=== PATIENT | female | born 1950 | race Caucasian/White ===

== ENCOUNTER 2016-09-05 10:39 | Emergency (ER) | payer MEDICARE ==
[~2016-09-05] VITALS: Ht 165.1 cm; Wt 90.0 kg
[~2016-09-05 10:39] MED LIST: ALPR-138 PO; CINA30 PO; FLUO10TA PO; INDO25CA PO; KCL10C PO; LACT PO; MAGN400 PO; METR500T10 PO; NITR-29 PO; RENATAB5 PO; SEVEL800 PO; WELL150T PO; [UNRECOGNIZED DRUG - CODE] PO; [UNRECOGNIZED DRUG - CODE] PO
[2016-09-05 11:01] VITALS: BP 154/91; PULSE 121; RESP 17; TEMP 98.3; O2SAT 100
--- NOTE | 2016-09-05 11:07 | PD ---
HPI Chief Complaint: Cardiac Complaint Time Seen by Provider: 10:49 Travel History International Travel<30 days: No Contact w/Intl Traveler<30days: No Traveled to known affect area: No History of Present Illness HPI This 66-year-old female is complaining of palpitations. She says the palpitations started around 9:00 this morning. She took a tablet of metoprolol. She has had these palpitations before related to atrial fibrillation. She takes metoprolol on an as-needed basis. She took the metoprolol and waited she rechecked her heart rate was 125. She has a dull ache in the left side of her chest. She gets atrial fibrillation about every month or 2. She is supposed to take aspirin daily. She has a history of renal failure and is on home peritoneal dialysis. PFSH Past Medical History Arthritis: Yes (back and neck off and on- not all the time.) Asthma: No Atrial Fibrillation: Yes Autoimmune Disease: No Blood Disorders: No Anxiety: Yes Depression: Yes Heart Rhythm Problems: Yes Cancer: Yes (left breast biopsy x2, surgery to remove infected clot) Cardiac Catheterization: Yes (2005) Cardiovascular Problems: Yes (AF) High Cholesterol: Yes Chemotherapy: No Chest Pain: Yes (intermittent) Congestive Heart Failure: No COPD: No Cerebrovascular Accident: No Diabetes: Yes (Borderline ) Patient Takes Glucophage: No Dialysis: Yes (PERITONEAL DIALYSIS) Diminished Hearing: Yes (Slightly hard of hearing) Endocrine: No Gastrointestinal Disorders: Yes (Hx "Gastric Distress") GERD: No Glaucoma: Yes Gout: Yes Genitourinary: Yes (Polycystic Kidney Disease) Headaches: Yes Hepatitis: No Hiatal Hernia: No Hypertension: Yes Immune Disorder: No Implanted Vascular Access Dvce: Yes Kidney Stones: No Musculoskeletal: Yes Neurologic: No Psychiatric: Yes Reproductive: No Respiratory: No Integumentary: Yes (Hx Eczema) Immunizations Current: Yes Migraines: Yes Myocardial Infarction: No Radiation Therapy: Yes (2-3yrs ago - nothing recurrant since) Renal Failure: Yes Seizures: No Sickle Cell Disease: No Sleep Apnea: No Thyroid Disease: No Ulcer: No Tetanus Vaccination: < 5 Years Influenza Vaccination: Yes Menopausal: Yes : 1 Dilation and Curettage (D&C): Yes Past Surgical History Abdominal Surgery: Yes (gallbladder, Peritoneal dialysis) AICD: No Arteriovenous Shunt: No Body Medical Devices: Peritoneal Port Cardiac Surgery: No Cholecystectomy: Yes Coronary Artery Bypass Graft: No Ear Surgery: No Endocrine Surgery: No Eye Surgery: No Genitourinary Surgery: No Gynecologic Surgery: Yes (D & C >10yrs) Insulin Pump: No Joint Replacement: No Oral Surgery: Yes (teeth extraction, root canal, one capped tooth) Pacemaker: No Thoracic Surgery: No Other Surgery: Yes (Insertion Peritoneal Dialysis Catheter, Right abdomen) Social History Alcohol Use: No Tobacco Use: No Substance Use: No Allergies-Medications (Allergen,Severity, Reaction): Coded Allergies: Codeine (Verified Allergy, Severe, NAUSEA/VOMITING, 09/05/16) Morphine (Verified Allergy, Severe, MIGRAINES, 09/05/16) Latex (Verified Allergy, Intermediate, Rash, 09/05/16) Percocet (Verified Allergy, Intermediate, ITCHING, 09/05/16) Doxycycline (Verified Adverse Reaction, Severe, GI UPSET, 09/05/16) *MDRO Multi-Drug Resistant Organism (Verified Adverse Reaction, Unknown, ) ESBL E.coli (urine) - 02/15/2016 Reported Meds & Prescriptions Reported Meds & Active Scripts Active Reported Sensipar (Cinacalcet) 90 Mg Tab 90 Mg PO DAILY Renvela (Sevelamer Carbonate) 800 Mg Tab 4 Tab PO TID Protonix (Pantoprazole Sodium) 40 Mg Tab 40 Mg PO DAILY Metoprolol Tartrate 50 Mg Tab 50 Mg PO DAILY Ketodan (Ketoconazole (Topical)) 2 % Aer 1 Applic TOPICAL DAILY K-Tab (Potassium Chloride) 10 Meq Tab 10 Meq PO BID Indomethacin 25 Mg Cap 25 Mg PO TID Take with food, milk, or antacids to decrease stomach adverse effects. Lortab (Hydrocodone-Acetaminophen) 5-325 Mg Tab 1 Tab PO Q8HR PRN Fluoxetine (Fluoxetine HCl) 40 Mg Cap 40 Cap PO DAILY Fludrocortisone (Fludrocortisone Acetate) 0.1 Mg Tab 0.1 Mg PO DAILY Bupropion HCl ER 12 HR (Bupropion HCl) 150 Mg Tab 150 Mg PO Q12HR Aspirin DR (Aspirin) 325 Mg Tabdr 325 Mg PO DAILY Asacol HD (Mesalamine) 800 Mg Tab 800 Mg PO TID Swallow whole. Take on an empty stomach. Alprazolam 0.25 Mg Tab 0.25 Mg PO Q8H PRN Review of Systems General / Constitutional: No: Fever, Chills Eyes: No: Diploplia, Blurred Vision HENT: No: Headaches Cardiovascular: Positive: Chest Pain or Discomfort, Palpitations, Irregular Rhythm, Tachycardia Respiratory: No: Wheezing, Sneezing Gastrointestinal: No: Vomiting, Diarrhea Genitourinary: No: Urgency Musculoskeletal: No: Myalgias Skin: No Rash Neurologic: No: Weakness Hematologic/Lymphatic: No: Easy Bruising Physical Exam Narrative GENERAL: Well-developed female SKIN: Warm and dry. HEAD: Atraumatic. Normocephalic. EYES: Pupils equal and round. No scleral icterus. No injection or drainage. ENT: No nasal bleeding or discharge. Mucous membranes pink and moist. NECK: Trachea midline. No JVD. CARDIOVASCULAR: Rapid irregular rate and rhythm. No murmur appreciated. RESPIRATORY: No accessory muscle use. Clear to auscultation. Breath sounds equal bilaterally. GASTROINTESTINAL: Abdomen soft, non-tender, nondistended. Hepatic and splenic margins not palpable. MUSCULOSKELETAL: No obvious deformities. No clubbing. No cyanosis. No edema. NEUROLOGICAL: Awake and alert. No obvious cranial nerve deficits. Motor grossly within normal limits. Normal speech. PSYCHIATRIC: Appropriate mood and affect; insight and judgment normal. Data Data Last Documented VS Vital Signs Date Time Temp Pulse Resp B/P Pulse Ox O2 Delivery O2 Flow Rate FiO2 09/05/16 12:43 71 17 132/71 97 Room Air 09/05/16 11:01 98.3 Orders Electrocardiogram (09/05/16 11:01) Complete Blood Count With Diff (09/05/16 11:01) Basic Metabolic Panel (Bmp) (09/05/16 11:01) Troponin I (09/05/16 11:01) Chest, Single Ap (09/05/16 11:01) Metoprolol Tartrate Inj (Lopressor Inj) (09/05/16 11:15) Urinalysis - C+S If Indicated (09/05/16 11:20) Urine Culture (09/05/16 11:20) Potassium Cl 40 Meq/30 Ml Liq (Kcl 40 Me (09/05/16 12:15) Labs Laboratory Tests Test 09/05/16 09/05/16 11:20 11:45 Urine Collection Type CLEAN CATCH Urine Color STRAW Urine Turbidity MOD Urine pH 6.5 Urine Specific [place] 1.010 Urine Protein 30 mg/dL Urine Glucose (UA) NEG mg/dL Urine Ketones NEG mg/dL Urine Occult Blood MOD Urine Nitrite POS Urine Bilirubin NEG Urine Leukocyte Esterase LARGE Urine RBC 20-24 /hpf Urine WBC INNUM /hpf Urine Squamous Epithelial 6-8 /hpf Cells Urine Bacteria FEW /hpf Microscopic Urinalysis Comment CULTURE INDICATED Urine Collection Time 11:20 White Blood Count 10.9 TH/MM3 Red Blood Count 3.33 MIL/MM3 Hemoglobin 11.1 GM/DL Hematocrit 34.1 % Mean Corpuscular Volume 102.4 FL Mean Corpuscular Hemoglobin 33.4 PG Mean Corpuscular Hemoglobin 32.6 % Concent Red Cell Distribution Width 17.1 % Platelet Count 184 TH/MM3 Mean Platelet Volume 7.2 FL Neutrophils (%) (Auto) 85.1 % Lymphocytes (%) (Auto) 7.0 % Monocytes (%) (Auto) 5.0 % Eosinophils (%) (Auto) 2.5 % Basophils (%) (Auto) 0.4 % Neutrophils # (Auto) 9.3 TH/MM3 Lymphocytes # (Auto) 0.8 TH/MM3 Monocytes # (Auto) 0.5 TH/MM3 Eosinophils # (Auto) 0.3 TH/MM3 Basophils # (Auto) 0.0 TH/MM3 CBC Comment DIFF FINAL Differential Comment Sodium Level 140 MEQ/L Potassium Level 2.5 MEQ/L Chloride Level 101 MEQ/L Carbon Dioxide Level 24.1 MEQ/L Anion Gap 15 MEQ/L Blood Urea Nitrogen 39 MG/DL Creatinine 11.00 MG/DL Estimat Glomerular Filtration 4 ML/MIN Rate Random Glucose 82 MG/DL Calcium Level 8.5 MG/DL Troponin I 0.02 NG/ML [facility] Medical Decision Making Medical Screen Exam Complete: Yes Emergency Medical Condition: Yes Medical Record Reviewed: Yes Differential Diagnosis Differential includes slight slight imbalance, atrial fibrillation, Narrative Course EKG shows atrial fibrillation. Patient was observed and had periods where her heart rate was 120 and I will go down to 70 with sinus rhythm. I had initially ordered Lopressor but it was withheld as she appeared to be normalizing. She is converted to normal sinus rhythm without any additional medication. Her potassium is low and she has been given some potassium supplement. She has also been found to have a urinary tract infection. Diagnosis Primary Impression: Paroxysmal atrial fibrillation with rapid ventricular response Additional Impressions: Hypokalemia Urinary tract infection Qualified Code: N30.00 - Acute cystitis without hematuria Scripts Ciprofloxacin (Cipro)500 Mg [id number] Mg PO BID #7 TAB Ref 0 Prov:Blanco Hudson MD 09/05/16 Disposition: 01 DISCHARGE HOME Condition: Stable Blanco Hudson MD Sep 05, 2016 11:07
[2016-09-05] MEDS ORDERED: METOPROLOL TARTRATE 5 MG/5 ML VIAL IV PUSH ONE (11:15)
[2016-09-05 11:28] LABS: GLUCOSE,URINE NEG (NEG); KETONE, URINE NEG (NEG); PH, URINE 6.5 (5.0-8.5)
[2016-09-05] MEDS ORDERED: INDO25CA PO (11:32)
[2016-09-05] MEDS ORDERED: K-TA10TA PO (11:32)
[2016-09-05] MEDS ORDERED: FLUD.1 PO (11:32)
[2016-09-05] MEDS ORDERED: PROT40TA PO (11:32)
[2016-09-05] MEDS ORDERED: BUPR1TAB29 PO (11:32)
[2016-09-05] MEDS ORDERED: SENS90TA PO (11:32)
[2016-09-05] MEDS ORDERED: HYDR-3533 PO (11:32)
[2016-09-05] MEDS ORDERED: ASPI325T27 PO (11:32)
[2016-09-05] MEDS ORDERED: METO50TA PO (11:32)
[2016-09-05] MEDS ORDERED: ASAC800T PO (11:32)
[2016-09-05] MEDS ORDERED: KETO2AER3 TOPICAL (11:32)
[2016-09-05] MEDS ORDERED: SEVEL800 PO (11:32)
[2016-09-05] MEDS ORDERED: ALPR0.25 PO (11:32)
[2016-09-05] MEDS ORDERED: FLUO40CA PO (11:32)
--- NOTE | 2016-09-05 11:33 | RADHPO ---
EXAM DATE/TIME: 09/05/2016 11:15 [facility] COMPARISON: CHEST SINGLE AP, February 15, 2016, 13:56. INDICATIONS : Chest pain. MEDICAL HISTORY : Hypertension. Cardiovascular disease. SURGICAL HISTORY : None. ENCOUNTER: Initial ACUITY: 1 day PAIN SCORE: 5/10 LOCATION: Bilateral chest FINDINGS: A single view of the chest demonstrates the lungs to be symmetrically aerated without evidence of mas s, infiltrate or effusion. The cardiomediastinal contours are unremarkable. Osseous structures are intact. CONCLUSION: No acute disease. Taz Cuellar MD on September 05, 2016 at 11:31 Board Certified Radiologist. This report was verified electronically.
[2016-09-05 11:36] LABS: BLOOD, URINE MOD (NEG); NITRITE,URINE POS (NEG)
[2016-09-05 11:37] LABS: METHOD OF COLLECTION CLEAN CATCH; URINE COLOR STRAW (YELLW/STRAW); WBC, URINE INNUM /hpf (0-5)
[2016-09-05 11:38] LABS: BACTERIA, URINE FEW /hpf; COMMENT (UR) CULTURE INDICATED; CULTURE IF INDICATED CULTURE INDICATED
[2016-09-05 11:50] VITALS: BP 118/83; PULSE 98; RESP 17; O2SAT 98
[2016-09-05 11:57] LABS: AUTOMATED NEUTROPHIL # 9.3 TH/MM3 (1.8-7.7); BASOPHIL % 0.4 % (0.0-2.0); EOSINOPHIL # 0.3 TH/MM3 (0-0.4); EOSINOPHIL % 2.5 % (0.0-4.0); HEMATOCRIT 34.1 % (35.0-46.0); HEMO FLAGS DIFF FINAL; LYMPHOCYTE # 0.8 TH/MM3 (1.0-4.8); MEAN CELL VOLUME 102.4 FL (80.0-100.0); MEAN CORPUSCULAR HEMOGLOBIN 33.4 PG (27.0-34.0); MEAN CORPUSCULAR HGB CONC 32.6 % (32.0-36.0); NEUT % 85.1 % (16.0-70.0); PLATELET COUNT 184 TH/MM3 (150-450); RED BLOOD COUNT 3.33 MIL/MM3 (4.00-5.30); RED CELL DISTRIBUTION WIDTH 17.1 % (11.6-17.2); WHITE BLOOD COUNT 10.9 TH/MM3 (4.0-11.0)
[2016-09-05 12:09] LABS: BICARBONATE 24.1 MEQ/L (21.0-32.0)
[2016-09-05 12:10] LABS: POTASSIUM 2.5 MEQ/L (3.5-5.1)
[2016-09-05] MEDS ORDERED: POTASSIUM CL 40 MEQ/30 ML LIQ UDC PO ONE (12:15)
[2016-09-05 12:43] VITALS: BP 132/71; PULSE 71; RESP 17; O2SAT 97
[2016-09-05] MEDS ORDERED: CIPR-9 PO (12:52)
[2016-09-05] MEDS ORDERED: CIPROFLOXACIN 500 MG TAB PO ONE (13:15)
--- NOTE | 2016-09-06 17:27 | EKG ---
Date Performed: 09/05/2016 Time Performed: 10:39:28 PTAGE: 66 years EKG: Sinus rhythm WITH PAC's NONSPECIFIC ST-T WAVE CHANGES/LIKELY NO SIGNIFICANT CHANGE. Abnormal ECG PREVIOUS TRACING : 02/15/2016 14.14 DOCTOR: Ryanne Brantley Interpretating Date/Time 09/06/2016 17:25:38
== END 2016-09-05 13:14 | disposition home or self-care (01) ==
LOC: PHED 10:39
DX: I48.0 Paroxysmal atrial fibrillation (principal); N18.9 Chronic kidney disease, unspecified; I12.9 Hypertensive chronic kidney disease with stage 1 through stage 4 chronic kidney disease, or unspecified chronic kidney disease; E78.00 Pure hypercholesterolemia, unspecified; E87.6 Hypokalemia; N39.0 Urinary tract infection, site not specified; Z99.2 Dependence on renal dialysis
CPT/HCPCS: 71010; 80048; 81001; 84484; 85025; 87077; 87086; 87186; 93005

== ENCOUNTER → 2017-06-30 | Day surgery (SDC) | payer MEDICARE ==
[~2017-06-30] MED LIST changes: -ALPR-138 PO; +ALPR0.25 PO; +ASAC800T PO; +ASPI325T27 PO; +BUPR1TAB29 PO; -CINA30 PO; +CIPR-9 PO; +FLUD.1 PO; -FLUO10TA PO; +FLUO40CA PO; +HYDR-3533 PO; +K-TA10TA PO; -KCL10C PO; +KETO2AER3 TOPICAL; -LACT PO; -MAGN400 PO; +METO50TA PO; -METR500T10 PO; -NITR-29 PO; +PROPOFOL 500 MG/50 ML BTL IV ONE; +PROT40TA PO; -RENATAB5 PO; +SENS90TA PO; +SODIUM CHLOR 0.9% 250 ML BAG IV ONE; -WELL150T PO; -[UNRECOGNIZED DRUG - CODE] PO; -[UNRECOGNIZED DRUG - CODE] PO
--- NOTE | 2017-06-30 11:05 | GIPROC ---
[facility] [address], [address] EGD PROCEDURE REPORT EXAM DATE: 06/30/2017 PATIENT NAME: Brandi Chavez MR #: [id number] BIRTHDATE: 1950 ATTENDING: Bud Tirado MD ORDER #: [id number] RESISTOR COATER: Dano Ospina RN STATUS: outpatient INDICATIONS: The patient is a 66 yr old female here for an EGD due to epigastric abdominal pain PROCEDURE PERFORMED: EGD w/ biopsy MEDICATIONS: None and Per Anesthesia. TOPICAL ANESTHETIC: CONSENT: The patient understands the risks and benefits of the procedure and understands that these risks include, but are not limited to: sedation, allergic reaction, infection, perforation and/or bleeding. Alternative means of evaluation and treatment include, among others: physical exam, x-rays, and/or surgical intervention. The patient elects to proceed with this endoscopic procedure. medical equipment was checked for proper function. Hand hygiene and appropriate measures for infection prevention was taken. After the risks, benefits and alternatives of the procedure were thoroughly explained, Informed consent was verified, confirmed and timeout was successfully executed by the treatment team. The patient was anesthetized with topical anesthesia and the EC-[id number] ([id number]) endoscope was introduced through the mouth and advanced to the second portion of the duodenum. Retroflexed views revealed no abnormalities The gastroscope was then slowly withdrawn and removed. ESOPHAGUS: There was LA Class A esophagitis noted. A biopsy was performed using cold forceps. Sample sent for histology. STOMACH: There was erythematous moderate gastritis in the gastric antrum. A biopsy was performed using cold forceps. Sample sent for histology. DUODENUM: The duodenal mucosa appeared normal in the bulb and second portion of the duodenum. ADVERSE EVENTS: There were no complications. IMPRESSIONS: 1. There was LA Class A esophagitis noted; biopsy was performed 2. There was erythematous gastritis in the gastric antrum; biopsy was performed 3. Normal duodenal mucosa in the bulb and second portion of the duodenum 4. Retroflexed views revealed no abnormalities RECOMMENDATIONS: 1. Await biopsy results. Biopsy results will not be ready for 7-10 days. If you don't hear from us in two weeks, call our office for biopsy results. 2. Anti-reflux regimen 3. Continue PPI 4. Avoid NSAIDS PATIENT CONDITION: stable DISPOSITION: Home REPEAT EXAM: Return 1 year EGD pending biopsy results Bud Tirado MD eSigned: Bud Tirado MD 06/30/2017 11:05 AM cc: Yareli Banks PATIENT NAME: Scott Brandi E MR#: [id number]
--- NOTE | 2017-06-30 11:21 | GIPROC ---
[facility] [address] [facility], [address] COLONOSCOPY PROCEDURE REPORT EXAM DATE: 06/30/2017 PATIENT NAME: Brandi Chavez MR #: [id number] BIRTHDATE: 1950 ENDOSCOPIST: Bud Tirado MD ORDER #: [id number] PASSENGER BARGE MASTER: Dano Ospina RN STATUS: outpatient INDICATIONS: The patient is a 66 yr old female here for a colonoscopy due to abdominal pain in the left lower quadrant PROCEDURE PERFORMED: Colonoscopy with biopsy MEDICATIONS: None and Per Anesthesia. PREP QUALITY: The [place] Bowel Prep Score was Right colon 2, Mid colon 2, and Left colon 3. Total = 7. ESTIMATED BLOOD LOSS: None CONSENT: The patient understands the risks and benefits of the procedure and understands that these risks include, but are not limited to: sedation, allergic reaction, infection, perforation and/or bleeding. Alternative means of evaluation and treatment include, among others: physical exam, x-rays, and/or surgical intervention. The patient elects to proceed with this endoscopic procedure. medical equipment was checked for proper function. Hand hygiene and appropriate measures for infection prevention was taken. After the risks, benefits and alternatives of the procedure were thoroughly explained, Informed consent was verified, confirmed and timeout was successfully executed by the treatment team. A digital exam revealed external hemorrhoids The [id number] ([id number]) endoscope was introduced through the anus and advanced to the cecum, which was identified by both the appendix and ileocecal valve. The instrument was then slowly withdrawn as the colon was fully examined. COLON FINDINGS: Moderate diverticulosis was noted in the sigmoid colon. No bleeding was noted from the diverticulosis. A polypoid shaped flat polyp ranging between 3-7mm in size was found in the ascending colon. Multiple biopsies were performed using cold forceps. Retroflexed views revealed internal hemorrhoids and Retroflexed views revealed medium internal hemorrhoids The scope was then completely withdrawn from the patient and the procedure terminated. PROCEDURE WITHDRAWAL TIME:7minutes ADVERSE EVENTS: There were no complications. IMPRESSIONS: 1. Moderate diverticulosis was noted in the sigmoid colon 2. A flat polyp ranging between 3-7mm in size was found in the ascending colon; multiple biopsies were performed using cold forceps 3. Retroflexed views revealed internal hemorrhoids 4. Retroflexed views revealed medium internal hemorrhoids 5. Revealed external hemorrhoids RECOMMENDATIONS: 1. Await biopsy results. Biopsy results will not be ready for 7-10 days. If you don't hear from us in two weeks, call our office for results. 2. Benefiber 2 tsp daily 3. Continue surveillance 4. Yearly hemoccult 5. No seeds, nuts and popcorn in diet 6. Xray for CT of abdomen without contrast 7. Xray for CT of pelvis without contrast 8. Follow-up: GI Clinic 3 week(s) RECALL: Return 3 years Colonoscopy, pending biopsy results Bud Tirado MD eSigned: Bud Tirado MD 06/30/2017 11:21 AM cc: Bailee Clemente [facility] PATIENT NAME: Brandi Chavez MR#: [id number]
== END | disposition home or self-care (01) ==
LOC: ESDC 09:30
PROVIDERS: ATTEND Internal Medicine Gastroenterology
DX: R10.32 Left lower quadrant pain (principal); K64.4 Residual hemorrhoidal skin tags; K57.90 Diverticulosis of intestine, part unspecified, without perforation or abscess without bleeding; D12.2 Benign neoplasm of ascending colon; K64.8 Other hemorrhoids; K20.9 Esophagitis, unspecified; R10.13 Epigastric pain; K29.70 Gastritis, unspecified, without bleeding
CPT/HCPCS: 00740; 00810; 43239; 45380; 88305; 88312; J3010; J7050

== ENCOUNTER 2017-07-04 14:28 | Emergency (ER) | payer MEDICARE ==
[~2017-07-04] VITALS: Ht 165.1 cm; Wt 89.0 kg
[~2017-07-04 14:28] MED LIST changes: -PROPOFOL 500 MG/50 ML BTL IV ONE; -SODIUM CHLOR 0.9% 250 ML BAG IV ONE
[2017-07-04 14:33] VITALS: BP 118/71; PULSE 77; RESP 16; TEMP 98.9; O2SAT 98
[2017-07-04] MEDS ORDERED: DICY10CA12 PO (15:34)
[2017-07-04] MEDS ORDERED: TRAM50TA PO (15:34)
[2017-07-04] MEDS ORDERED: KETO2CRE TOPICAL (15:34)
--- NOTE | 2017-07-04 16:40 | PD ---
HPI Chief Complaint: GI Complaint Time Seen by Provider: 15:49 Travel History International Travel<30 days: No Contact w/Intl Traveler<30days: No Traveled to known affect area: No History of Present Illness HPI PATIENT HAD UTI DIAGNOSED LAST WEEK, PLACED ON ABX...ON FRIDAY HAD PREP FOR UPPER AND LOWER GI, SINCE THEN HAS HAD LOOSE STOOLS. HERE FOR EVALUATION BECAUSE SHE HAS HAD A H/O CDIFF BEFORE. ALTHOUGH SHE ADMITS THAT THIS MAY BE FROM THE PREP WELL. PATIENT DENIES FEVER/CHILLS/ABD PAIN/CP/N/V/ AT THIS TIME. NO ALLEVIATING OR AGGRAVATING FACTORS GI [facility] Past Medical History Arthritis: Yes (back and neck off and on- not all the time.) Asthma: No Atrial Fibrillation: Yes Autoimmune Disease: No Blood Disorders: No Anxiety: Yes Depression: Yes Heart Rhythm Problems: Yes Cancer: Yes (left breast biopsy x2, surgery to remove infected clot) Cardiac Catheterization: Yes (2005) Cardiovascular Problems: Yes (AFIB) High Cholesterol: Yes Chemotherapy: No Chest Pain: Yes (intermittent) Congestive Heart Failure: No COPD: No Cerebrovascular Accident: No Diabetes: Yes (Borderline ) Patient Takes Glucophage: No Dialysis: Yes (PERITONEAL DIALYSIS) Diminished Hearing: Yes (Slightly hard of hearing) Endocrine: No Gastrointestinal Disorders: Yes (Hx "Gastric Distress") GERD: No Glaucoma: Yes Gout: Yes Genitourinary: Yes (Polycystic Kidney Disease) Headaches: Yes Hepatitis: No Hiatal Hernia: No Hypertension: Yes Immune Disorder: No Implanted Vascular Access Dvce: Yes Kidney Stones: No Musculoskeletal: Yes Neurologic: No Psychiatric: Yes Reproductive: No Respiratory: No Integumentary: Yes (Hx Eczema) Immunizations Current: Yes Migraines: Yes Myocardial Infarction: No Radiation Therapy: Yes (2-3yrs ago - nothing recurrant since) Renal Failure: Yes Seizures: No Sickle Cell Disease: No Sleep Apnea: No Thyroid Disease: No Ulcer: No Menopausal: Yes : 1 Dilation and Curettage (D&C): Yes Past Surgical History Abdominal Surgery: Yes (gallbladder, Peritoneal dialysis) AICD: No Arteriovenous Shunt: No Body Medical Devices: Peritoneal Port Cardiac Surgery: No Cholecystectomy: Yes Coronary Artery Bypass Graft: No Ear Surgery: No Endocrine Surgery: No Eye Surgery: No Genitourinary Surgery: No Gynecologic Surgery: Yes (D & C >10yrs) Insulin Pump: No Joint Replacement: No Oral Surgery: Yes (teeth extraction, root canal, one capped tooth) Pacemaker: No Thoracic Surgery: No Other Surgery: Yes (Insertion Peritoneal Dialysis Catheter, Right abdomen) Social History Alcohol Use: No Tobacco Use: No Substance Use: No Allergies-Medications (Allergen,Severity, Reaction): Coded Allergies: codeine (Unverified Allergy, Severe, NAUSEA/VOMITING, 07/04/17) morphine (Unverified Allergy, Severe, MIGRAINES, 07/04/17) acetaminophen (Unverified Allergy, Intermediate, ITCHING, 07/04/17) latex (Unverified Allergy, Intermediate, Rash, 07/04/17) oxycodone (Unverified Allergy, Intermediate, ITCHING, 07/04/17) doxycycline (Unverified Adverse Reaction, Severe, GI UPSET, 07/04/17) *MDRO Multi-Drug Resistant Organism (Verified Adverse Reaction, Unknown, 07/04/17) ESBL E.coli (urine) - 02/15/2016 Reported Meds & Prescriptions Reported Meds & Active Scripts Active Reported Ketoconazole Topical 2% Cream 1 Applic TOPICAL DAILY Dicyclomine (Dicyclomine HCl) 10 Mg Cap 10 Mg PO QID Tramadol (Tramadol HCl) 50 Mg Tab 50 Mg PO QID PRN Renvela (Sevelamer Carbonate) 800 Mg Tab 4 Tab PO TID K-Tab (Potassium Chloride) 10 Meq Tab 10 Meq PO BID Indomethacin 25 Mg Cap 25 Mg PO TID Take with food, milk, or antacids to decrease stomach adverse effects. Aspirin DR (Aspirin) 325 Mg Tabdr 325 Mg PO DAILY Alprazolam 0.25 Mg Tab 0.25 Mg PO Q8H PRN Review of Systems Except as stated in HPI: all other systems reviewed are Neg General / Constitutional: No: Fever Eyes: No: Visual changes HENT: No: Headaches Cardiovascular: No: Chest Pain or Discomfort Respiratory: No: Shortness of Breath Gastrointestinal: Positive: Diarrhea Genitourinary: No: Dysuria Musculoskeletal: No: Pain Skin: No Rash Neurologic: No: Weakness Psychiatric: No: Depression Endocrine: No: Polydipsia Hematologic/Lymphatic: No: Easy Bruising Physical Exam Narrative GENERAL: SKIN: Warm and dry. HEAD: Atraumatic. Normocephalic. EYES: Pupils equal and round. No scleral icterus. No injection or drainage. ENT: No nasal bleeding or discharge. Mucous membranes pink and moist. NECK: Trachea midline. No JVD. CARDIOVASCULAR: Regular rate and rhythm. RESPIRATORY: No accessory muscle use. Clear to auscultation. Breath sounds equal bilaterally. GASTROINTESTINAL: Abdomen soft, non-tender, nondistended. MUSCULOSKELETAL: Extremities without clubbing, cyanosis, or edema. No obvious deformities. NEUROLOGICAL: Awake and alert. No obvious cranial nerve deficits. Motor grossly within normal limits. Five out of 5 muscle strength in the arms and legs. Normal speech. PSYCHIATRIC: Appropriate mood and affect; insight and judgment normal. Data Data Last Documented VS Vital Signs Date Time Temp Pulse Resp B/P (MAP) Pulse Ox O2 Delivery O2 Flow Rate FiO2 07/04/17 14:33 98.9 77 16 118/71 (87) 98 Orders Orders Complete Blood Count With Diff (07/04/17 16:14) Basic Metabolic Panel (Bmp) (07/04/17 16:14) C Diff Toxin Pcr (07/04/17 16:14) Iv Access Insert/Monitor (07/04/17 16:14) Stool Wbc (Leukocytes) (07/04/17 16:14) Ct Abd/Pel W/O Iv Contrast (07/04/17 16:40) Labs Laboratory Tests Test 07/04/17 16:55 White Blood Count 9.3 TH/MM3 Red Blood Count 3.06 MIL/MM3 Hemoglobin 9.6 GM/DL Hematocrit 29.9 % Mean Corpuscular Volume 97.8 FL Mean Corpuscular Hemoglobin 31.5 PG Mean Corpuscular Hemoglobin Concent 32.2 % Red Cell Distribution Width 14.7 % Platelet Count 139 TH/MM3 Mean Platelet Volume 8.3 FL Neutrophils (%) (Auto) 78.2 % Lymphocytes (%) (Auto) 10.2 % Monocytes (%) (Auto) 8.1 % Eosinophils (%) (Auto) 2.8 % Basophils (%) (Auto) 0.7 % Neutrophils # (Auto) 7.2 TH/MM3 Lymphocytes # (Auto) 0.9 TH/MM3 Monocytes # (Auto) 0.8 TH/MM3 Eosinophils # (Auto) 0.3 TH/MM3 Basophils # (Auto) 0.1 TH/MM3 CBC Comment DIFF FINAL Differential Comment Creatinine 15.00 MG/DL Random Glucose 92 MG/DL Calcium Level 9.0 MG/DL Sodium Level 136 MEQ/L Potassium Level 3.2 MEQ/L Chloride Level 95 MEQ/L Carbon Dioxide Level 22.5 MEQ/L Anion Gap 19 MEQ/L Estimat Glomerular Filtration Rate 2 ML/MIN MDM Medical Decision Making Medical Screen Exam Complete: Yes Emergency Medical Condition: Yes Medical Record Reviewed: Yes Differential Diagnosis POST PREP DIARRHEA V CDIFF V Narrative Course CT ONLY POSITIVE FOR POLYCYSTIC DZ, WHICH IS KNOWN TO PATIENT, NO FREE AIR. Diagnosis Primary Impression: Diarrhea Qualified Codes: R19.7 - Diarrhea, unspecified Referrals: Christopher Park MD FOR OUTPATIENT TESTING OF STOOL SINCE YOU WERE UNABLE TO PROVIDE US WITH ANY STOOL SPECIMEN WHILE IN THE ER Disposition: 01 DISCHARGE HOME Condition: Stable Clive Peralta MD Jul 04, 2017 16:40
[2017-07-04 17:10] LABS: AUTOMATED NEUTROPHIL # 7.2 TH/MM3 (1.8-7.7); BASOPHIL # 0.1 TH/MM3 (0-0.2); BASOPHIL % 0.7 % (0.0-2.0); EOSINOPHIL # 0.3 TH/MM3 (0-0.4); EOSINOPHIL % 2.8 % (0.0-4.0); HEMATOCRIT 29.9 % (35.0-46.0); HEMO FLAGS DIFF FINAL; LYMPH % 10.2 % (9.0-44.0); LYMPHOCYTE # 0.9 TH/MM3 (1.0-4.8); MEAN CELL VOLUME 97.8 FL (80.0-100.0); MEAN CORPUSCULAR HEMOGLOBIN 31.5 PG (27.0-34.0); MEAN CORPUSCULAR HGB CONC 32.2 % (32.0-36.0); MONO % 8.1 % (0.0-8.0); NEUT % 78.2 % (16.0-70.0); PLATELET COUNT 139 TH/MM3 (150-450); RED BLOOD COUNT 3.06 MIL/MM3 (4.00-5.30); RED CELL DISTRIBUTION WIDTH 14.7 % (11.6-17.2); WHITE BLOOD COUNT 9.3 TH/MM3 (4.0-11.0)
[2017-07-04 17:17] LABS: POTASSIUM 3.2 MEQ/L (3.5-5.1)
[2017-07-04 17:20] LABS: BICARBONATE 22.5 MEQ/L (21.0-32.0)
--- NOTE | 2017-07-04 17:39 | RADRPT ---
EXAM DATE/TIME: 07/04/2017 17:17 [facility] COMPARISON: CT ABDOMEN & PELVIS W/O CONTRAST, June 10, 2016, 15:35. INDICATIONS : Left upper quadrant pain, diarrhea and fever x 5 days. ORAL CONTRAST: No oral contrast ingested. RADIATION DOSE: 18.57 CTDIvol (mGy) MEDICAL HISTORY : Renal failure, chronic. Cardiovascular disease Carcinoma, breast.Hypertension. Polycystic kidney dis ease. SURGICAL HISTORY : Cholecystectomy. Peritoneal dialysis. ENCOUNTER: Initial ACUITY: 4 - 6 days PAIN SCALE: 5/10 LOCATION: Left upper quadrant TECHNIQUE: Volumetric scanning of the abdomen and pelvis was performed. Using automated exposure control and ad justment of the mA and/or kV according to patient size, radiation dose was kept as low as reasonably achievable to obtain optimal diagnostic quality images. DICOM format image data is available electro nically for review and comparison. FINDINGS: The lung base is are clear. Small low-density lesion adjacent to the falciform liver is again seen i n the liver. The spleen and pancreas unremarkable. Large polycystic kidneys are evident. There is trace fluid in pelvis with peroneal dialysis catheter in good position. There is no adenopathy. I don't see an abscess. Review of bone windows reveals only degenerative changes. CONCLUSION: Findings consistent with known polycystic kidney disease no other findings are apprec iated. No other significant amount appreciated. Mynor Rincon MD FACR on July 04, 2017 at 17:34 Board Certified Radiologist. This report was verified electronically.
== END 2017-07-04 20:24 | disposition home or self-care (01) ==
LOC: PHED 14:28
DX: R19.7 Diarrhea, unspecified (principal)
CPT/HCPCS: 74176; 80048; 85025

== ENCOUNTER 2017-07-10 16:37 | Emergency (ER) | payer MEDICARE ==
[~2017-07-10] VITALS: Ht 165.1 cm; Wt 87.3 kg
[~2017-07-10 16:37] MED LIST changes: -ASAC800T PO; -BUPR1TAB29 PO; -CIPR-9 PO; +DICY10CA12 PO; -FLUD.1 PO; -FLUO40CA PO; -HYDR-3533 PO; -KETO2AER3 TOPICAL; +KETO2CRE TOPICAL; -METO50TA PO; -PROT40TA PO; -SENS90TA PO; +TRAM50TA PO
[2017-07-10 16:53] VITALS: BP 119/73; PULSE 74; RESP 16; TEMP 98.6; O2SAT 99
[2017-07-10] MEDS ORDERED: MAGN400T2 PO (17:23)
[2017-07-10] MEDS ORDERED: AMLO5TAB2 PO (17:23)
[2017-07-10] MEDS ORDERED: METO50TA PO (17:23)
[2017-07-10] MEDS ORDERED: HYDROmorphone HCL PF 0.5 MG/0.5 ML SYRINGE IV PUSH ONE (17:30)
[2017-07-10] MEDS ORDERED: SODIUM CHLORIDE 0.9% FLUSH 10 ML FLUSH IV FLUSH PRN (17:30)
[2017-07-10] MEDS ORDERED: diphenhydrAMINE HCL 50 MG/ML VIAL IV PUSH ONE (17:30)
[2017-07-10] MEDS ORDERED: SODIUM CHLORID 0.9% 500 ML INJ 500 ML IV ONE (17:30)
[2017-07-10] MEDS ORDERED: PROCHLORPERAZINE INJ 10 MG/2 ML VIAL IV PUSH ONE (17:30)
[2017-07-10 17:59] VITALS: BP 143/78; PULSE 78; RESP 18; O2SAT 99
[2017-07-10 18:05] LABS: AUTOMATED NEUTROPHIL # 9.9 TH/MM3 (1.8-7.7); BASOPHIL % 0.4 % (0.0-2.0); EOSINOPHIL # 0.1 TH/MM3 (0-0.4); EOSINOPHIL % 1.2 % (0.0-4.0); HEMATOCRIT 33.8 % (35.0-46.0); HEMO FLAGS DIFF FINAL; LYMPH % 5.9 % (9.0-44.0); LYMPHOCYTE # 0.7 TH/MM3 (1.0-4.8); MEAN CELL VOLUME 96.8 FL (80.0-100.0); MEAN CORPUSCULAR HEMOGLOBIN 30.7 PG (27.0-34.0); MEAN CORPUSCULAR HGB CONC 31.8 % (32.0-36.0); MONO % 5.8 % (0.0-8.0); NEUT % 86.7 % (16.0-70.0); PLATELET COUNT 155 TH/MM3 (150-450); RED BLOOD COUNT 3.49 MIL/MM3 (4.00-5.30); RED CELL DISTRIBUTION WIDTH 14.7 % (11.6-17.2); WHITE BLOOD COUNT 11.4 TH/MM3 (4.0-11.0)
[2017-07-10 18:13] LABS: CHLORIDE 91 MEQ/L (98-107); SODIUM (NA) 129 MEQ/L (136-145)
[2017-07-10 18:18] LABS: ANION GAP 18 MEQ/L (5-15); BICARBONATE 20.3 MEQ/L (21.0-32.0); BLOOD UREA NITROGEN 43 MG/DL (7-18)
[2017-07-10 18:21] LABS: ALT (GPT) 15 U/L (10-53); AST (GOT) 9 U/L (15-37); GLOMERULAR FILTRATION RATE 2 ML/MIN (>89)
[2017-07-10 18:23] LABS: TOTAL BILIRUBIN ADULT 0.4 MG/DL (0.2-1.0)
[2017-07-10 18:24] LABS: ALKALINE PHOSPHATASE 122 U/L (45-117)
--- NOTE | 2017-07-10 18:50 | PD ---
HPI Chief Complaint: Abdominal Pain Time Seen by Provider: 17:14 Travel History International Travel<30 days: No Contact w/Intl Traveler<30days: No Traveled to known affect area: No History of Present Illness HPI 66 yo F complains of generalized abdominal pain for approx 1 week with nausea and vomiting today. No fever. Pain worse with palpation. Pt performs night peritoneal dialysis and has been doing so without difficulty. No diarrhea. She follows with Dr. Berumen of renal. Additional complaints include a generalized headache. Which started after the vomiting episode prior to today' s ER visit. Decreased appetite reported. PFSH Past Medical History Arthritis: Yes (back and neck off and on- not all the time.) Asthma: No Atrial Fibrillation: Yes Autoimmune Disease: No Blood Disorders: No Anxiety: Yes Depression: Yes Heart Rhythm Problems: Yes Cancer: Yes (left breast biopsy x2, surgery to remove infected clot) Cardiac Catheterization: Yes (2005) Cardiovascular Problems: Yes (htn on meds , a-fib) High Cholesterol: Yes Chemotherapy: No Chest Pain: Yes (intermittent) Congestive Heart Failure: No COPD: No Cerebrovascular Accident: No Diabetes: Yes (Borderline ) Patient Takes Glucophage: No Dialysis: Yes (PERITONEAL DIALYSIS) Diminished Hearing: Yes (Slightly hard of hearing) Endocrine: No Gastrointestinal Disorders: Yes (Hx "Gastric Distress") GERD: No Glaucoma: Yes Gout: Yes Genitourinary: Yes (Polycystic Kidney Disease) Headaches: Yes Hepatitis: No Hiatal Hernia: No Hypertension: Yes Immune Disorder: No Implanted Vascular Access Dvce: Yes Kidney Stones: No Musculoskeletal: Yes Neurologic: No Psychiatric: Yes Reproductive: No Respiratory: No Integumentary: Yes (Hx Eczema) Immunizations Current: Yes Migraines: Yes Myocardial Infarction: No Radiation Therapy: Yes (2-3yrs ago - nothing recurrant since) Renal Failure: Yes Seizures: No Sickle Cell Disease: No Sleep Apnea: No Thyroid Disease: No Ulcer: No Influenza Vaccination: Yes ?: Not Menopausal: Yes : 1 Dilation and Curettage (D&C): Yes Past Surgical History Abdominal Surgery: Yes (gallbladder, Peritoneal dialysis) AICD: No Arteriovenous Shunt: No Body Medical Devices: Peritoneal Port Cardiac Surgery: No Cholecystectomy: Yes Coronary Artery Bypass Graft: No Ear Surgery: No Endocrine Surgery: No Eye Surgery: No Genitourinary Surgery: No Gynecologic Surgery: Yes (D & C >10yrs) Insulin Pump: No Joint Replacement: No Oral Surgery: Yes (teeth extraction, root canal, one capped tooth) Pacemaker: No Thoracic Surgery: No Other Surgery: Yes (Insertion Peritoneal Dialysis Catheter, Right abdomen) Social History Alcohol Use: No Tobacco Use: No Substance Use: No Allergies-Medications (Allergen,Severity, Reaction): Coded Allergies: codeine (Unverified Allergy, Severe, NAUSEA/VOMITING, 07/10/17) morphine (Unverified Allergy, Severe, MIGRAINES, 07/10/17) acetaminophen (Unverified Allergy, Intermediate, ITCHING, 07/10/17) latex (Unverified Allergy, Intermediate, Rash, 07/10/17) oxycodone (Unverified Allergy, Intermediate, ITCHING, 07/10/17) doxycycline (Unverified Adverse Reaction, Severe, GI UPSET, 07/10/17) *MDRO Multi-Drug Resistant Organism (Verified Adverse Reaction, Unknown, 07/10/17) ESBL E.coli (urine) - 02/15/2016 Reported Meds & Prescriptions Reported Meds & Active Scripts Active Reported Magnesium Oxide 400 Mg Tab 400 Mg PO DAILY Metoprolol Tartrate 50 Mg Tab 50 Mg PO BID Amlodipine (Amlodipine Besylate) 5 Mg Tab 5 Mg PO DAILY Ketoconazole Topical 2% Cream 1 Applic TOPICAL DAILY Renvela (Sevelamer Carbonate) 800 Mg Tab 4 Tab PO TID K-Tab (Potassium Chloride) 10 Meq Tab 10 Meq PO BID Indomethacin 25 Mg Cap 25 Mg PO TID Take with food, milk, or antacids to decrease stomach adverse effects. Alprazolam 0.25 Mg Tab 0.25 Mg PO Q8H PRN Review of Systems Except as stated in HPI: all other systems reviewed are Neg General / Constitutional: No: Fever Physical Exam Narrative GENERAL: 66 yo F, WNWD, NAD SKIN: Warm and dry. HEAD: Atraumatic. Normocephalic. EYES: Pupils equal and round. No scleral icterus. No injection or drainage. ENT: No nasal bleeding or discharge. Mucous membranes pink and moist. NECK: Trachea midline. No JVD. CARDIOVASCULAR: Regular rate and rhythm. RESPIRATORY: No accessory muscle use. Clear to auscultation. Breath sounds equal bilaterally. GASTROINTESTINAL: Soft. Diffuse non-specific TTP. MUSCULOSKELETAL: Extremities without clubbing, cyanosis, or edema. No obvious deformities. NEUROLOGICAL: Awake and alert. No obvious cranial nerve deficits. Motor grossly within normal limits. Five out of 5 muscle strength in the arms and legs. Normal speech. PSYCHIATRIC: Appropriate mood and affect; insight and judgment normal. Data Data Last Documented VS Vital Signs Date Time Temp Pulse Resp B/P (MAP) Pulse Ox O2 Delivery O2 Flow Rate FiO2 07/10/17 18:34 18 07/10/17 17:59 78 143/78 (99) 99 Room Air 07/10/17 16:53 98.6 VS reviewed Orders Orders Complete Blood Count With Diff (07/10/17 17:18) Comprehensive Metabolic Panel (07/10/17 17:18) Lipase (07/10/17 17:18) Iv Access Insert/Monitor (07/10/17 17:18) Ecg Monitoring (07/10/17:18) Oximetry (07/10/17 17:18) Sodium Chloride 0.9% Flush (Ns Flush) (07/10/17 17:30) Prochlorperazine Inj (Compazine Inj) (07/10/17 17:30) Diphenhydramine Inj (Benadryl Inj) (07/10/17 17:30) Hydromorphone Pf Inj (Dilaudid Pf Inj) (07/10/17 17:30) Urinalysis - C+S If Indicated (07/10/17 17:28) Sodium Chlorid 0.9% 500 Ml Inj (Ns 500 M (07/10/17 17:30) Labs Laboratory Tests Test 07/10/17 17:40 White Blood Count 11.4 TH/MM3 Red Blood Count 3.49 MIL/MM3 Hemoglobin 10.7 GM/DL Hematocrit 33.8 % Mean Corpuscular Volume 96.8 FL Mean Corpuscular Hemoglobin 30.7 PG Mean Corpuscular Hemoglobin Concent 31.8 % Red Cell Distribution Width 14.7 % Platelet Count 155 TH/MM3 Mean Platelet Volume 8.9 FL Neutrophils (%) (Auto) 86.7 % Lymphocytes (%) (Auto) 5.9 % Monocytes (%) (Auto) 5.8 % Eosinophils (%) (Auto) 1.2 % Basophils (%) (Auto) 0.4 % Neutrophils # (Auto) 9.9 TH/MM3 Lymphocytes # (Auto) 0.7 TH/MM3 Monocytes # (Auto) 0.7 TH/MM3 Eosinophils # (Auto) 0.1 TH/MM3 Basophils # (Auto) 0.0 TH/MM3 CBC Comment DIFF FINAL Differential Comment Blood Urea Nitrogen 43 MG/DL Creatinine 15.00 MG/DL Random Glucose 112 MG/DL Total Protein 5.9 GM/DL Albumin 3.1 GM/DL Calcium Level 9.3 MG/DL Alkaline Phosphatase 122 U/L Aspartate Amino Transf (AST/SGOT) 9 U/L Alanine Aminotransferase (ALT/SGPT) 15 U/L Total Bilirubin 0.4 MG/DL Sodium Level 129 MEQ/L Potassium Level 3.0 MEQ/L Chloride Level 91 MEQ/L Carbon Dioxide Level 20.3 MEQ/L Anion Gap 18 MEQ/L Estimat Glomerular Filtration Rate 2 ML/MIN Lipase 172 U/L [facility] Medical Decision Making Medical Screen Exam Complete: Yes Emergency Medical Condition: Yes Differential Diagnosis Metabolic disarray, anemia, urinary tract infection, hepatobiliary disease, spontaneous bacterial peritonitis Narrative Course CBC & BMP Diagram 07/10/17 17:40 Total Protein 5.9 L, Albumin 3.1 L, Calcium Level 9.3, Alkaline Phosphatase 122 H, Aspartate Amino Transf (AST/SGOT) 9 L, Alanine Aminotransferase (ALT/SGPT) 15 , Total Bilirubin 0.4 Lipase 172 Compazine and 500cc NS bolus given. Pt reports improvement at 647pm. UA pending Case discussed with oncoming provider with plan for discharge home pending results of UA. Referrals: Josh Berumen MD 2 days Disposition: 01 DISCHARGE HOME Condition: Stable Eddie Ojeda MD Jul 10, 2017 18:50
[2017-07-10 19:09] LABS: BLOOD, URINE MOD (NEG); GLUCOSE,URINE NEG (NEG); KETONE, URINE NEG (NEG); NITRITE,URINE NEG (NEG); PH, URINE 6.5 (5.0-8.5)
[2017-07-10 19:11] LABS: URINE COLOR YELLOW (YELLW/STRAW); WBC, URINE 15-19 /hpf (0-5)
[2017-07-10 19:12] LABS: BACTERIA, URINE MOD /hpf; COMMENT (UR) CULTURE INDICATED; CULTURE IF INDICATED CULTURE INDICATED; SQUAMOUS EPITHELIAL CELL URINE > 8 /hpf (0-5)
[2017-07-10 19:34] VITALS: BP 145/75; PULSE 80; RESP 16; O2SAT 96
[2017-07-10] MEDS ORDERED: BACT800T5 PO (20:15)
--- NOTE | 2017-07-10 20:16 | PD ---
Physical Exam Time Seen by Provider: 20:[address] Ojeda left this patient with me to check the urine and make a disposition , likely discharge. Also, the patient's dialysate is clear. She has had peritonitis once before and she states this is not nearly as bad as a peritonitis in the past and she does not believe this is peritonitis.. Data Data Last Documented VS Vital Signs Date Time Temp Pulse Resp B/P (MAP) Pulse Ox O2 Delivery O2 Flow Rate FiO2 07/10/17 19:34 80 16 145/75 (98) 96 Room Air 07/10/17 16:53 98.6 Orders Orders Complete Blood Count With Diff (07/10/17 17:18) Comprehensive Metabolic Panel (07/10/17 17:18) Lipase (07/10/17 17:18) Iv Access Insert/Monitor (07/10/17:18) Ecg Monitoring (07/10/17 17:18) Oximetry (07/10/17 17:18) Sodium Chloride 0.9% Flush (Ns Flush) (07/10/17 17:30) Prochlorperazine Inj (Compazine Inj) (07/10/17 17:30) Diphenhydramine Inj (Benadryl Inj) (07/10/17 17:30) Hydromorphone Pf Inj (Dilaudid Pf Inj) (07/10/17 17:30) Urinalysis - C+S If Indicated (07/10/17 17:28) Sodium Chlorid 0.9% 500 Ml Inj (Ns 500 M (07/10/17 17:30) Urine Culture (07/10/17 18:45) Labs Laboratory Tests Test 07/10/17 17:40 07/10/17 18:45 White Blood Count 11.4 TH/MM3 Red Blood Count 3.49 MIL/MM3 Hemoglobin 10.7 GM/DL Hematocrit 33.8 % Mean Corpuscular Volume 96.8 FL Mean Corpuscular Hemoglobin 30.7 PG Mean Corpuscular Hemoglobin Concent 31.8 % Red Cell Distribution Width 14.7 % Platelet Count 155 TH/MM3 Mean Platelet Volume 8.9 FL Neutrophils (%) (Auto) 86.7 % Lymphocytes (%) (Auto) 5.9 % Monocytes (%) (Auto) 5.8 % Eosinophils (%) (Auto) 1.2 % Basophils (%) (Auto) 0.4 % Neutrophils # (Auto) 9.9 TH/MM3 Lymphocytes # (Auto) 0.7 TH/MM3 Monocytes # (Auto) 0.7 TH/MM3 Eosinophils # (Auto) 0.1 TH/MM3 Basophils # (Auto) 0.0 TH/MM3 CBC Comment DIFF FINAL Differential Comment Blood Urea Nitrogen 43 MG/DL Creatinine 15.00 MG/DL Random Glucose 112 MG/DL Total Protein 5.9 GM/DL Albumin 3.1 GM/DL Calcium Level 9.3 MG/DL Alkaline Phosphatase 122 U/L Aspartate Amino Transf (AST/SGOT) 9 U/L Alanine Aminotransferase (ALT/SGPT) 15 U/L Total Bilirubin 0.4 MG/DL Sodium Level 129 MEQ/L Potassium Level 3.0 MEQ/L Chloride Level 91 MEQ/L Carbon Dioxide Level 20.3 MEQ/L Anion Gap 18 MEQ/L Estimat Glomerular Filtration Rate 2 ML/MIN Lipase 172 U/L Urine Color YELLOW Urine Turbidity CLOUDY Urine pH 6.5 Urine Specific [place] 1.012 Urine Protein 100 mg/dL Urine Glucose (UA) NEG mg/dL Urine Ketones NEG mg/dL Urine Occult Blood MOD Urine Nitrite NEG Urine Bilirubin NEG Urine Leukocyte Esterase LARGE Urine RBC 4-9 /hpf Urine WBC 15-19 /hpf Urine WBC Clumps FEW Urine Squamous Epithelial Cells > 8 /hpf Urine Bacteria MOD /hpf Microscopic Urinalysis Comment CULTURE INDICATED MDM Medical Record Reviewed: Yes Supervised Visit with VIRGIE: Yes Interpretation(s) The CBC shows white count 11,400 with a hemoglobin of 10.7 and hematocrit of 33.8. The neutrophils are 87%. The complete metabolic profile shows a sodium of 129, potassium 3.0, bicarbonate of 20.3 and anion gap of 18 with BUN of 43 and creatinine of 15 and GFR of 2 and alkaline phosphatase of 122 with total protein 5.9 and albumen of 3.1. The lipase is normal. The urinalysis shows cloudy turbidity, 100 protein, moderate occult blood, large leukocyte esterase with 4-9 red cells in 15-19 white cells and few white cell clumping's and moderate bacteria and culture is indicated. Differential Diagnosis Gastritis, peritonitis, urinary tract infection, colitis, electrolyte disorder, anemia Narrative Course The patient does have anemia of chronic disease. She does have a urinary tract infection and will be given Bactrim DS for this. Referrals: Josh Berumen MD 2 days Additional Instruction: Follow-up with Dr. Russo tomorrow or early next week. The Bactrim is one tablet twice daily for 10 days. Med/Other Pt SpecificInfo: Prescription(s) given Scripts Sulfamethoxazole-Trimethoprim (Bactrim DS) 800-160 Mg Tab 1 TAB PO BID for Infection, #20 TAB 0 Refills Prov: Lupillo Judd MD 07/10/17 Disposition: 01 DISCHARGE HOME Condition: Stable Lupillo Judd MD Jul 10, 2017 20:16
[2017-07-10] MEDS ORDERED: SULFAMETHOXAZOLE-TRIMETHOPRIM DS 800-160 MG TAB PO ONE (20:30)
[2017-07-10 20:32] VITALS: BP 140/70
== END 2017-07-10 20:43 | disposition home or self-care (01) ==
LOC: PHED 16:37
DX: N39.0 Urinary tract infection, site not specified (principal); Q61.3 Polycystic kidney, unspecified; D63.1 Anemia in chronic kidney disease; I12.0 Hypertensive chronic kidney disease with stage 5 chronic kidney disease or end stage renal disease; I48.91 Unspecified atrial fibrillation; E78.00 Pure hypercholesterolemia, unspecified; N18.6 End stage renal disease; Z99.2 Dependence on renal dialysis
CPT/HCPCS: 80053; 81001; 83690; 85025; 87086; 96361; 96374; 96375; 99284; J0780; J1170; J1200; J7040

== ENCOUNTER 2017-07-22 11:23 | Inpatient (IN) | payer MEDICARE ==
[~2017-07-22] VITALS: Ht 165.1 cm; Wt 88.7 kg
[~2017-07-22 11:23] MED LIST changes: +AMLO5TAB2 PO; -ASPI325T27 PO; +BACT800T5 PO; -DICY10CA12 PO; +MAGN400T2 PO; +METO50TA PO; -TRAM50TA PO
[2017-07-22 11:27] VITALS: BP 75/48; PULSE 114; RESP 16; TEMP 97.8
[2017-07-22] MEDS ORDERED: SODIUM CHLOR 0.9% 1000 ML INJ 1,000 ML IV ONE ×3 (11:45→13:30)
--- NOTE | 2017-07-22 11:46 | PD ---
HPI Chief Complaint: GI Complaint Time Seen by Provider: 11:33 Travel History International Travel<30 days: No Contact w/Intl Traveler<30days: No Traveled to known affect area: No History of Present Illness HPI Patient is a 66-year-old female presents emergency department for evaluation of diarrhea over the past month which initially started while she was prepping for lower GI. Patient is end-stage renal disease on peritoneal dialysis at night. She states she just been having some abdominal cramping but states that her a fluid fluid is been normal. Presents to emergency department today because she' s been feeling weak. She seen Dr. Tirado who ordered a C. difficile test but she has not been able to give a stool sample for this. Denies any blood in the stool denies endorse some mild nausea without vomiting. Denies any fevers. PFSH Past Medical History Arthritis: Yes (back and neck off and on- not all the time.) Asthma: No Atrial Fibrillation: Yes Autoimmune Disease: No Blood Disorders: No Anxiety: Yes Depression: Yes Heart Rhythm Problems: Yes Cancer: Yes (left breast biopsy x2, surgery to remove infected clot) Cardiac Catheterization: Yes (2005) Cardiovascular Problems: Yes (htn on meds , a-fib) High Cholesterol: Yes Chemotherapy: No Chest Pain: Yes (intermittent) Congestive Heart Failure: No COPD: No Cerebrovascular Accident: No Diabetes: Yes (Borderline ) Patient Takes Glucophage: No Dialysis: Yes (PERITONEAL DIALYSIS) Diminished Hearing: Yes (Slightly hard of hearing) Endocrine: No Gastrointestinal Disorders: Yes (Hx "Gastric Distress") GERD: No Glaucoma: Yes Gout: Yes Genitourinary: Yes (Polycystic Kidney Disease) Headaches: Yes Hepatitis: No Hiatal Hernia: No Heparin Induced Thrombocytopen: No Hypertension: Yes Immune Disorder: No Implanted Vascular Access Dvce: Yes Kidney Stones: No Medical other: No Musculoskeletal: Yes Neurologic: No Psychiatric: Yes Reproductive: No Respiratory: No Integumentary: Yes (Hx Eczema) Immunizations Current: Yes Migraines: Yes Myocardial Infarction: No Radiation Therapy: Yes (2-3yrs ago - nothing recurrant since) Renal Failure: Yes Seizures: No Sickle Cell Disease: No Sleep Apnea: No Thyroid Disease: No Ulcer: No Tetanus Vaccination: < 5 Years ?: Not Menopausal: Yes : 1 Dilation and Curettage (D&C): Yes Past Surgical History Abdominal Surgery: Yes (gallbladder, Peritoneal dialysis) AICD: No Arteriovenous Shunt: No Body Medical Devices: Peritoneal Port Cardiac Surgery: No Cholecystectomy: Yes Coronary Artery Bypass Graft: No Ear Surgery: No Endocrine Surgery: No Eye Surgery: No Genitourinary Surgery: No Gynecologic Surgery: Yes (D & C >10yrs) Insulin Pump: No Joint Replacement: No Neurologic Surgery: No Oral Surgery: Yes (teeth extraction, root canal, one capped tooth) Pacemaker: No Thoracic Surgery: No Other Surgery: Yes (Insertion Peritoneal Dialysis Catheter, Right abdomen) Family History Family Myocardial Infarction: No Social History Alcohol Use: No Tobacco Use: No Substance Use: No Allergies-Medications (Allergen,Severity, Reaction): Coded Allergies: codeine (Unverified Allergy, Severe, NAUSEA/VOMITING, 07/22/17) morphine (Unverified Allergy, Severe, MIGRAINES, 07/22/17) acetaminophen (Unverified Allergy, Intermediate, ITCHING, 07/22/17) latex (Unverified Allergy, Intermediate, Rash, 07/22/17) oxycodone (Unverified Allergy, Intermediate, ITCHING, 07/22/17) doxycycline (Unverified Adverse Reaction, Severe, GI UPSET, 07/22/17) *MDRO Multi-Drug Resistant Organism (Verified Adverse Reaction, Unknown, 07/22/17) ESBL E.coli (urine) - 02/15/2016 Reported Meds & Prescriptions Reported Meds & Active Scripts Active Reported [Anti For Bladder ] Magnesium Oxide 400 Mg Tab 400 Mg PO DAILY Metoprolol Tartrate 50 Mg Tab 50 Mg PO BID Renvela (Sevelamer Carbonate) 800 Mg Tab 4 Tab PO TID K-Tab (Potassium Chloride) 10 Meq Tab 10 Meq PO BID Alprazolam 0.25 Mg Tab 0.25 Mg PO Q8H PRN Review of Systems Except as stated in HPI: all other systems reviewed are Neg Physical Exam Narrative GENERAL: WD/WN appears ill. SKIN: Warm and dry. Decreased skin turgor. HEAD: Atraumatic. Normocephalic. EYES: Pupils equal and round. No scleral icterus. No injection or drainage. ENT: No nasal bleeding or discharge. Mucous membranes pink and Dry. NECK: Trachea midline. No JVD. CARDIOVASCULAR: Regular rate and rhythm. RESPIRATORY: No accessory muscle use. Clear to auscultation. Breath sounds equal bilaterally. GASTROINTESTINAL: Abdomen soft, non-tender, nondistended. Hepatic and splenic margins not palpable. PD catheter site C/D/I. MUSCULOSKELETAL: Extremities without clubbing, cyanosis, or edema. No obvious deformities. NEUROLOGICAL: Awake and alert. No obvious cranial nerve deficits. Motor grossly within normal limits. Five out of 5 muscle strength in the arms and legs. Normal speech. PSYCHIATRIC: Appropriate mood and affect; insight and judgment normal. Data Data Last Documented VS Vital Signs Date Time Temp Pulse Resp B/P (MAP) Pulse Ox O2 Delivery O2 Flow Rate FiO2 07/22/17 12:16 97.9 80 16 94/67 (76) 92 Nasal Cannula 2.00 Orders Orders Complete Blood Count With Diff (07/22/17 11:37) Comprehensive Metabolic Panel (07/22/17 11:37) Prothrombin Time / Inr (Pt) (07/22/17 11:37) Act Partial Throm Time (Ptt) (07/22/17 11:37) Lactic Acid Sepsis Protocol (07/22/17 11:37) Magnesium (Mg) (07/22/17 11:37) Phosphorus (Po4) (07/22/17 11:37) Lipase (07/22/17 11:37) Ckmb (Isoenzyme) Profile (07/22/17 11:37) Troponin I (07/22/17 11:37) Urinalysis - C+S If Indicated (07/22/17 11:37) Blood Culture (07/22/17 11:37) Blood Glucose (07/22/17 11:37) Ecg Monitoring (07/22/17 11:37) Iv Access Insert/Monitor (07/22/17 11:37) Oximetry (07/22/17 11:37) Oxygen Administration (07/22/17 11:37) Sodium Chlor 0.9% 1000 Ml Inj (Ns 1000 M (07/22/17 11:45) Sodium Chlor 0.9% 1000 Ml Inj (Ns 1000 M (07/22/17 12:45) Electrocardiogram (07/22/17 ) Potassium Chlor 10 Meq Premix (Kcl 10 Me (07/22/17 12:45) Aspirin Chew (Aspirin Chew) (07/22/17 12:45) Ct Abd/Pel W/O Iv Contrast (07/22/17 ) Labs Laboratory Tests Test 07/22/17 11:50 07/22/17 11:55 White Blood Count 17.3 TH/MM3 Red Blood Count 3.31 MIL/MM3 Hemoglobin 10.2 GM/DL Hematocrit 31.5 % Mean Corpuscular Volume 95.2 FL Mean Corpuscular Hemoglobin 30.8 PG Mean Corpuscular Hemoglobin Concent 32.4 % Red Cell Distribution Width 14.7 % Platelet Count 205 TH/MM3 Mean Platelet Volume 8.4 FL Neutrophils (%) (Auto) 85.0 % Lymphocytes (%) (Auto) 6.0 % Monocytes (%) (Auto) 7.1 % Eosinophils (%) (Auto) 1.5 % Basophils (%) (Auto) 0.4 % Neutrophils # (Auto) 14.7 TH/MM3 Lymphocytes # (Auto) 1.0 TH/MM3 Monocytes # (Auto) 1.2 TH/MM3 Eosinophils # (Auto) 0.3 TH/MM3 Basophils # (Auto) 0.1 TH/MM3 CBC Comment DIFF FINAL Differential Comment Prothrombin Time 10.2 SEC Prothromb Time International Ratio 0.9 RATIO Activated Partial Thromboplast Time 22.5 SEC Blood Urea Nitrogen 35 MG/DL Creatinine 12.00 MG/DL Random Glucose 112 MG/DL Total Protein 6.4 GM/DL Albumin 2.7 GM/DL Calcium Level 9.2 MG/DL Phosphorus Level 4.8 MG/DL Magnesium Level 2.4 MG/DL Alkaline Phosphatase 131 U/L Aspartate Amino Transf (AST/SGOT) 11 U/L Alanine Aminotransferase (ALT/SGPT) 23 U/L Total Bilirubin 0.4 MG/DL Sodium Level 134 MEQ/L Potassium Level 2.9 MEQ/L Chloride Level 97 MEQ/L Carbon Dioxide Level 20.3 MEQ/L Anion Gap 17 MEQ/L Estimat Glomerular Filtration Rate 3 ML/MIN Total Creatine Kinase 39 U/L Troponin I 0.43 NG/ML Lipase 110 U/L Lactic Acid Level 2.3 mmol/L MDM Medical Decision Making Medical Screen Exam Complete: Yes Emergency Medical Condition: Yes Differential Diagnosis Dehydration, diarrheal illness, cdiff, electrolyte abnormality, sepsis. Narrative Course Patient roomed in ER, appears ill, dehdyrated. 2L NS given, KCL small dose by IV. Flagyl PO for possibility of cdiff. WBC elevated, CT abdomen without contrast shows no concerning abnormality, free fluid in abdomen likely from PD catheterization. Patient is sepsis criteria and likely from infectious diarrhea. D/W Dr. Chavez for admission who is agreeable. Diagnosis Primary Impression: Sepsis Additional Impressions: Diarrhea Dehydration Admitting Information Admitting Physician Requests: Admit Condition: Stable Félix Keene MD Jul 22, 2017 11:46
[2017-07-22 12:06] LABS: AUTOMATED NEUTROPHIL # 14.7 TH/MM3 (1.8-7.7); BASOPHIL # 0.1 TH/MM3 (0-0.2); BASOPHIL % 0.4 % (0.0-2.0); EOSINOPHIL # 0.3 TH/MM3 (0-0.4); EOSINOPHIL % 1.5 % (0.0-4.0); HEMATOCRIT 31.5 % (35.0-46.0); MEAN CELL VOLUME 95.2 FL (80.0-100.0); MEAN CORPUSCULAR HEMOGLOBIN 30.8 PG (27.0-34.0); MEAN CORPUSCULAR HGB CONC 32.4 % (32.0-36.0); MONO % 7.1 % (0.0-8.0); PLATELET COUNT 205 TH/MM3 (150-450); RED BLOOD COUNT 3.31 MIL/MM3 (4.00-5.30); RED CELL DISTRIBUTION WIDTH 14.7 % (11.6-17.2); WHITE BLOOD COUNT 17.3 TH/MM3 (4.0-11.0)
[2017-07-22 12:09] LABS: HEMO FLAGS DIFF FINAL
[2017-07-22] MEDS ORDERED: [UNRECOGNIZED DRUG - REMARK] (12:13)
[2017-07-22 12:16] VITALS: BP 94/67; PULSE 80; RESP 16; TEMP 97.9; O2SAT 92
[2017-07-22 12:17] LABS: APTT (PATIENT) 22.5 SEC (24.3-30.1); INTERNATIONAL NORMALIZED RATIO 0.9 RATIO; PROTHROMBIN TIME - PATIENT 10.2 SEC (9.8-11.6)
[2017-07-22 12:24] LABS: ALKALINE PHOSPHATASE 131 U/L (45-117); ALT (GPT) 23 U/L (10-53); ANION GAP 17 MEQ/L (5-15); AST (GOT) 11 U/L (15-37); BICARBONATE 20.3 MEQ/L (21.0-32.0); BLOOD UREA NITROGEN 35 MG/DL (7-18); CHLORIDE 97 MEQ/L (98-107); GLOMERULAR FILTRATION RATE 3 ML/MIN (>89); MAGNESIUM 2.4 MG/DL (1.5-2.5); SODIUM (NA) 134 MEQ/L (136-145); TOTAL BILIRUBIN ADULT 0.4 MG/DL (0.2-1.0)
[2017-07-22 12:26] LABS: CREATINE KINASE 39 U/L (26-192)
[2017-07-22 12:27] LABS: POTASSIUM 2.9 MEQ/L (3.5-5.1)
[2017-07-22] MEDS ORDERED: ASPIRIN 81 MG CHEW TAB CHEW ONE ×2 (12:45→13:30)
[2017-07-22] MEDS ORDERED: POTASSIUM CHLOR 10 MEQ PREMIX 100 ML IV ONE ×2 (12:45→13:30)
--- NOTE | 2017-07-22 13:21 | RADRPT ---
EXAM DATE/TIME: 07/22/2017 12:57 [facility] COMPARISON: CT ABDOMEN & PELVIS W/O CONTRAST, July 04, 2017, 17:17. INDICATIONS : Periumbilical pain. Diarrhea x 1 month. ORAL CONTRAST: No oral contrast ingested. RADIATION DOSE: 17.19 CTDIvol (mGy) MEDICAL HISTORY : Irritiable bowel syndrome. Cardiovascular disease Renal failure, chronic.Polycystic renal disease. SURGICAL HISTORY : Cholecystectomy. Peritoneal dialysis catheter. ENCOUNTER: Initial ACUITY: 1 month PAIN SCALE: 6/10 LOCATION: Periumbilical TECHNIQUE: Volumetric scanning of the abdomen and pelvis was performed. Using automated exposure control and ad justment of the mA and/or kV according to patient size, radiation dose was kept as low as reasonably achievable to obtain optimal diagnostic quality images. DICOM format image data is available electro nically for review and comparison. FINDINGS: There is extensive free fluid throughout the abdomen and the pelvis new since the previous study but the patient does have a peritoneal dialysis catheter in place. LOWER LUNGS: The visualized lower lungs are clear. LIVER: Homogeneous density without lesion other than small benign cyst near the falciform ligament. There i s no dilation of the biliary tree. Status post cholecystectomy SPLEEN: Normal size without lesion. PANCREAS: Within normal limits. KIDNEYS: There are innumerable cysts scattered throughout both kidneys with a few calcifications bilaterally. I don't see any definite solid mass or interval change since previous exam. ADRENAL GLANDS: Within normal limits. VASCULAR: There is no aortic aneurysm. BOWEL/MESENTERY: The stomach, small bowel, and colon demonstrate no acute abnormality. There is no free intraperitone al air or fluid. ABDOMINAL WALL: Within normal limits. RETROPERITONEUM: There is no lymphadenopathy. BLADDER: No wall thickening or mass. REPRODUCTIVE: Within normal limits. INGUINAL: There is no lymphadenopathy or hernia. MUSCULOSKELETAL: Arthritic change of both SI joints CONCLUSION: Peritoneal catheter with scattered free fluid throughout the abdomen. 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 Bilateral renal calcifications, unchanged Filemon eTrry MD on July 22, 2017 at 13:15 Board Certified Radiologist. This report was verified electronically.
[2017-07-22] MEDS ORDERED: metroNIDAZOLE 500 MG TAB PO ONE (13:30)
[2017-07-22 13:57] LABS: LACTIC ACID GHOST NOT REPORTABLE
[2017-07-22 14:16] VITALS: BP 106/58; PULSE 78; RESP 16
[2017-07-22] MEDS ORDERED: ACETAMINOPHEN/HYDROcodone 325 MG/5 MG TAB PO ONE (14:45)
[2017-07-22] MEDS ORDERED: MISCELLANEOUS NURSING INFORMATION OTHER ONE (14:45)
[2017-07-22] MEDS: PANTOPRAZOLE SODIUM 40 MG VIAL IV PUSH SCH (15:15)
[2017-07-22] MEDS: SODIUM CHLOR 0.9% 1000 ML INJ 1,000 ML IV SCH (15:15)
[2017-07-22 15:43] VITALS: BP 97/50; PULSE 79; RESP 15; TEMP 96.4; O2SAT 99
--- NOTE | 2017-07-22 15:50 | MH ---
cc: ELIZA ELLISON M.D. DATE OF ADMISSION: 07/22/2017 ADMISSION DIAGNOSIS 1. Dehydration 2. Chronic diarrhea, rule out C-difficile colitis 3. End-stage renal disease on home peritoneal dialysis 4. Atrial fibrillation 5. Mild hypokalemia 6. Hypotension likely secondary to dehydration 7. History of hypertension 8. Polycystic kidney disease. PAST HISTORY 1. C-difficile colitis on more than one occasion. 2. Anxiety. 3. Type 2 diabetes mellitus only on diet therapy. 4. Mild anemia likely of chronic kidney disease. 5. Gastroesophageal reflux disease with recent esophagitis. 6. Gastritis on esophagogastroduodenoscopy on 06/30/2017. 7. Diverticulosis. 8. Cold history of colon polyps. 9. Did not say osteopenia. 10. History of cancer left breast with prior radiation therapy and lumpectomy. PERTINENT HISTORY This is a pleasant 66-year-old white female who however, the last month has had some intermittent abdominal crampy type pain and diarrhea and it is described as soft to loose and watery with no blood or mucus. She has seen her primary day. She has been given some antispasmodic slight dicyclomine and Lomotil in the last month she had an EGD done by her flat surfacer jewel Dr. Norris pacheco on 06/30/2017 that showed gastritis and esophagitis and a colonoscopy on 06/30/1970 and showed moderate second and sigmoid diverticulosis flat polyp. This she and has just been weak, especially in the last few days she has had no nausea, vomiting, no fever. It appears that she was given some Flagyl and vancomycin orally and earlier in the month but she only took it for short period of time I am not currently on and she cut back on her blood pressure medicines and metoprolol amblyopia and had been taking them because her blood pressure is low due to be an week she has fell at least once she denies any chest pain or shortness of breath or cough. She has had urinary tract infections in the past but no current he had dysuria or hematuria in the emergency department she was just slightly hypotensive her potassium was low her white count was mildly elevated her lactic acid was just a little bit 2.3. She has been given normal saline in the emergency department and her blood pressure has improved. She has end-stage renal disease patient for awhile and has been on home peritoneal dialysis each night Medical she is being admitted for and continued monitoring her blood pressure her white count and fluid status. MEDICAL HISTORY She has had some atrial fibrillation on off and on and looks like rate monitor shows a little atrial fib. She had a Holter monitor in December that showed some paroxysmal atrial fibrillation with short atrial runs she is just on metoprolol she was not put on any anticoagulation by her fixing carpenter, Dr. Dupree and did not want to take any according to her because of bruising she has had end-stage renal disease and on peritoneal dialysis and sees Dr. Berumen she has had C diff in 2014 and then in the in hospital in June 2016. Apparently she was supposed to collect a stool for C diff but has not done that he had she has had some colitis in as colitis in the past some she has used Questran for that she has history of hypertension, gout, type 2 diabetes mellitus that is diet controlled since had anxiety osteopenia. 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 She had a 2-D echocardiogram in January of this year that showed an EF of 50-55% with mild left ventricular hypertrophy and mild mitral regurgitation. She denies any thyroid disease, stroke, hyperlipidemia, no heart attack, angina, congestive heart failure, no asthma, chronic obstructive pulmonary disease. As mentioned. She had recent diverticulosis and colon polyps. She has had some esophagitis and gastritis. She has had polycystic kidney disease. PAST SURGICAL HISTORY She had a left breast lumpectomy 2010 and had peritoneal dialysis shunt placement. She has had multiple colonoscopies with the last 01:11 of 06/30/1970 and EGD just done on 06/30/2017 with gastritis and esophagitis. She had a cholecystectomy was done openly with at age 21. She said a D&C allergies to codeine for Percocet morphine cause migraines has probably tacks doxycycline apparently recently cause some GI symptoms. MEDICATIONS 1. Metoprolol 50 mg twice a day. 2. Amlodipine 5 mg a day for blood pressure but she has been off of because of her BP low. 3. She routinely takes K-Tab 10 mEq twice a day. 4. She states she recently had been taking that neither she does take Alprazolam 0.5 mg takes two at night. 5. Magnesium oxide 400 mg a day. She looks like she was given a script for. 6. Pantoprazole 40 mg a day on 07/18/2017 but she did not have that in her with her bilateral medicines that she brought to the ER. 7. She takes Renagel artery and the LAD (sees it is has CVA only M ER carbonate) sees a 100 mg 4 tablets three times a day. She recently was using. 8. Dicyclomine 10 mg for abdominal cramps she is not currently on that she was recently as mentioned given. 9. Flagyl 500 mg t.i.d. and was then given. 10. Vancomycin on with mild 500 mg t.i.d. on 07/07 and apparently it was changed to. 11. Vancomycin 500 mg t.i.d. on 07/10 and she did not have that interim noticed either so not sure how frequency, she took. FAMILY HISTORY Her father at 70 of congestive heart failure. Mother at 72 of congestive heart failure. Chronic obstructive pulmonary disease. Father also had chronic obstructive pulmonary disease, emphysema. SOCIAL HISTORY She is . 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 REVIEW OF SYSTEMS GENERAL: She has just had some weakness, no chills, sweats 8 mL. HEAD, EYES, EARS, NOSE, AND THROAT: No runny nose, sore throat. CARDIOVASCULAR SYSTEM: Denies any chest pain, no shortness of breath. No current palpitations. PULMONARY: No cough, hemoptysis, wheezing. ABDOMEN: Abdomen is had some intermittent crampy pain across the abdomen as mentioned with the diarrhea but no bleeding. GENITOURINARY: No current symptoms. EXTREMITIES: With no increased swelling. SKIN: Without rash. NEUROLOGIC: No headache, focal weakness, sensory loss confusion. PHYSICAL EXAMINATION: IN GENERAL: Obese white female in no distress. Her pulse was originally 114 when she came in the ED now it is down to 78, BP was a low of 75/48 and up to 106/58. She has been afebrile with temperature 97.9. HEAD, EYES, EARS, NOSE, AND THROAT: Tympanic membranes clear. Pupils equal. Sclerae nonicteric. Nose without lesion. Mouth without inflammation or lesion. NECK: Without bruit. No JVD. CARDIOVASCULAR SYSTEM: Heart rhythm seems just slightly irregular her monitor with 10 be as active as if the she was and a.c. thiamine EKG had 12-lead EKG was ordered and pending. PULMONARY: Lungs were clear. ABDOMEN: Soft, just some minimal tenderness around the head Abdomen epigastric region. No rebound or guarding. She has shots in her abdomen for dialysis broke up [place] in her abdomen for dialysis. EXTREMITIES: No edema. Pulses palpated both feet. SKIN: Negative. NEUROLOGIC: Oriented x3. Cranial nerves intact. Motor sensory intact. LABORATORY DATA Her white count was 17.3 with 85% neutrophils, 6% lymphocytes, hemoglobin 10.2 with normal red cell indexes. Platelets were 205,000. Her sodium was 134, potassium 2.9, CO2 is 20.3, BUN 35, creatinine 12 consistent with her end-stage renal disease, glomerular filtration rate was 3, random glucose 112, lactic acid 2.3, Aspartate aminotransferase. ALT normal, alkaline phosphatase 131, troponin was high at 0.43, but I suspect this is reflective of her chronic renal failure, albumin 2.7, lipase 110. CT scan of the abdomen and showed no acute process has evidence of lung normal dominant polycystic kidney disease. No masses. There is a peritoneal catheter in place in the abdomen. ASSESSMENT: As noted. PLAN: We are just going to give her IV fluids tonight. I will put her on some pantoprazole IV for possible gastritis. We will do stool for C diff. See if that comes back positive. Hold her metoprolol and amlodipine which she has not been on any way. We will give her heparin 5000 units Subcu q.12 h for DVT prophylaxis will keep her bed rest until we are certain that she is stable enough to ambulate. We will recheck her CBC, BMP in the morning and a lactic acid. Also on just recheck her troponin later tonight just to make sure does not trend higher, she does not have any cardiac symptoms. Denies any chest pain or shortness of breath. MD PHILLY Shannon/jonathon /3:03 PM /3:25 PM
[2017-07-22 20:00] VITALS: BP 102/62; PULSE 82; RESP 20; TEMP 97; O2SAT 100
[2017-07-22] MEDS ORDERED: POTASSIUM CHLORIDE 10 MEQ CONTROLLED RELEASE TAB PO SCH (21:00)
[2017-07-22] MEDS: HEPARIN SODIUM - SQ 10,000 UNITS/ML VIAL SQ SCH (21:13)
[2017-07-22] MEDS: metroNIDAZOLE 500 MG TAB PO SCH (22:28)
[2017-07-22] MEDS: ACETAMINOPHEN 325 MG TAB PO PRN (22:28)
[2017-07-22] MEDS: ALPRAZolam 0.5 MG TAB PO PRN (22:28)
[2017-07-23] VITALS: BP 100/55; PULSE 82; RESP 20; TEMP 98.2; O2SAT 100
[2017-07-23 02:19] LABS: C. DIFF EPI 027 INVALID (NEGATIVE)
[2017-07-23] MEDS: ACETAMINOPHEN 325 MG TAB PO PRN (03:53)
[2017-07-23] MEDS: SODIUM CHLOR 0.9% 1000 ML INJ 1,000 ML IV SCH ×2 (03:54→13:13)
[2017-07-23 04:00] VITALS: BP 93/55; PULSE 72; RESP 20; TEMP 97.2; O2SAT 100
[2017-07-23] MEDS: metroNIDAZOLE 500 MG TAB PO SCH ×3 (06:22→21:15)
[2017-07-23 06:29] LABS: AUTOMATED NEUTROPHIL # 7.7 TH/MM3 (1.8-7.7); BASOPHIL % 0.3 % (0.0-2.0); EOSINOPHIL # 0.3 TH/MM3 (0-0.4); EOSINOPHIL % 2.8 % (0.0-4.0); HEMATOCRIT 23.7 % (35.0-46.0); HEMO FLAGS DIFF FINAL; LYMPH % 9.1 % (9.0-44.0); LYMPHOCYTE # 0.9 TH/MM3 (1.0-4.8); MEAN CELL VOLUME 95.9 FL (80.0-100.0); MEAN CORPUSCULAR HEMOGLOBIN 31.1 PG (27.0-34.0); MEAN CORPUSCULAR HGB CONC 32.4 % (32.0-36.0); MONO % 7.3 % (0.0-8.0); NEUT % 80.5 % (16.0-70.0); PLATELET COUNT 161 TH/MM3 (150-450); RED BLOOD COUNT 2.47 MIL/MM3 (4.00-5.30); RED CELL DISTRIBUTION WIDTH 14.7 % (11.6-17.2); WHITE BLOOD COUNT 9.6 TH/MM3 (4.0-11.0)
[2017-07-23] MEDS ORDERED: ACETAMINOPHEN/HYDROcodone 325 MG/5 MG TAB PO PRN (07:00)
[2017-07-23 07:08] LABS: BICARBONATE 20.3 MEQ/L (21.0-32.0)
[2017-07-23 07:12] LABS: POTASSIUM 2.9 MEQ/L (3.5-5.1)
[2017-07-23 08:00] VITALS: BP 108/66; PULSE 79; RESP 14; TEMP 96.9; O2SAT 94
--- NOTE | 2017-07-23 08:20 | HHI.PR ---
Subjective Remarks She still has some epigastric discomfort at times but a little better. I started her on Pantoprazole last night. She is complaining that her neck hurts her and it bothers her with movement. She is requesting the pain pill (Gordon) that she was given by the ER physician. I informed her that it is listed she has an allergy to codeine but she stated it just caused nausea and she had no problems with the Gordon that she was given yesterday. No chest pain or shortness of breath. Objective Vitals Vital Signs Date Time Temp Pulse Resp B/P (MAP) Pulse Ox O2 Delivery O2 Flow Rate FiO2 07/23/17 04:00 97.2 72 20 93/55 (68) 100 07/23/17 00:00 98.2 82 20 100/55 (70) 100 07/22/17 20:00 97.0 82 20 102/62 (75) 100 07/22/17 15:43 96.4 79 15 97/50 (66) 99 07/22/17 15:12 07/22/17 14:16 78 16 106/58 (74) Nasal Cannula 2.00 07/22/17 14:15 07/22/17 12:16 97.9 80 16 94/67 (76) 92 Nasal Cannula 2.00 07/22/17 12:09 Nasal Cannula 2.00 07/22/17 11:27 97.8 114 16 75/48 (57) Result Diagram: 07/23/1760407/23/17604 Other Results Laboratory Tests Test 07/22/17 11:50 07/22/17 11:55 07/22/17 14:32 07/22/17 18:38 White Blood Count 17.3 TH/MM3 Red Blood Count 3.31 MIL/MM3 Hemoglobin 10.2 GM/DL Hematocrit 31.5 % Mean Corpuscular Volume 95.2 FL Mean Corpuscular Hemoglobin 30.8 PG Mean Corpuscular Hemoglobin Concent 32.4 % Red Cell Distribution Width 14.7 % Platelet Count 205 TH/MM3 Mean Platelet Volume 8.4 FL Neutrophils (%) (Auto) 85.0 % Lymphocytes (%) (Auto) 6.0 % Monocytes (%) (Auto) 7.1 % Eosinophils (%) (Auto) 1.5 % Basophils (%) (Auto) 0.4 % Neutrophils # (Auto) 14.7 TH/MM3 Lymphocytes # (Auto) 1.0 TH/MM3 Monocytes # (Auto) 1.2 TH/MM3 Eosinophils # (Auto) 0.3 TH/MM3 Basophils # (Auto) 0.1 TH/MM3 CBC Comment DIFF FINAL Differential Comment Prothrombin Time 10.2 SEC Prothromb Time International Ratio 0.9 RATIO Activated Partial Thromboplast Time 22.5 SEC Blood Urea Nitrogen 35 MG/DL Creatinine 12.00 MG/DL Random Glucose 112 MG/DL Total Protein 6.4 GM/DL Albumin 2.7 GM/DL Calcium Level 9.2 MG/DL Phosphorus Level 4.8 MG/DL Magnesium Level 2.4 MG/DL Alkaline Phosphatase 131 U/L Aspartate Amino Transf (AST/SGOT) 11 U/L Alanine Aminotransferase (ALT/SGPT) 23 U/L Total Bilirubin 0.4 MG/DL Sodium Level 134 MEQ/L Potassium Level 2.9 MEQ/L Chloride Level 97 MEQ/L Carbon Dioxide Level 20.3 MEQ/L Anion Gap 17 MEQ/L Estimat Glomerular Filtration Rate 3 ML/MIN Total Creatine Kinase 39 U/L Troponin I 0.43 NG/ML 0.43 NG/ML Lipase 110 U/L Lactic Acid Level 2.3 mmol/L 1.9 mmol/L Test 07/22/17 19:46 07/23/17 06:05 Stool C. difficile Toxin (PCR) INVALID Stl C. difficile Toxin Epiderm 027 INVALID White Blood Count 9.6 TH/MM3 Red Blood Count 2.47 MIL/MM3 Hemoglobin 7.7 GM/DL Hematocrit 23.7 % Mean Corpuscular Volume 95.9 FL Mean Corpuscular Hemoglobin 31.1 PG Mean Corpuscular Hemoglobin Concent 32.4 % Red Cell Distribution Width 14.7 % Platelet Count 161 TH/MM3 Mean Platelet Volume 7.7 FL Neutrophils (%) (Auto) 80.5 % Lymphocytes (%) (Auto) 9.1 % Monocytes (%) (Auto) 7.3 % Eosinophils (%) (Auto) 2.8 % Basophils (%) (Auto) 0.3 % Neutrophils # (Auto) 7.7 TH/MM3 Lymphocytes # (Auto) 0.9 TH/MM3 Monocytes # (Auto) 0.7 TH/MM3 Eosinophils # (Auto) 0.3 TH/MM3 Basophils # (Auto) 0.0 TH/MM3 CBC Comment DIFF FINAL Differential Comment Blood Urea Nitrogen 31 MG/DL Creatinine 11.00 MG/DL Random Glucose 114 MG/DL Calcium Level 8.3 MG/DL Sodium Level 139 MEQ/L Potassium Level 2.9 MEQ/L Chloride Level 103 MEQ/L Carbon Dioxide Level 20.3 MEQ/L Anion Gap 16 MEQ/L Estimat Glomerular Filtration Rate 4 ML/MIN Lactic Acid Level 1.0 mmol/L Imaging Last Impressions Abdomen/Pelvis CT 07/22/17 0000 Signed Impressions: Service Date/Time: Saturday, July 22, 2017 12:57 - CONCLUSION: Peritoneal catheter with scattered free fluid throughout the abdomen. Autosomal dominant polycystic kidney disease without evidence of solid mass. Bilateral renal calcifications, unchanged Filemon Terry MD Objective Remarks Exam: Pleasant female in no distress. HEENT: pupils equal, no scleral icterus, mouth negative Neck: She has slight discomfort with turning of her neck. Heart: RRR Lungs: Clear Abdomen: Soft, minimal epigastric tenderness Extremities: No edema Neuro: Alert, no motor or sensory deficits A/P Assessment and Plan Assessment: --Dehydration--improved --Chronic diarrhea--possible C-difficile colitis --End stage renal disease on home peritoneal dialysis --Paroxysmal atrial fibrillation --Gastritis/GERD --Anemia of chronic renal failure (Hg was 7.7 this morning. It was 10.2 on 07-22-17 but likely higher because of hemoconcentration from her dehydration) --Hypokalemia --Hypotension on admission secondary to dehydration--her BP meds are on hold. She also had not been taking them recently also. --Type 2 diabetes mellitus--diet only --Polycystic kidney disease --Anxiety --Diverticulosis --Hx of colon polyps --Hx of cancer of the left breast with prior lumpectomy and radiation therapy --Osteopenia --Neck pain that appears to be musculoskeletal in origin --Elevated Troponin level that remained stable on recheck and is likely elevated because of chronic end stage renal disease. She had no symptoms of chest pain or shortness of breath. Her EKG was read as possible anterior infarct because of poor R wave progression (they did not have a prior one to compare with but I reviewed a prior EKG done at [facility] and the pattern was stable) Plan: Continue Pantoprazole. Monitor Hg and HCT Give additional potassium today since her level was 2.9. Continue Flagyl po. Consult her rn transport. Continue Gordon for her neck pain as needed. I will cut back her IV fluids also. Continue her peritoneal dialysis. She is on Heparin for DVT prophylaxis Efrem Chavez MD Jul 23, 2017 08:20
[2017-07-23] MEDS: POTASSIUM CHLORIDE 25 MEQ EFFERVESCENT TAB PO SCH ×2 (08:50→20:32)
[2017-07-23] MEDS: MAGNESIUM OXIDE 400 MG TAB PO SCH (08:50)
[2017-07-23] MEDS: HEPARIN SODIUM - SQ 10,000 UNITS/ML VIAL SQ SCH ×2 (08:50→20:35)
[2017-07-23] MEDS: ACETAMINOPHEN/HYDROcodone 325 MG/5 MG TAB PO PRN ×3 (08:50→20:34)
[2017-07-23] MEDS: SEVELAMER CARBONATE 800 MG TAB PO SCH ×3 (09:00→18:05)
--- NOTE | 2017-07-23 10:31 | EKG ---
Date Performed: 07/22/2017 Time Performed: 12:46:41 PTAGE: 66 years EKG: Sinus rhythm MARKED LEFT AXIS DEVIATION POSSIBLE ANTERIOR MYOCARDIAL INFARCTION ABNORMAL ECG INTERPRETATION BASED ON A DEFAULT AGE OF 42 YEARS NO PREVIOUS TRACING DOCTOR: Filemon Dupree Interpretating Date/Time 07/23/2017 10:28:59
[2017-07-23 12:00] VITALS: BP 103/52; PULSE 82; RESP 16; TEMP 97.4; O2SAT 100
[2017-07-23] MEDS: PANTOPRAZOLE SODIUM 40 MG VIAL IV PUSH SCH (14:40)
[2017-07-23 16:00] VITALS: BP 111/63; PULSE 83; RESP 16; TEMP 97.7; O2SAT 100
[2017-07-23 16:41] LABS: HEMATOCRIT 23.4 % (35.0-46.0)
[2017-07-23 16:44] LABS: REVIEW FLAG FINAL
[2017-07-23 20:00] VITALS: BP 129/67; PULSE 92; RESP 20; TEMP 98.8; O2SAT 100
[2017-07-23] MEDS ORDERED: POTASSIUM BICARBONATE 25 MEQ EFFERVESCENT TAB PO ONE (20:00)
--- NOTE | 2017-07-23 20:50 | MB ---
cc: GRAYSON VEGA M.D.,ELIZA Rowe MD DATE OF CONSULTATION: 07/23/2017 REASON FOR CONSULTATION: Abdominal pain, diarrhea, recurrent CHF. REFERRING PHYSICIAN Dr. Eliza Chavez HISTORY OF PRESENT ILLNESS: Ms. Chavez is an unfortunate 66 year-old lady with multiple medical problems. She came to the emergency room with worsening abdominal pain and diarrhea. The patient was having symptoms dating back a month or two ago. She had been evaluated by Dr. Tirado in the office. She underwent upper endoscopy and colonoscopy a few weeks ago. There was suggestion of gastritis, esophagitis, colon polyps along with diverticulosis. She was diagnosed also with C. Difficile. She was placed on Flagyl due to side effects, was changed to vancomycin. The patient started to have worsening diarrhea, cramps. She was having fainting episodes for the last couple of weeks, getting worse lately. She came here for further evaluation and treatment. The patient is on peritoneal dialysis. As per her the peritoneal dialysis fluid looks normal. No signs of infection. She apparently was evaluated in the past also for urinary tract infection and she was given antibiotics and apparently after she developed C. Difficile. PAST MEDICAL HISTORY 1. Atrial fibrillation. 2. Renal insufficiency on peritoneal dialysis. 3. Breast cancer status post lumpectomy. 4. Reflux. 5. Chronic diarrhea recently got worse secondary to C. Diff. 6. High blood pressure. 7. Polycystic kidney disease. 8. Mild anemia. PAST SURGICAL HISTORY 1. Left breast lumpectomy. 2. Peritoneal dialysis. 3. Catheter placement. 4. Endoscopies and colonoscopies. 5. Cholecystectomy. 6. D&C. ALLERGIES: PERCOCET, MORPHINE, DOXYCYCLINE, ACETAMINOPHEN, CODEINE, DOXYCYCLINE, LATEX, MORPHINE, OXYCODONE. MEDICATIONS 1. Metoprolol. 2. Amlodipine. 3. Potassium chloride. 4. Alprazolam. 5. Magnesium oxide. 6. Protonix. 7. Renagel 8. Dicyclomine. 9. Flagyl. 10. Vancomycin. FAMILY HISTORY: CHF, COPD. REVIEW OF SYSTEMS: She denies any fever or chills, weight loss or weight gain. ENT: No alteration in baseline hearing or visual acuity. Pulmonary: Denies any chest pain, shortness of breath. Gastrointestinal: As above. Genitourinary: Denies dysuria, hematuria. Hematologic: Does have history of anemia and no bleeding disorder. Skin: No alteration in baseline skin lesion. Neurologic: No history of TIA or CVA kind of symptoms. CLINICAL EXAMINATION She is sitting in bed in no acute distress. She looks very weak, pale, morbidly obese. HEENT: PERRLA. Pale. Neck: No JVD. No lymphadenopathy Chest: Clear to the auscultation on palpation. Cardiovascular: S1-S2. No murmur. Abdomen: Soft, obese. Bowel sounds are present. Peritoneal dialysis catheter in place, no discharge. PROGRAM DIRECTOR: Awake, alert, oriented x3. No focal signs identified. VITAL SIGNS: Temperature is 96.9, pulse 79, respiratory rate 14, blood pressure 108/66. Saturation 100. Lower extremities: No pedal edema. PROGRAM DIRECTOR: Awake, alert, oriented x3. LABORATORY DATA: Her hemoglobin on admission was 10.2, currently 7.7. Her white count was 17.3, currently 9.6, platelet count 205, currently 161, PT/INR normal. Her potassium is 2.9. BUN 31, creatinine 11. Liver enzymes, AST 11, ALT 23, alkaline phosphatase 131. Albumin 2.7. C. difficile was invalid as the presence of the C. difficile could not be determined. CT of the abdomen and pelvis suggested peritoneal catheter with scattered free fluid throughout the abdomen. Autosomal dominant polycystic kidney disease without evidence of solid mass, bilateral renal calcifications unchanged. IMPRESSION Ms. Chavez is an unfortunate 66-year-old lady with multiple medical problems recently admitted to the hospital with worsening diarrhea and abdominal pain, history of C. Difficile, currently on vancomycin and Flagyl. Abdominal pain unclear etiology at this time, possibly related to C. difficile colitis. Chronic diarrhea, chronically worse due to over imposed C. difficile colitis. Drop in hemoglobin. No indication of active bleed. Await repeat studies at 4 o'clock. Abnormalities secondary to renal insufficiency and diarrhea. RECOMMENDATIONS Await repeat hemoglobin at 4 o'clock. If it is less than 8, transfuse two units of PRBC slowly. Monitor H&H closely. Transfuse to keep hemoglobin more than 8. May consider small bowel follow-through if the hemoglobin continues to be on the lower side. Consider holding magnesium oxide in view of her diarrhea. If the diarrhea is not better, consider ID consultation. I would like to thank Dr. Chavez for referring to us for consultation. Supportive care. Of note, old records reviewed, presence of elevated chromogranin level. Unclear if the patient had octreotide scan done in the past or not. We can definitely repeat that along with gastrin level and VIP level. This workup was also performed in the past. Gastrin level was initially elevated at 770 and then was noted to be within normal limits. VIP level was normal. Random cortisol done in 2013 was normal, glucagon level was slightly elevated at 400. Again all of the above workup was done back in 2013 and 2014. Thank you again. Will continue to follow the patient along with you. Grayson Vega MD BSB/VINNY /2:07 PM /8:25 PM MTDD
[2017-07-23] MEDS: ALPRAZolam 0.5 MG TAB PO PRN (21:15)
[2017-07-23] MEDS ORDERED: NITROGLYCERIN 0.4 MG SL 25 TABS/BTL SL PRN (23:45)
[2017-07-24] VITALS (51 sets, daily range): BP systolic 78–149; BP diastolic 43–78; PULSE 70–150; RESP 11–46; TEMP 97.8–98.6; O2SAT 92–100
[2017-07-24] MEDS ORDERED: DILTIAZEM 125 MG/NS 100 ML IV PRN ×2 (00:15)
[2017-07-24] MEDS ORDERED: DILTIAZEM HCL 25 MG/5 ML (Bolus) IV PUSH PRN (00:15)
[2017-07-24] MEDS ORDERED: AMIODARONE 150 MG/D5W 97 ML BOLUS 10 MINUTES IV ONE ×2 (00:15)
[2017-07-24] MEDS ORDERED: DIGOXIN 0.5 MG/2 ML VIAL IV PUSH ONE (00:15)
[2017-07-24] MEDS: AMIODARONE INJ 450 MG in D5W (EXCEL BAG) INJ 241 ML IV PRN ×2 (00:30→05:12)
[2017-07-24] MEDS: SODIUM CHLOR 0.9% 1000 ML INJ 1,000 ML IV SCH ×2 (01:04→16:31)
[2017-07-24] MEDS: ACETAMINOPHEN/HYDROcodone 325 MG/5 MG TAB PO PRN ×2 (02:22→09:05)
[2017-07-24] MEDS: metroNIDAZOLE 500 MG TAB PO SCH ×3 (05:15→20:38)
[2017-07-24] MEDS: ACETAMINOPHEN 325 MG TAB PO PRN ×2 (05:16→12:49)
--- NOTE | 2017-07-24 07:14 | HHI.PR ---
Subjective Remarks During the night patient was transferred to ICU when [facility] and complained of chest pain. I called her pastry mixer Dr Dupree and he gave her Amiodarone and Digoxin and she converted to sinus rhythm. Her chest pain resolved when her heart rate came under control. She was also given a unit of PRBC's because of her Hg was still 7.7 on repeat yesterday evening. She relates to me that she gets Epogen from her kidney specialist. She was getting it weekly but then only if her Hg dropped below 8.0. She was seen by Dr Vega (gastroenterology) and she still has some slight abdominal discomfort. Objective Vitals Vital Signs Date Time Temp Pulse Resp B/P (MAP) Pulse Ox O2 Delivery O2 Flow Rate FiO2 07/24/17 06:00 78 07/24/17 06:00 78 13 93/56 (68) 100 07/24/17 05:45 98.0 78 14 96/56 100 07/24/17 05:12 78 83/53 07/24/17 05:00 80 16 83/53 (63) 100 07/24/17 04:30 98.2 82 13 78/50 100 07/24/17 04:15 98.1 84 17 78/50 100 07/24/17 04:15 98.0 85 14 81/43 100 07/24/17 04:06 98.6 86 18 81/43 (56) 100 07/24/17 04:00 80 07/24/17 03:28 86 14 98/46 (63) 100 07/24/17 02:28 90 14 101/51 (68) 98 07/24/17 02:00 94 07/24/17 01:11 99 Nasal Cannula 2.00 07/24/17 01:00 132 16 83/51 (62) 96 07/24/17 00:30 131 104/57 07/24/17 00:30 156 104/57 07/24/17 00:21 150 07/24/17 00:21 150 17 104/57 (73) 07/24/17 00:00 98.3 79 20 87/52 (64) 98 07/23/17 20:00 98.8 92 20 129/67 (87) 100 07/23/17 16:00 97.7 83 16 111/63 (79) 100 07/23/17 12:00 97.4 82 16 103/52 (69) 100 07/23/17 08:00 96.9 79 14 108/66 (80) 94 Result Diagram: 07/23/17 1610 07/23/17 1610 Other Results Lab this morning is pending. Imaging Last Impressions Abdomen/Pelvis CT 07/22/17 0000 Signed Impressions: Service Date/Time: Saturday, July 22, 2017 12:57 - CONCLUSION: Peritoneal catheter with scattered free fluid throughout the abdomen. Autosomal dominant polycystic kidney disease without evidence of solid mass. Bilateral renal calcifications, unchanged Filemon Terry MD Objective Remarks Exam: Pleasant female in no distress. HEENT: pupils equal, no scleral icterus, mouth negative Neck: She has slight discomfort with turning of her neck. Heart: RRR (monitor shows sinus also). Had a-fib during the night Lungs: Clear Abdomen: Soft, minimal epigastric tenderness Extremities: No edema Neuro: Alert, no motor or sensory deficits A/P Assessment and Plan Assessment: --Dehydration--improved --Chronic diarrhea--possible C-difficile colitis --End stage renal disease on home peritoneal dialysis --Paroxysmal atrial fibrillation with episode of RVR during the night that was converted back to sinus rhythm with Amiodarone. She had chest pain associated with her rapid heart rate that resolved with rate control. --Gastritis/GERD --Anemia of chronic renal failure--she was given a unit of packed RBC's during the night because her Hg was 7.7. She has required Epogen as an outpatient to keep her Hg above 8.0. --Hypokalemia --Hypotension on admission secondary to dehydration--her BP meds are on hold. She also had not been taking them recently also. --Type 2 diabetes mellitus--diet only --Polycystic kidney disease --Anxiety --Diverticulosis --Hx of colon polyps --Hx of cancer of the left breast with prior lumpectomy and radiation therapy --Osteopenia --Neck pain that appears to be musculoskeletal in origin --Elevated Troponin level on admission and that remained stable on recheck and is likely elevated because of chronic end stage renal disease. She had no symptoms of chest pain or shortness of breath on admission. Her EKG was read as possible anterior infarct because of poor R wave progression (they did not have a prior one to compare with but I reviewed a prior EKG done at [facility] and the pattern was stable). Plan: Continue Pantoprazole. Monitor Hg and HCT Lab today is pending. Continue Flagyl po. Continue her peritoneal dialysis. She is on Heparin for DVT prophylaxis. Cardiology was consulted last night (I discussed her case with Dr Dupree who sees her as an outpatient) Efrem Chavez MD Jul 24, 2017 07:14
[2017-07-24 08:34] LABS: AUTOMATED NEUTROPHIL # 8.5 TH/MM3 (1.8-7.7); BASOPHIL % 0.2 % (0.0-2.0); EOSINOPHIL # 0.2 TH/MM3 (0-0.4); EOSINOPHIL % 2.1 % (0.0-4.0); HEMATOCRIT 27.3 % (35.0-46.0); HEMO FLAGS DIFF FINAL; LYMPH % 7.3 % (9.0-44.0); LYMPHOCYTE # 0.7 TH/MM3 (1.0-4.8); MEAN CORPUSCULAR HEMOGLOBIN 31.2 PG (27.0-34.0); MEAN CORPUSCULAR HGB CONC 33.2 % (32.0-36.0); MONO % 8.1 % (0.0-8.0); NEUT % 82.3 % (16.0-70.0); PLATELET COUNT 150 TH/MM3 (150-450); WHITE BLOOD COUNT 10.2 TH/MM3 (4.0-11.0)
[2017-07-24 08:51] LABS: POTASSIUM 3.5 MEQ/L (3.5-5.1)
[2017-07-24] MEDS: MAGNESIUM OXIDE 400 MG TAB PO SCH (08:56)
[2017-07-24] MEDS: SEVELAMER CARBONATE 800 MG TAB PO SCH ×3 (09:00→18:00)
[2017-07-24] MEDS: POTASSIUM CHLORIDE 25 MEQ EFFERVESCENT TAB PO SCH (09:00)
[2017-07-24] MEDS: HEPARIN SODIUM - SQ 10,000 UNITS/ML VIAL SQ SCH ×2 (09:06→20:38)
--- NOTE | 2017-07-24 09:51 | MB ---
cc: STEPHANIE REVELES DATE OF CONSULTATION 07/24/2017 REASON FOR CONSULTATION Atrial fibrillation HISTORY OF PRESENT ILLNESS This 66-year-old female has a history of atrial fibrillation in addition to renal insufficiency on peritoneal dialysis. She presented to the emergency room with abdominal pain and diarrhea. She was diagnosed with C-difficile, placed on Flagyl. She also performs peritoneal dialysis which has gone well without any issues. Last night she developed atrial fibrillation with rapid ventricular rate. She did have some chest pain and heart rate got up to 130 beats per minute. She was started on a Cardizem drip at a low dose, but her blood pressure limited titration. I started an amiodarone drip and she has now chemically converted back to sinus rhythm, asymptomatic and feeling well. PAST MEDICAL HISTORY 1. Atrial fibrillation 2. Renal insufficiency 3. Peritoneal dialysis 4. Breast cancer, lumpectomy 5. Reflux 6. Chronic diarrhea 7. High blood pressure 8. Polycystic kidney disease ALLERGIES PERCOCET, MORPHINE, DOXYCYCLINE, ACETAMINOPHEN, CODEINE, LATEX. MEDICATIONS AT HOME 1. Metoprolol 2. Amlodipine 3. Potassium 4. Alprazolam 5. Magnesium 6. Protonix 7. Renagel 8. Flagyl 9. Vancomycin FAMILY HISTORY Denies any family history of early coronary artery disease, or sudden cardiac . REVIEW OF SYSTEMS A 12-point review of systems was performed and is negative unless otherwise as noted in the history of present illness. PHYSICAL EXAMINATION VITAL SIGNS: Temperature is 98, pulse is 81, blood pressure 196/54 mmHg. GENERAL: Alert and oriented x3 in no distress. HEENT: Exam shows pupils reactive to light and accommodation. Extraocular movements are intact. NECK: No elevation or jugular venous distension. No thyromegaly or lymphadenopathy. No carotid bruits. LUNGS: Clear to auscultation bilaterally. CARDIOVASCULAR: Regular rate and rhythm without murmurs, rubs or gallops. ABDOMEN: Exam is nontender, nondistended. Good bowel sounds. No hepatosplenomegaly. EXTREMITIES: Shows no clubbing, cyanosis or edema. Good peripheral pulses. NEUROLOGIC: Cranial nerves intact. Motor and sensory grossly intact. ASSESSMENT 1. Atrial fibrillation, rapid ventricular rate. 2. Chronic kidney disease on peritoneal dialysis. 3. C-difficile with diarrhea and abdominal pain. PLAN She is now chemically converted. I will start her on aspirin 325 mg a day. With a peritoneal dialysis and other comorbidities, I am not sure she would be a great anticoagulation candidate for risk of bleeding. I would like to see if we can try to maintain sinus rhythm. I think her development of atrial fibrillation is likely due to increased adrenergic tone. Again given her anemia which is likely secondary to chronic kidney disease, I do not want to initiate her on anticoagulation. Her arrhythmia may have also been exacerbated by her hypokalemia which is being repleted. We will finish off the amiodarone drip which is a 24-hour administration. Starting tomorrow, we will put her on 400 mg a day on oral amiodarone given her blood pressure for now, we will not initiate any beta remedios, although if her blood pressure tolerates, we could consider that moving forward. From a cardiovascular perspective, she is stable. Continue current medical therapy. We will sign off. If there are any further questions, feel free to call. MD CHINA Georges/SHARON /9:31 AM /9:44 AM
[2017-07-24] MEDS: POTASSIUM CHLORIDE 20 MEQ CONTROLLED RELEASE TAB PO SCH ×2 (10:11→20:38)
--- NOTE | 2017-07-24 10:51 | EKG ---
Date Performed: 07/23/2017 Time Performed: 23:50:04 PTAGE: 66 years EKG: ATRIAL FLUTTER/TACHYCARDIA WITH RAPID VENTRICULAR RESPONSE LOW QRS VOLTAGE IN PRECORDIAL LE ADS POSSIBLE ANTERIOR MYOCARDIAL INFARCTION ABNORMAL RHYTHM ECG PREVIOUS TRACING : 07/22/2017 12.46 DOCTOR: Go Harp Interpretating Date/Time 07/24/2017 10:51:25
[2017-07-24] MEDS ORDERED: MAGNESIUM CITRATE SOLN 300 ML BTL PO ONE ×2 (12:00→18:00)
[2017-07-24] MEDS ORDERED: LACTOBACILLUS ACIDOPHILUS 1 GM PACKET PO SCH (13:00)
[2017-07-24] MEDS: PANTOPRAZOLE SODIUM 40 MG VIAL IV PUSH SCH (15:10)
[2017-07-24] MEDS: traMADol HCL 50 MG TAB PO PRN (15:10)
[2017-07-24] MEDS ORDERED: CHLORHEXIDINE GLUCONATE 2 % 1 PACK (2 CLOTHS)(extra cloths) TOPICAL PRN (15:15)
--- NOTE | 2017-07-24 15:33 | HHI.GIFU ---
Subjective Remarks Resting in bed. C/O abdominal cramping/pain. No bm today. States she did not eat because of the pain. (Julieta David) Objective Vitals I&O Vital Signs Date Time Temp Pulse Resp B/P (MAP) Pulse Ox O2 Delivery O2 Flow Rate FiO2 07/24/17 12:01 76 13 95/55 (68) 100 07/24/17 12:00 76 14 100 07/24/17 12:00 74 07/24/17 11:01 74 11 84/47 (59) 100 07/24/17 11:01 74 11 84/47 (59) 100 07/24/17 11:00 74 11 100 07/24/17 10:01 76 11 81/50 (60) 99 07/24/17 10:01 76 11 99 07/24/17 10:00 76 12 99 07/24/17 10:00 79 07/24/17 09:45 78 25 95 07/24/17 09:45 78 25 95 07/24/17 09:30 78 18 97 07/24/17 09:15 80 26 98 07/24/17 09:01 76 18 87/53 (64) 99 07/24/17 09:00 76 11 98 07/24/17 08:45 78 14 96 07/24/17 08:30 76 12 96 07/24/17 08:15 80 15 97 07/24/17 08:01 78 14 80/49 (59) 99 07/24/17 08:00 97.8 77 16 80/49 (59) 100 07/24/17 08:00 78 07/24/17 08:00 78 14 99 07/24/17 07:45 76 12 99 07/24/17 07:30 78 14 100 07/24/17 07:15 76 13 100 07/24/17 07:01 76 14 96/54 (68) 100 07/24/17 07:00 81 07/24/17 07:00 76 13 100 07/24/17 07:00 81 16 96/54 (68) 100 07/24/17 07:00 97.8 07/24/17 06:00 78 07/24/17 06:00 78 13 93/56 (68) 100 07/24/17 05:45 98.0 78 14 96/56 100 07/24/17 05:12 78 83/53 07/24/17 05:00 80 16 83/53 (63) 100 07/24/17 04:30 98.2 82 13 78/50 100 07/24/17 04:15 98.1 84 17 78/50 100 07/24/17 04:15 98.0 85 14 81/43 100 07/24/17 04:06 98.6 86 18 81/43 (56) 100 07/24/17 04:00 80 07/24/17 03:28 86 14 98/46 (63) 100 07/24/17 02:28 90 14 101/51 (68) 98 07/24/17 02:00 94 07/24/17 01:11 99 Nasal Cannula 2.00 07/24/17 01:00 132 16 83/51 (62) 96 07/24/17 00:30 131 104/57 07/24/17 00:30 156 104/57 07/24/17 00:21 150 07/24/17 00:21 150 17 104/57 (73) 07/24/17 00:00 98.3 79 20 87/52 (64) 98 07/23/17 20:00 98.8 92 20 129/67 (87) 100 07/23/17 16:00 97.7 83 16 111/63 (79) 100 I/O 07/23/17 07/23/17 07/23/17 07/24/17 07/24/17 07/24/17 07:00 15:00 23:00 07:00 15:00 23:00 Intake Total 927 ml 947 ml 200 ml 1000 ml Output Total 0 ml Balance 927 ml 947 ml 200 ml 1000 ml Intake Oral 240 ml 222 ml 200 ml IV Total 687 ml 725 ml 700 ml Packed Cells 300 ml Output Urine Total 0 ml # Voids 0 # Bowel Movements 1 2 3 Laboratory Laboratory Tests Test 07/23/17 16:10 07/24/17 08:15 Hemoglobin 7.7 9.1 Hematocrit 23.4 27.3 Potassium Level 3.0 3.5 White Blood Count 10.2 Red Blood Count 2.90 Mean Corpuscular Volume 94.0 Mean Corpuscular Hemoglobin 31.2 Mean Corpuscular Hemoglobin Concent 33.2 Red Cell Distribution Width 16.0 Platelet Count 150 Mean Platelet Volume 7.4 Neutrophils (%) (Auto) 82.3 Lymphocytes (%) (Auto) 7.3 Monocytes (%) (Auto) 8.1 Eosinophils (%) (Auto) 2.1 Basophils (%) (Auto) 0.2 Neutrophils # (Auto) 8.5 Lymphocytes # (Auto) 0.7 Monocytes # (Auto) 0.8 Eosinophils # (Auto) 0.2 Basophils # (Auto) 0.0 CBC Comment DIFF FINAL Differential Comment Blood Urea Nitrogen 33 Creatinine 10.00 Random Glucose 102 Calcium Level 8.6 Sodium Level 137 Chloride Level 103 Carbon Dioxide Level 20.0 Anion Gap 14 Estimat Glomerular Filtration Rate 4 Date/Time Source Procedure Growth Status 07/22/17 11:55 Blood Peripheral Aerobic Blood Culture - Preliminary NO GROWTH IN 2 DAYS Resulted 07/22/17 11:55 Blood Peripheral Anaerobic Blood Culture - Preliminary NO GROWTH IN 2 DAYS Resulted Imaging Last Impressions Abdomen/Pelvis CT 07/22/17 0000 Signed Impressions: Service Date/Time: Saturday, July 22, 2017 12:57 - CONCLUSION: Peritoneal catheter with scattered free fluid throughout the abdomen. Autosomal dominant polycystic kidney disease without evidence of solid mass. Bilateral renal calcifications, unchanged Filemon Terry MD Physical Exam HEENT: Normocephalic; atraumatic; no jaundice. CHEST: CTA CARDIAC: RRR ABDOMEN: Soft, nondistended, nontender; no hepatosplenomegaly; bowel sounds are present in all four quadrants. Peritoneal catheter with drsg d/i EXTREMITIES: Generalized edema. [employer]: No focal deficits; alert and oriented times three. (Julieta DavidP) Assessment and Plan Plan ASSESSMENT: - Abdominal pain and diarrhea with hx C Difficile. CT scan abdomen and pelvis without contrast (07/22/17)---> Peritoneal catheter with scattered free fluid throughout the abdomen. Autosomal dominant polycystic kidney disease without evidence of solid mass. Bilateral renal calcifications, unchanged. Continues to have abdominal pain. Stool fat pending. On Flagyl/Lactinex. Tramadol added - Anemia with drop in Hgb. S/P 1 unit PRBC. 9.09/27.3. SBFT in am - Hx elevated chromogranin level. Gastrin, VIP pending. - P. Afib. Cardiology following. On heparin, amiodarone - ESRD, on PD PLAN: - JING - Cont. Flagyl - Cont. Lactinex - Await fecal fat - Await VIP, Gastrin - SBFT in am - Monitor HH - Transfuse as necessary - Supportive care - FUrther recommendations to follow based on results of above - Pt seen and examined by Dr. Tirado and myself and this note is written on his behalf (Julieta David) Physician Comments Seen and examined with NANDO, felix in progress for anemia and abdominal pain. SBFT ordered. (Bud Tirado MD) Julieta David Jul 24, 2017 15:33 Bud Tirado MD Jul 25, 2017 14:15
[2017-07-24] MEDS: LACTOBACILLUS ACIDOPHILUS TAB PO SCH (17:09)
[2017-07-24] MEDS: BISACODYL EC 5 MG TABEC PO SCH ×2 (17:09→20:37)
[2017-07-24] MEDS: ONDANSETRON ODT 4 MG TAB PO PRN ×2 (17:09→17:26)
[2017-07-24] MEDS: ALPRAZolam 0.5 MG TAB PO PRN (20:37)
[2017-07-25] VITALS (27 sets, daily range): BP systolic 87–136; BP diastolic 49–76; PULSE 74–116; RESP 13–34; TEMP 97.8–98.2; O2SAT 93–99
[2017-07-25] MEDS: traMADol HCL 50 MG TAB PO PRN ×3 (00:06→22:15)
[2017-07-25 00:48] LABS: C. DIFF EPI 027 PRESUMPTIVE NEGATIVE (NEGATIVE)
[2017-07-25] MEDS: SODIUM CHLOR 0.9% 1000 ML INJ 1,000 ML IV SCH ×2 (02:55→18:43)
[2017-07-25] MEDS: AMIODARONE INJ 450 MG in D5W (EXCEL BAG) INJ 241 ML IV PRN (02:56)
[2017-07-25] MEDS: CHLORHEXIDINE GLUCONATE 2 % 1 PACK (2 CLOTHS)(taper/protocol) TOPICAL SCH (02:56)
[2017-07-25] MEDS: metroNIDAZOLE 500 MG TAB PO SCH ×2 (06:03→14:00)
--- NOTE | 2017-07-25 07:23 | HHI.PR ---
Subjective Remarks She still complains of some intermittent epigastric crampy like pain. No nausea or chest pain. No shortness of breath. Objective Vitals Vital Signs Date Time Temp Pulse Resp B/P (MAP) Pulse Ox O2 Delivery O2 Flow Rate FiO2 07/25/17 06:37 98.0 90 20 118/76 (90) 95 07/25/17 06:00 92 07/25/17 04:00 80 07/25/17 04:00 82 34 130/66 (87) 93 07/25/17 03:56 86 34 136/65 (88) 07/25/17 03:11 78 18 112/68 (83) 94 07/25/17 02:56 82 109/67 07/25/17 02:16 116 17 109/67 (81) 07/25/17 02:00 89 07/25/17 01:06 18 07/25/17 01:00 78 13 102/66 (78) 95 07/25/17 00:00 97.8 86 20 100/59 (73) 96 07/25/17 00:00 86 07/24/17 23:08 96 20 146/78 (100) 95 07/24/17 22:00 84 07/24/17 22:00 78 14 146/72 (96) 92 07/24/17 21:04 98.4 84 46 149/68 (95) 07/24/17 20:07 98 21 07/24/17 20:00 88 07/24/17 19:46 76 14 116/54 (74) 93 07/24/17 18:01 72 13 117/53 (74) 99 07/24/17 18:00 75 07/24/17 18:00 72 14 100 07/24/17 17:00 78 18 98 07/24/17 16:00 78 07/24/17 16:00 78 16 99 07/24/17 15:01 74 18 98/58 (71) 100 07/24/17 15:00 74 16 100 07/24/17 14:01 72 14 114/58 (76) 100 07/24/17 14:00 70 14 99 07/24/17 14:00 78 07/24/17 13:01 74 22 106/50 (68) 100 07/24/17 13:00 72 11 95 07/24/17 12:01 76 13 95/55 (68) 100 07/24/17 12:00 76 14 100 07/24/17 12:00 74 07/24/17 11:01 74 11 84/47 (59) 100 07/24/17 11:01 74 11 84/47 (59) 100 07/24/17 11:00 74 11 100 07/24/17 10:01 76 11 81/50 (60) 99 07/24/17 10:01 76 11 99 07/24/17 10:00 76 12 99 07/24/17 10:00 79 07/24/17 09:45 78 25 95 07/24/17 09:45 78 25 95 07/24/17 09:30 78 18 97 07/24/17 09:15 80 26 98 07/24/17 09:01 76 18 87/53 (64) 99 07/24/17 09:00 76 11 98 07/24/17 08:45 78 14 96 07/24/17 08:30 76 12 96 07/24/17 08:15 80 15 97 07/24/17 08:01 78 14 80/49 (59) 99 07/24/17 08:00 97.8 77 16 80/49 (59) 100 07/24/17 08:00 97 Nasal Cannula 2.00 07/24/17 08:00 78 07/24/17 08:00 78 14 99 07/24/17 07:45 76 12 99 07/24/17 07:30 78 14 100 07/24/17 07:15 76 13 100 Result Diagram: 07/24/17 0815 07/24/17 0815 Other Results Lab today still pending. Laboratory Tests Test 07/23/17 08:50 07/23/17 16:10 07/24/17 08:15 07/24/17 15:15 Hemoglobin 7.7 GM/DL 9.1 GM/DL Hematocrit 23.4 % 27.3 % Potassium Level 3.0 MEQ/L 3.5 MEQ/L White Blood Count 10.2 TH/MM3 Red Blood Count 2.90 MIL/MM3 Mean Corpuscular Volume 94.0 FL Mean Corpuscular Hemoglobin 31.2 PG Mean Corpuscular Hemoglobin Concent 33.2 % Red Cell Distribution Width 16.0 % Platelet Count 150 TH/MM3 Mean Platelet Volume 7.4 FL Neutrophils (%) (Auto) 82.3 % Lymphocytes (%) (Auto) 7.3 % Monocytes (%) (Auto) 8.1 % Eosinophils (%) (Auto) 2.1 % Basophils (%) (Auto) 0.2 % Neutrophils # (Auto) 8.5 TH/MM3 Lymphocytes # (Auto) 0.7 TH/MM3 Monocytes # (Auto) 0.8 TH/MM3 Eosinophils # (Auto) 0.2 TH/MM3 Basophils # (Auto) 0.0 TH/MM3 CBC Comment DIFF FINAL Differential Comment Blood Urea Nitrogen 33 MG/DL Creatinine 10.00 MG/DL Random Glucose 102 MG/DL Calcium Level 8.6 MG/DL Sodium Level 137 MEQ/L Chloride Level 103 MEQ/L Carbon Dioxide Level 20.0 MEQ/L Anion Gap 14 MEQ/L Estimat Glomerular Filtration Rate 4 ML/MIN Nasal Screen MRSA (PCR) MRSA NOT DETECTED Test 07/24/17 17:17 Stool C. difficile Toxin (PCR) NEGATIVE Stl C. difficile Toxin Epiderm 027 PRESUMPTIVE NEGATIVE Imaging Last Impressions Abdomen/Pelvis CT 07/22/17 0000 Signed Impressions: Service Date/Time: Saturday, July 22, 2017 12:57 - CONCLUSION: Peritoneal catheter with scattered free fluid throughout the abdomen. Autosomal dominant polycystic kidney disease without evidence of solid mass. Bilateral renal calcifications, unchanged Filemon Terry MD Objective Remarks Exam: Pleasant female in no distress. HEENT: pupils equal, no scleral icterus, mouth negative Neck: No JVD Heart: Irregular irregular rhythm. (She is back in a-fib on the monitor but her rate is controlled. Lungs: Clear Abdomen: Soft, minimal epigastric tenderness, no guarding or rebound Extremities: No edema Neuro: Alert, no motor or sensory deficits A/P Assessment and Plan Assessment: --Dehydration--resolved --Chronic diarrhea with hx of C-difficile colitis. Her C. difficile toxin has come back negative --Persistent mid abdominal pain-- ? etiology --End stage renal disease on home peritoneal dialysis --Paroxysmal atrial fibrillation/atrial fibrillation: She has been in and out of sinus rhythm and had a-fib with RVR the night before last and was put on Amiodarone and converted to sinus rhythm. Now back in a-fib but her rate is controlled. --Gastritis/GERD --Anemia of chronic renal failure--she was given a unit of packed RBC's the night before last because her Hg was 7.7. She has required Epogen as an outpatient to keep her Hg above 8.0. Her Hg was 9.1 yesterday. Lab today is pending. --Hypokalemia --Hypotension on admission secondary to dehydration--her BP meds are on hold. She also had not been taking them recently. --Type 2 diabetes mellitus--diet only --Polycystic kidney disease --Anxiety --Diverticulosis --Hx of colon polyps --Hx of cancer of the left breast with prior lumpectomy and radiation therapy --Osteopenia --Neck pain that appears to be musculoskeletal in origin --Elevated Troponin level on admission and that remained stable on recheck and is likely elevated because of chronic end stage renal disease. She had no symptoms of chest pain or shortness of breath on admission. Her EKG was read as possible anterior infarct because of poor R wave progression (they did not have a prior one to compare with but I reviewed a prior EKG done at [facility] and the pattern was stable). Plan: Continue Pantoprazole. Monitor Hg and HCT Lab today is pending. I will let GI decide if she still needs Flagyl or not since her C. difficile toxin is negative. Continue her peritoneal dialysis. Continue Amiodarone. Cardiology put her on ASA 325mg daily for anticoagulation for her a-fib. She is scheduled for a small bowel series today. Efrem Chavez MD Jul 25, 2017 07:23
--- NOTE | 2017-07-25 08:46 | HHI.GIFU ---
Subjective Remarks Resting in bed. Continues to have abdominal discomfort. Had bowel prep yesterday for sbft. (Julieta David) Objective Vitals I&O Vital Signs Date Time Temp Pulse Resp B/P (MAP) Pulse Ox O2 Delivery O2 Flow Rate FiO2 07/25/17 08:00 86 07/25/17 06:37 98.0 90 20 118/76 (90) 95 07/25/17 06:00 92 07/25/17 04:00 80 07/25/17 04:00 82 34 130/66 (87) 93 07/25/17 03:56 86 34 136/65 (88) 07/25/17 03:11 78 18 112/68 (83) 94 07/25/17 02:56 82 109/67 07/25/17 02:16 116 17 109/67 (81) 07/25/17 02:00 89 07/25/17 01:06 18 07/25/17 01:00 78 13 102/66 (78) 95 07/25/17 00:00 97.8 86 20 100/59 (73) 96 07/25/17 00:00 86 07/24/17 23:08 96 20 146/78 (100) 95 07/24/17 22:00 84 07/24/17 22:00 78 14 146/72 (96) 92 07/24/17 21:04 98.4 84 46 149/68 (95) 07/24/17 20:07 98 21 07/24/17 20:00 88 07/24/17 19:46 76 14 116/54 (74) 93 07/24/17 18:01 72 13 117/53 (74) 99 07/24/17 18:00 75 07/24/17 18:00 72 14 100 07/24/17 17:00 78 18 98 07/24/17 16:00 78 07/24/17 16:00 78 16 99 07/24/17 15:01 74 18 98/58 (71) 100 07/24/17 15:00 74 16 100 07/24/17 14:01 72 14 114/58 (76) 100 07/24/17 14:00 70 14 99 07/24/17 14:00 78 07/24/17 13:01 74 22 106/50 (68) 100 07/24/17 13:00 72 11 95 07/24/17 12:01 76 13 95/55 (68) 100 07/24/17 12:00 76 14 100 07/24/17 12:00 74 07/24/17 11:01 74 11 84/47 (59) 100 07/24/17 11:01 74 11 84/47 (59) 100 07/24/17 11:00 74 11 100 07/24/17 10:01 76 11 81/50 (60) 99 07/24/17 10:01 76 11 99 07/24/17 10:00 76 12 99 07/24/17 10:00 79 07/24/17 09:45 78 25 95 07/24/17 09:45 78 25 95 07/24/17 09:30 78 18 97 07/24/17 09:15 80 26 98 07/24/17 09:01 76 18 87/53 (64) 99 07/24/17 09:00 76 11 98 07/24/17 08:45 78 14 96 I/O 07/24/17 07/24/17 07/24/17 07/25/17 07/25/17 07/25/17 07:00 15:00 23:00 07:00 15:00 23:00 Intake Total 1000 ml 1084 ml 250 ml Output Total 0 ml Balance 1000 ml 1084 ml 250 ml IV Total 700 ml 1084 ml 250 ml Packed Cells 300 ml Output Urine Total 0 ml # Bowel Movements 1 10 Laboratory Laboratory Tests Test 07/24/17 15:15 07/24/17 17:17 Nasal Screen MRSA (PCR) MRSA NOT DETECTED Stool C. difficile Toxin (PCR) NEGATIVE Stl C. difficile Toxin Epiderm 027 PRESUMPTIVE NEGATIVE Date/Time Source Procedure Growth Status 07/22/17 11:55 Blood Peripheral Aerobic Blood Culture - Preliminary NO GROWTH IN 2 DAYS Resulted 07/22/17 11:55 Blood Peripheral Anaerobic Blood Culture - Preliminary NO GROWTH IN 2 DAYS Resulted Imaging Last Impressions Abdomen/Pelvis CT 07/22/17 0000 Signed Impressions: Service Date/Time: Saturday, July 22, 2017 12:57 - CONCLUSION: Peritoneal catheter with scattered free fluid throughout the abdomen. Autosomal dominant polycystic kidney disease without evidence of solid mass. Bilateral renal calcifications, unchanged Filemon Terry MD Physical Exam HEENT: Normocephalic; atraumatic; no jaundice. CHEST: CTA CARDIAC: RRR ABDOMEN: Soft, nondistended, nontender; no hepatosplenomegaly; bowel sounds are present in all four quadrants. Peritoneal catheter with drsg d/i EXTREMITIES: Generalized edema. [employer]: No focal deficits; alert and oriented times three. (Julieta David) Assessment and Plan Plan ASSESSMENT: - Abdominal pain and diarrhea with hx C Difficile. CT scan abdomen and pelvis without contrast (07/22/17)---> Peritoneal catheter with scattered free fluid throughout the abdomen. Autosomal dominant polycystic kidney disease without evidence of solid mass. Bilateral renal calcifications, unchanged. Continues to have abdominal pain. Stool fat pending. CDiff negative. On Flagyl/Lactinex. Tramadol added yesterday, but no improvement in pain. Will give trial of bentyl. - Anemia with drop in Hgb. S/P 1 unit PRBC. HH Stable. SBFT in am - Hx elevated chromogranin level. Gastrin, VIP pending. - P. Afib. Cardiology following. Now SR. On heparin, amiodarone - ESRD, on PD PLAN: - JING - Cont. Flagyl - Cont. Lactinex - Trial of bentyl - Await fecal fat - Await VIP, Gastrin - SBFT - Monitor HH - Transfuse as necessary - Supportive care - FUrther recommendations to follow based on results of above - Pt seen and examined by Dr. Tirado and myself and this note is written on his behalf (Julieta David) Physician Comments Seen and examined with NANDO, still with abdominal pain, CT sbft -ve. Fuentes in progress. DC flagyl. (Bud Tirado MD) Julieta David Jul 25, 2017 08:46 Bud Tirado MD Jul 25, 2017 14:17
[2017-07-25] MEDS: ASPIRIN EC 325 MG TABEC PO SCH (08:55)
[2017-07-25] MEDS: HEPARIN SODIUM - SQ 10,000 UNITS/ML VIAL SQ SCH ×2 (08:55→22:14)
[2017-07-25] MEDS: LACTOBACILLUS ACIDOPHILUS TAB PO SCH ×3 (08:55→18:37)
[2017-07-25] MEDS: AMIODARONE 200 MG TAB PO SCH (08:55)
[2017-07-25] MEDS: DICYCLOMINE HCL 20 MG TAB PO SCH ×3 (09:43→18:37)
--- NOTE | 2017-07-25 13:07 | RADRPT ---
EXAM DATE/TIME: 07/25/2017 08:40 [place] COMPARISON: No previous studies available for comparison. INDICATIONS : Anemia FLUORO TIME: ? minutes IMAGE COUNT: ? CONTRAST: Entero Vu 24% Barium Sulfate (24% w/v, 20% w/w) IMAGING TIME(S): 15 min, 30 min, 45 min, 1 hr, 1.5 hrs, 2.5 hrs MEDICAL HISTORY : Irritable bowel syndrome. Cardiovascular disease. Renal failure, chronic. Polycystic renal diseas e SURGICAL HISTORY : Cholecystectomy. Peritoneal dialysis catheter ENCOUNTER: Subsequent ACUITY: 1 month PAIN SCORE: 6/10 LOCATION: Abdomen FINDINGS: The study was performed portably due to the ICU location Preliminary film is unremarkable. The stomach is grossly unremarkable. Examination of the small bowel demonstrates normal mucosal pattern involving the jejunum and ileum. There is no evidence of mass or obstruction. No intraluminal filling defects are identified. Small bowel transit time is normal at 120 minutes. Multiple spot images of the abdomen and terminal ileum d emonstrates no abnormality. CONCLUSION: Unremarkable small bowel examination. Exam was performed portably , the small bowel transit time is 2 hours without evidence of fold thickening or obstruction. Filemon Terry MD on July 25, 2017 at 13:04 Board Certified Radiologist. This report was verified electronically.
--- NOTE | 2017-07-25 13:11 | EKG ---
Date Performed: 07/24/2017 Time Performed: 16:19:54 PTAGE: 66 years EKG: Sinus rhythm MARKED LEFT AXIS DEVIATION POSSIBLE ANTERIOR MYOCARDIAL INFARCTION ABNORMAL ECG Compared to PREVIOUS TRACING , sinus rhythm replaces atrial flutter, otherwise largely unchanged. PRE VIOUS TRACIN07/23/2017 23.50 DOCTOR: Efrem Stubbs Interpretating Date/Time 07/25/2017 13:10:20
[2017-07-25 14:11] LABS: AUTOMATED NEUTROPHIL # 11.4 TH/MM3 (1.8-7.7); BASOPHIL # 0.1 TH/MM3 (0-0.2); BASOPHIL % 1.1 % (0.0-2.0); EOSINOPHIL # 0.2 TH/MM3 (0-0.4); EOSINOPHIL % 1.7 % (0.0-4.0); HEMATOCRIT 28.8 % (35.0-46.0); LYMPH % 6.6 % (9.0-44.0); LYMPHOCYTE # 0.9 TH/MM3 (1.0-4.8); MEAN CELL VOLUME 93.4 FL (80.0-100.0); MEAN CORPUSCULAR HEMOGLOBIN 30.9 PG (27.0-34.0); MEAN CORPUSCULAR HGB CONC 33.1 % (32.0-36.0); MONO % 6.7 % (0.0-8.0); NEUT % 83.9 % (16.0-70.0); PLATELET COUNT 162 TH/MM3 (150-450); RED BLOOD COUNT 3.08 MIL/MM3 (4.00-5.30); WHITE BLOOD COUNT 13.5 TH/MM3 (4.0-11.0)
[2017-07-25 14:12] LABS: HEMO FLAGS DIFF FINAL
[2017-07-25 14:24] LABS: POTASSIUM 3.4 MEQ/L (3.5-5.1)
[2017-07-25 14:28] LABS: BICARBONATE 20.5 MEQ/L (21.0-32.0)
[2017-07-25] MEDS: SEVELAMER CARBONATE 800 MG TAB PO SCH ×3 (14:59→18:00)
[2017-07-25] MEDS: MAGNESIUM OXIDE 400 MG TAB PO SCH (15:00)
[2017-07-25] MEDS: POTASSIUM CHLORIDE 20 MEQ CONTROLLED RELEASE TAB PO SCH ×2 (15:00→22:15)
[2017-07-25] MEDS: PANTOPRAZOLE SODIUM 40 MG VIAL IV PUSH SCH (18:37)
[2017-07-25] MEDS: ALPRAZolam 0.5 MG TAB PO PRN (22:15)
[2017-07-26] VITALS (24 sets, daily range): BP systolic 71–139; BP diastolic 42–62; PULSE 74–118; RESP 12–34; TEMP 98.2–98.7; O2SAT 95–100
[2017-07-26] MEDS: CHLORHEXIDINE GLUCONATE 2 % 1 PACK (2 CLOTHS)(taper/protocol) TOPICAL SCH (01:17)
[2017-07-26] MEDS: SODIUM CHLOR 0.9% 1000 ML INJ 1,000 ML IV SCH ×2 (06:26→16:42)
[2017-07-26 07:03] LABS: AUTOMATED NEUTROPHIL # 8.5 TH/MM3 (1.8-7.7); BASOPHIL % 0.3 % (0.0-2.0); EOSINOPHIL # 0.3 TH/MM3 (0-0.4); EOSINOPHIL % 2.5 % (0.0-4.0); HEMATOCRIT 27.7 % (35.0-46.0); HEMO FLAGS DIFF FINAL; LYMPH % 7.2 % (9.0-44.0); LYMPHOCYTE # 0.7 TH/MM3 (1.0-4.8); MEAN CELL VOLUME 94.3 FL (80.0-100.0); MEAN CORPUSCULAR HEMOGLOBIN 31.4 PG (27.0-34.0); MEAN CORPUSCULAR HGB CONC 33.2 % (32.0-36.0); PLATELET COUNT 145 TH/MM3 (150-450); RED BLOOD COUNT 2.94 MIL/MM3 (4.00-5.30); RED CELL DISTRIBUTION WIDTH 15.7 % (11.6-17.2); WHITE BLOOD COUNT 10.2 TH/MM3 (4.0-11.0)
[2017-07-26 07:10] LABS: POTASSIUM 3.3 MEQ/L (3.5-5.1)
[2017-07-26 07:13] LABS: BICARBONATE 21.6 MEQ/L (21.0-32.0)
--- NOTE | 2017-07-26 07:18 | HHI.PR ---
Subjective Remarks I feel better. No diarrhea. Abdominal pain is much better. Slept well last night. Objective Vitals Vital Signs Date Time Temp Pulse Resp B/P (MAP) Pulse Ox O2 Delivery O2 Flow Rate FiO2 07/26/17 06:00 74 07/26/17 06:00 74 13 106/49 (68) 07/26/17 05:00 76 14 71/42 (52) 07/26/17 04:00 98.2 80 13 84/50 (61) 07/26/17 04:00 80 07/26/17 03:08 86 21 81/47 (58) 07/26/17 03:00 82 12 77/49 (58) 07/26/17 03:00 83 07/26/17 02:29 113 07/26/17 02:03 113 14 95/46 (62) 07/26/17 01:06 115 15 91/53 (66) 07/26/17 00:00 118 07/26/17 00:00 98.4 111 13 93/51 (65) 95 07/25/17 23:00 116 15 109/71 (84) 07/25/17 23:00 116 07/25/17 22:00 80 07/25/17 22:00 80 15 110/51 (70) 07/25/17 21:30 86 21 106/56 (73) 07/25/17 20:40 99 21 07/25/17 20:00 98.0 82 20 114/50 (71) 99 07/25/17 20:00 79 07/25/17 19:00 76 19 99/60 (73) 07/25/17 18:00 78 15 108/55 (72) 97 07/25/17 18:00 78 07/25/17 17:00 76 13 95/49 (64) 99 07/25/17 16:00 98.2 82 31 90/53 (65) 98 07/25/17 16:00 80 07/25/17 15:00 78 21 109/66 (80) 99 07/25/17 14:16 74 07/25/17 14:00 78 07/25/17 14:00 74 16 94/52 (66) 07/25/17 12:00 78 07/25/17 12:00 98.0 98 23 122/65 (84) 07/25/17 11:32 96 21 07/25/17 10:00 80 113/66 (82) 07/25/17 10:00 80 07/25/17 09:20 76 101/53 07/25/17 09:00 78 21 87/53 (64) 98 07/25/17 08:00 86 07/25/17 08:00 86 23 101/53 (69) Result Diagram: 07/26/17 0620 07/26/17 0620 Other Results Laboratory Tests Test 07/24/17 08:15 07/24/17 15:15 07/24/17 17:17 07/25/17 13:58 White Blood Count 10.2 TH/MM3 13.5 TH/MM3 Red Blood Count 2.90 MIL/MM3 3.08 MIL/MM3 Hemoglobin 9.1 GM/DL 9.5 GM/DL Hematocrit 27.3 % 28.8 % Mean Corpuscular Volume 94.0 FL 93.4 FL Mean Corpuscular Hemoglobin 31.2 PG 30.9 PG Mean Corpuscular Hemoglobin Concent 33.2 % 33.1 % Red Cell Distribution Width 16.0 % 16.0 % Platelet Count 150 TH/MM3 162 TH/MM3 Mean Platelet Volume 7.4 FL 7.4 FL Neutrophils (%) (Auto) 82.3 % 83.9 % Lymphocytes (%) (Auto) 7.3 % 6.6 % Monocytes (%) (Auto) 8.1 % 6.7 % Eosinophils (%) (Auto) 2.1 % 1.7 % Basophils (%) (Auto) 0.2 % 1.1 % Neutrophils # (Auto) 8.5 TH/MM3 11.4 TH/MM3 Lymphocytes # (Auto) 0.7 TH/MM3 0.9 TH/MM3 Monocytes # (Auto) 0.8 TH/MM3 0.9 TH/MM3 Eosinophils # (Auto) 0.2 TH/MM3 0.2 TH/MM3 Basophils # (Auto) 0.0 TH/MM3 0.1 TH/MM3 CBC Comment DIFF FINAL DIFF FINAL Differential Comment Blood Urea Nitrogen 33 MG/DL 31 MG/DL Creatinine 10.00 MG/DL 9.30 MG/DL Random Glucose 102 MG/DL 92 MG/DL Calcium Level 8.6 MG/DL 9.2 MG/DL Sodium Level 137 MEQ/L 136 MEQ/L Potassium Level 3.5 MEQ/L 3.4 MEQ/L Chloride Level 103 MEQ/L 100 MEQ/L Carbon Dioxide Level 20.0 MEQ/L 20.5 MEQ/L Anion Gap 14 MEQ/L 16 MEQ/L Estimat Glomerular Filtration Rate 4 ML/MIN 4 ML/MIN Nasal Screen MRSA (PCR) MRSA NOT DETECTED Stool C. difficile Toxin (PCR) NEGATIVE Stl C. difficile Toxin Epiderm 027 PRESUMPTIVE NEGATIVE Test 07/26/17 06:20 White Blood Count 10.2 TH/MM3 Red Blood Count 2.94 MIL/MM3 Hemoglobin 9.2 GM/DL Hematocrit 27.7 % Mean Corpuscular Volume 94.3 FL Mean Corpuscular Hemoglobin 31.4 PG Mean Corpuscular Hemoglobin Concent 33.2 % Red Cell Distribution Width 15.7 % Platelet Count 145 TH/MM3 Mean Platelet Volume 7.4 FL Neutrophils (%) (Auto) 83.0 % Lymphocytes (%) (Auto) 7.2 % Monocytes (%) (Auto) 7.0 % Eosinophils (%) (Auto) 2.5 % Basophils (%) (Auto) 0.3 % Neutrophils # (Auto) 8.5 TH/MM3 Lymphocytes # (Auto) 0.7 TH/MM3 Monocytes # (Auto) 0.7 TH/MM3 Eosinophils # (Auto) 0.3 TH/MM3 Basophils # (Auto) 0.0 TH/MM3 CBC Comment DIFF FINAL Differential Comment Sodium Level 136 MEQ/L Potassium Level 3.3 MEQ/L Chloride Level 102 MEQ/L Imaging Last Impressions Small Bowel X-Ray 07/25/17 0000 Signed Impressions: Service Date/Time: Tuesday, July 25, 2017 08:40 - CONCLUSION: Unremarkable small bowel examination. Exam was performed portably , the small bowel transit time is 2 hours without evidence of fold thickening or obstruction. Filemon Terry MD Abdomen/Pelvis CT 07/22/17 0000 Signed Impressions: Service Date/Time: Saturday, July 22, 2017 12:57 - CONCLUSION: Peritoneal catheter with scattered free fluid throughout the abdomen. Autosomal dominant polycystic kidney disease without evidence of solid mass. Bilateral renal calcifications, unchanged Filemon Terry MD Last Impressions Abdomen/Pelvis CT 07/22/17 0000 Signed Impressions: Service Date/Time: Saturday, July 22, 2017 12:57 - CONCLUSION: Peritoneal catheter with scattered free fluid throughout the abdomen. Autosomal dominant polycystic kidney disease without evidence of solid mass. Bilateral renal calcifications, unchanged Filemon Terry MD Objective Remarks Exam: Pleasant female in no distress. HEENT: pupils equal, no scleral icterus, mouth negative Neck: No JVD Heart: RRR (back in sinus rhythm on monitor today) Lungs: Clear Abdomen: Soft, very minimal epigastric tenderness, no guarding or rebound Extremities: No edema Neuro: Alert, no motor or sensory deficits A/P Assessment and Plan Assessment: --Dehydration--resolved --Chronic diarrhea with hx of C-difficile colitis. Her C. difficile toxin has come back negative. Diarrhea has resolved --Mid abdominal pain which has improved-- ? etiology (small bowel series negative) --End stage renal disease on home peritoneal dialysis --Paroxysmal atrial fibrillation/atrial fibrillation: She has been in and out of sinus rhythm and had a-fib with RVR the night before last and was put on Amiodarone and converted to sinus rhythm. Was back in a-fib yesterday morning but now is back in sinus rhythm. --Gastritis/GERD --Anemia of chronic renal failure--she was given a unit of packed RBC's the night before last because her Hg was 7.7. She has required Epogen as an outpatient to keep her Hg above 8.0. --Hypokalemia --Hypotension on admission secondary to dehydration--her BP meds are on hold. She also had not been taking them recently. --Type 2 diabetes mellitus--diet only --Polycystic kidney disease --Anxiety --Diverticulosis --Hx of colon polyps --Hx of cancer of the left breast with prior lumpectomy and radiation therapy --Osteopenia --Neck pain that appears to be musculoskeletal in origin and better --Elevated Troponin level on admission and that remained stable on recheck and is likely elevated because of chronic end stage renal disease. She had no symptoms of chest pain or shortness of breath on admission. Her EKG was read as possible anterior infarct because of poor R wave progression (they did not have a prior one to compare with but I reviewed a prior EKG done at [facility] and the pattern was stable). Plan: Continue Pantoprazole. Physical therapy consult and get her out of bed and ambulate her. Additional potassium today. Continue her peritoneal dialysis. Continue Amiodarone. Cardiology put her on ASA 325mg daily for anticoagulation for her a-fib. Efrem Chavez MD Jul 26, 2017 07:18
[2017-07-26] MEDS: ASPIRIN EC 325 MG TABEC PO SCH (08:20)
[2017-07-26] MEDS: AMIODARONE 200 MG TAB PO SCH (08:20)
[2017-07-26] MEDS: LACTOBACILLUS ACIDOPHILUS TAB PO SCH ×3 (08:21→18:12)
[2017-07-26] MEDS: POTASSIUM CHLORIDE 20 MEQ CONTROLLED RELEASE TAB PO SCH ×2 (08:21→19:50)
[2017-07-26] MEDS: HEPARIN SODIUM - SQ 10,000 UNITS/ML VIAL SQ SCH ×2 (08:21→19:51)
[2017-07-26] MEDS: DICYCLOMINE HCL 20 MG TAB PO SCH ×3 (08:21→18:12)
[2017-07-26] MEDS: SEVELAMER CARBONATE 800 MG TAB PO SCH ×3 (08:21→18:16)
[2017-07-26] MEDS: MAGNESIUM OXIDE 400 MG TAB PO SCH (08:21)
[2017-07-26 14:55] LABS: FECAL FAT % FAT 20 % fat (< 20)
[2017-07-26] MEDS: PANTOPRAZOLE SOD 40 MG DELAYED RELEASE TAB PO SCH (16:42)
[2017-07-26] MEDS: traMADol HCL 50 MG TAB PO PRN (19:50)
[2017-07-26 21:32] LABS: BLOOD, URINE LARGE (NEG); GLUCOSE,URINE NEG (NEG); KETONE, URINE NEG (NEG); NITRITE,URINE NEG (NEG); URINE COLOR YELLOW (YELLW/STRAW)
[2017-07-26 21:33] LABS: BACTERIA, URINE FEW /hpf; COMMENT (UR) CATH-CULTURE IND; CULTURE IF INDICATED CATH CULTURE IND
[2017-07-26] MEDS: ALPRAZolam 0.5 MG TAB PO PRN (22:17)
[2017-07-27] VITALS (8 sets, daily range): BP systolic 90–117; BP diastolic 55–63; PULSE 78–82; RESP 12–21; TEMP 98–98.3; O2SAT 96–98
[2017-07-27] MEDS: CHLORHEXIDINE GLUCONATE 2 % 1 PACK (2 CLOTHS)(taper/protocol) TOPICAL SCH (03:33)
[2017-07-27] MEDS: SODIUM CHLOR 0.9% 1000 ML INJ 1,000 ML IV SCH (03:33)
[2017-07-27 03:50] LABS: IGA SERUM 62 mg/dL (81-463)
[2017-07-27] MEDS: LACTOBACILLUS ACIDOPHILUS TAB PO SCH (08:10)
[2017-07-27] MEDS: PANTOPRAZOLE SOD 40 MG DELAYED RELEASE TAB PO SCH (08:11)
[2017-07-27] MEDS: AMIODARONE 200 MG TAB PO SCH (08:11)
[2017-07-27] MEDS: MAGNESIUM OXIDE 400 MG TAB PO SCH (08:11)
[2017-07-27] MEDS: POTASSIUM CHLORIDE 20 MEQ CONTROLLED RELEASE TAB PO SCH (08:11)
[2017-07-27] MEDS: ASPIRIN EC 325 MG TABEC PO SCH (08:11)
[2017-07-27] MEDS: SEVELAMER CARBONATE 800 MG TAB PO SCH (08:11)
[2017-07-27] MEDS: DICYCLOMINE HCL 20 MG TAB PO SCH (08:11)
[2017-07-27] MEDS: HEPARIN SODIUM - SQ 10,000 UNITS/ML VIAL SQ SCH (08:12)
[2017-07-27 08:25] LABS: BASOPHIL % 0.3 % (0.0-2.0); EOSINOPHIL # 0.2 TH/MM3 (0-0.4); EOSINOPHIL % 2.5 % (0.0-4.0); HEMATOCRIT 30.5 % (35.0-46.0); HEMO FLAGS DIFF FINAL; LYMPH % 9.6 % (9.0-44.0); MEAN CELL VOLUME 94.6 FL (80.0-100.0); MEAN CORPUSCULAR HEMOGLOBIN 30.3 PG (27.0-34.0); MONO % 7.5 % (0.0-8.0); NEUT % 80.1 % (16.0-70.0); PLATELET COUNT 163 TH/MM3 (150-450); RED BLOOD COUNT 3.22 MIL/MM3 (4.00-5.30); RED CELL DISTRIBUTION WIDTH 16.5 % (11.6-17.2); WHITE BLOOD COUNT 9.9 TH/MM3 (4.0-11.0)
[2017-07-27 08:32] LABS: POTASSIUM 3.5 MEQ/L (3.5-5.1)
[2017-07-27] MEDS ORDERED: TRIME100 PO (09:13)
[2017-07-27] MEDS ORDERED: DICY20TA10 PO (09:13)
[2017-07-27] MEDS ORDERED: ASPI325T33 PO (09:13)
[2017-07-27] MEDS ORDERED: PANT40TA3 PO (09:13)
[2017-07-27] MEDS ORDERED: AMIO200T PO (09:13)
[2017-07-27] MEDS ORDERED: POTA20TA5 PO (09:13)
[2017-07-27] MEDS ORDERED: LACT PO (09:13)
--- NOTE | 2017-07-27 09:23 | HHI.FF ---
Face to Face Verification Diagnosis: (1) ESRD (end stage renal disease) on dialysis (2) Paroxysmal atrial fibrillation (3) Colitis (4) Anemia of chronic kidney failure (5) Type 2 diabetes mellitus (6) Hypokalemia (7) UTI (lower urinary tract infection) (8) Hypotension Physical Therapy Order: Improve ambulation, Strength and gait training Occupational Therapy Order: Evaluate and Treat Home Health Nursing Order: Nursing assessment with vital signs I have seen patient Brandi Chavez on 07/27/17. My clinical findings support the need for the requested home health care services because: Deconditioned w/ increased weakness I certify that my clinical findings support that this patient is homebound because: Unsafe to leave home unassisted Efrem Chavez MD Jul 27, 2017 09:22
--- NOTE | 2017-07-27 09:48 | HHI.DS ---
Discharge Summary Admission Date Jul 22, 2017 at 13:16 Discharge Date: Jul 27, 2017 Admitting Diagnosis Dehydration/Diarrhea (1) Dehydration Diagnosis: Principal ICD Codes: E86.0 - Dehydration Status: Acute (2) Chronic diarrhea Diagnosis: Principal ICD Codes: K52.9 - Chronic diarrhea Status: Acute (3) Abdominal pain Diagnosis: Principal ICD Codes: R10.9 - Abdominal pain Status: Acute (4) ESRD (end stage renal disease) on dialysis Diagnosis: Secondary ICD Codes: N18.6 - ESRD (end stage renal disease) on dialysis; Z99.2 - Dependence on renal dialysis Status: Chronic (5) Paroxysmal atrial fibrillation with rapid ventricular response Diagnosis: Principal ICD Codes: I48.0 - Paroxysmal atrial fibrillation Status: Acute (6) Hypotension Diagnosis: Principal ICD Codes: I95.9 - Hypotension Status: Acute (7) Anemia of chronic kidney failure Diagnosis: Secondary ICD Codes: D63.1 - Anemia in chronic kidney disease; N18.9 - Anemia of chronic kidney failure Status: Acute (8) Hypokalemia Diagnosis: Principal ICD Codes: E87.6 - Hypokalemia Status: Acute (9) UTI (lower urinary tract infection) Diagnosis: Secondary ICD Codes: N39.0 - UTI (lower urinary tract infection) Status: Acute (10) Polycystic kidney disease Diagnosis: Secondary ICD Codes: Q61.3 - Polycystic kidney, unspecified (11) GERD (gastroesophageal reflux disease) Diagnosis: Secondary ICD Codes: K21.9 - Gastro-esophageal reflux disease without esophagitis (12) Colitis Diagnosis: Principal ICD Codes: K52.9 - Noninfective gastroenteritis and colitis, unspecified (13) Type 2 diabetes mellitus Diagnosis: Secondary ICD Codes: E11.9 - Type 2 diabetes mellitus without complications (14) Gastritis Diagnosis: Principal ICD Codes: K29.70 - Gastritis, unspecified, without bleeding (15) HX: breast cancer Diagnosis: Secondary ICD Codes: Z85.3 - HX: breast cancer Status: Acute Consultants Cardiology (Dr Dupree) Gastroenterology (Dr Vega) Brief History 66 year old white female who came to the ER with diarrhea (watery, loose with no blood) and intermittent mid abdominal discomfort for about a month. She had an EGD (gastritis, esophagitis) and colonoscopy (moderate sigmoid diverticulosis and a flat polyp). She was also given Flagyl in early July for presumed C. difficile colitis which she only took for a few days and then she was changed to oral Vancomycin. She became weaker over the last week prior to coming to the ER. She has ESRD on home peritoneal dialysis. She had hypertension but she had not been taking her Metoprolol and Amlodipine because she states her BP had been low recently also. She was admitted for IV fluids and evaluation of her diarrhea. She also has type 2 diabetes mellitus but is just on diet therapy. She has had cancer of the left breast in the past with prior lumpectomy and radiation therapy. She has polycystic kidney disease. She has an anemia of chronic renal failure and has required Epogen by her dietitian (Dr Cook). CBC/BMP: 07/27/17 0815 07/27/17 0815 Significant Findings Laboratory Tests Test 07/25/17 13:58 07/26/17 06:20 07/26/17 20:15 07/27/17 08:15 White Blood Count 13.5 TH/MM3 10.2 TH/MM3 9.9 TH/MM3 Red Blood Count 3.08 MIL/MM3 2.94 MIL/MM3 3.22 MIL/MM3 Hemoglobin 9.5 GM/DL 9.2 GM/DL 9.8 GM/DL Hematocrit 28.8 % 27.7 % 30.5 % Mean Corpuscular Volume 93.4 FL 94.3 FL 94.6 FL Mean Corpuscular Hemoglobin 30.9 PG 31.4 PG 30.3 PG Mean Corpuscular Hemoglobin Concent 33.1 % 33.2 % 32.0 % Red Cell Distribution Width 16.0 % 15.7 % 16.5 % Platelet Count 162 TH/MM3 145 TH/MM3 163 TH/MM3 Mean Platelet Volume 7.4 FL 7.4 FL 7.2 FL Neutrophils (%) (Auto) 83.9 % 83.0 % 80.1 % Lymphocytes (%) (Auto) 6.6 % 7.2 % 9.6 % Monocytes (%) (Auto) 6.7 % 7.0 % 7.5 % Eosinophils (%) (Auto) 1.7 % 2.5 % 2.5 % Basophils (%) (Auto) 1.1 % 0.3 % 0.3 % Neutrophils # (Auto) 11.4 TH/MM3 8.5 TH/MM3 8.0 TH/MM3 Lymphocytes # (Auto) 0.9 TH/MM3 0.7 TH/MM3 1.0 TH/MM3 Monocytes # (Auto) 0.9 TH/MM3 0.7 TH/MM3 0.7 TH/MM3 Eosinophils # (Auto) 0.2 TH/MM3 0.3 TH/MM3 0.2 TH/MM3 Basophils # (Auto) 0.1 TH/MM3 0.0 TH/MM3 0.0 TH/MM3 CBC Comment DIFF FINAL DIFF FINAL DIFF FINAL Differential Comment Blood Urea Nitrogen 31 MG/DL 28 MG/DL 26 MG/DL Creatinine 9.30 MG/DL 8.80 MG/DL 8.40 MG/DL Random Glucose 92 MG/DL 117 MG/DL 102 MG/DL Calcium Level 9.2 MG/DL 9.0 MG/DL 9.5 MG/DL Sodium Level 136 MEQ/L 136 MEQ/L 135 MEQ/L Potassium Level 3.4 MEQ/L 3.3 MEQ/L 3.5 MEQ/L Chloride Level 100 MEQ/L 102 MEQ/L 101 MEQ/L Carbon Dioxide Level 20.5 MEQ/L 21.6 MEQ/L 22.0 MEQ/L Anion Gap 16 MEQ/L 12 MEQ/L 12 MEQ/L Estimat Glomerular Filtration Rate 4 ML/MIN 5 ML/MIN 5 ML/MIN Urine Color YELLOW Urine Turbidity CLOUDY Urine pH 8.0 Urine Specific [place] 1.011 Urine Protein 300 OR GREATER mg/dL Urine Glucose (UA) NEG mg/dL Urine Ketones NEG mg/dL Urine Occult Blood LARGE Urine Nitrite NEG Urine Bilirubin NEGATIVE Urine Leukocyte Esterase LARGE Urine RBC 3-5 /hpf Urine WBC 9-14 /hpf Urine Squamous Epithelial Cells 6-8 /hpf Urine Amorphous Sediment FEW Urine Bacteria FEW /hpf Urine Yeast (Budding) FEW Microscopic Urinalysis Comment CATH-CULTURE IND Laboratory Tests Test 07/24/17 15:15 07/24/17 17:17 07/25/17 13:58 07/26/17 06:20 White Blood Count 13.5 TH/MM3 (4.0-11.0) Red Blood Count 3.08 MIL/MM3 (4.00-5.30) 2.94 MIL/MM3 (4.00-5.30) Hemoglobin 9.5 GM/DL (11.6-15.3) 9.2 GM/DL (11.6-15.3) Hematocrit 28.8 % (35.0-46.0) 27.7 % (35.0-46.0) Neutrophils (%) (Auto) 83.9 % (16.0-70.0) 83.0 % (16.0-70.0) Lymphocytes (%) (Auto) 6.6 % (9.0-44.0) 7.2 % (9.0-44.0) Neutrophils # (Auto) 11.4 TH/MM3 (1.8-7.7) 8.5 TH/MM3 (1.8-7.7) Lymphocytes # (Auto) 0.9 TH/MM3 (1.0-4.8) 0.7 TH/MM3 (1.0-4.8) Blood Urea Nitrogen 31 MG/DL (7-18) 28 MG/DL (7-18) Creatinine 9.30 MG/DL (0.50-1.00) 8.80 MG/DL (0.50-1.00) Potassium Level 3.4 MEQ/L (3.5-5.1) 3.3 MEQ/L (3.5-5.1) Carbon Dioxide Level 20.5 MEQ/L (21.0-32.0) Anion Gap 16 MEQ/L (5-15) Estimat Glomerular Filtration Rate 4 ML/MIN (>89) 5 ML/MIN (>89) Platelet Count 145 TH/MM3 (150-450) Random Glucose 117 MG/DL (74-106) Test 07/26/17 20:15 07/27/17 08:15 Urine Turbidity CLOUDY (CLEAR) Urine Protein 300 OR GREATER mg/dL Urine Occult Blood LARGE (NEG) Urine Leukocyte Esterase LARGE (NEG) Urine WBC 9-14 /hpf (0-5) Urine Squamous Epithelial Cells 6-8 /hpf (0-5) Urine Bacteria FEW /hpf (NONE) Urine Yeast (Budding) FEW (NONE) Red Blood Count 3.22 MIL/MM3 (4.00-5.30) Hemoglobin 9.8 GM/DL (11.6-15.3) Hematocrit 30.5 % (35.0-46.0) Neutrophils (%) (Auto) 80.1 % (16.0-70.0) Neutrophils # (Auto) 8.0 TH/MM3 (1.8-7.7) Blood Urea Nitrogen 26 MG/DL (7-18) Creatinine 8.40 MG/DL (0.50-1.00) Sodium Level 135 MEQ/L (136-145) Estimat Glomerular Filtration Rate 5 ML/MIN (>89) Imaging Last Impressions Small Bowel X-Ray 07/25/17 0000 Signed Impressions: Service Date/Time: Tuesday, July 25, 2017 08:40 - CONCLUSION: Unremarkable small bowel examination. Exam was performed portably , the small bowel transit time is 2 hours without evidence of fold thickening or obstruction. Filemon Terry MD Abdomen/Pelvis CT 07/22/17 0000 Signed Impressions: Service Date/Time: Saturday, July 22, 2017 12:57 - CONCLUSION: Peritoneal catheter with scattered free fluid throughout the abdomen. Autosomal dominant polycystic kidney disease without evidence of solid mass. Bilateral renal calcifications, unchanged Filemon Terry MD PE at Discharge Exam: Pleasant female in no distress. HEENT: pupils equal, no scleral icterus, mouth negative Neck: No JVD Heart: RRR (still in sinus rhythm after being converted from a-fib with RVR with Amiodarone Lungs: Clear Abdomen: Soft, no significant epigastric tenderness, no guarding or rebound Extremities: No edema Neuro: Alert, no motor or sensory deficits Hospital Course Patient was admitted and begun on IV fluids and potassium. GI consult was ordered and stool studies for C. difficile were done which turned out to be negative. A small bowel series was negative. She while in the hospital had an episode of a-fib with RVR and was transferred to the intensive care unit and her manager diversity (Dr Dupree) was consulted. She was given IV Amiodarone and converted to a sinus rhythm and has stayed in sinus rhythm. Dr Dupree just put her on Aspirin 325mg daily for her paroxysmal atrial fibrillation. He has seen her as an outpatient and she will followup with him. I did start her on Trimethoprim 100mg daily for 5 days for a presumed UTI when her UA came back today suggestive of a UTI. Her diarrhea has resolved and abdominal pain has much improved with Pantoprazole and Dicyclomine. Her strength has improved. She is going to be discharged with Home Health care. She declined my offer for a rehab facility. She is instructed to use her walker at home which she has. She will followup with Dr Park (PCP), Dr Vega (GI), and Dr Dupree (cardiology). I ordered a repeat CBC and BMP in 2 days. Pt Condition on Discharge: Stable Discharge Disposition: Disch w/ Home Health Serv Discharge Instructions DIET: Follow Instructions for: Renal Failure Diet Activities you can perform: Regular-No Restrictions Follow up Referrals: Gastroenterology with Lanette Vega MD PCP Follow-up - 3-[address] [facility]/ with [facility] New Orders: BASIC METABOLIC PROF - 2 Days CBC WITH DIFF - 2 Days New Medications: Amiodarone (Amiodarone) 200 Mg Tab 200 MG PO DAILY for a-fib for 30 Days, #30 TAB [address] (Aspirin EC) 325 Mg Tabdr 325 MG PO DAILY for a-fib for 30 Days, #30 TAB Dicyclomine (Dicyclomine) 20 Mg Tab 20 MG PO TID for abdominal pain for 30 Days, TAB Lactobacillus Acidophilus (Acidophilus/l-Sporogenes) 35 Million Cell-25 Million Cell Tab 1 TAB PO TID for colitis for 90 Days, #90 TAB 1 Refill Pantoprazole (Pantoprazole) 40 Mg Tab 40 MG PO DAILY for gastritis for 30 Days, #30 TAB 1 Refill Potassium Chloride Microencaps (Potassium Chloride Microencaps) 20 Meq Tab 20 MEQ PO BID for hypokalemia, #14 TAB Trimethoprim (Trimethoprim) 100 Mg Tab 100 MG PO DAILY for UTI for 5 Days, #5 TAB Continued Medications: Magnesium Oxide (Magnesium Oxide) 400 Mg Tab 400 MG PO DAILY for Nutritional Supplement, TAB 0 Refills Sevelamer Carbonate (Renvela) 800 Mg Tab 4 TAB PO TID for Control phosphorous levels, #180 TAB 0 Refills Discontinued Medications: Metoprolol Tartrate (Metoprolol Tartrate) 50 Mg Tab 50 MG PO BID, #60 TAB 0 Refills Potassium Chloride ER (K-Tab) 10 Meq Tab 10 MEQ PO BID for Electrolyte Replacement, #60 TAB 0 Refills Efrem Chavez MD Jul 27, 2017 09:48
[2017-07-27] MEDS ORDERED: TRIMETHOPRIM 100 MG TAB PO SCH (11:00)
[2017-07-29 13:54] LABS: ENDOMYSIAL AB TITER ND (<1:5); TISSUE TRANSGLUTAMINASE AB LESS THAN 1 U/mL (0-4)
== END 2017-07-27 11:00 | disposition home health service (06) | DRG 640 ==
LOC: PHED 11:23 → PHEDA 13:16 → PH3A 15:01 → PHICU 07-24 00:09
PROVIDERS: ADMIT Family Medicine; ATTEND Family Medicine
PROC: 3E1M39Z Irrigation of Peritoneal Cavity using Dialysate, Percutaneous Approach (ICD-10-PCS; principal; 2017-07-22)
DX: E86.0 Dehydration (principal); N18.6 End stage renal disease; K52.9 Noninfective gastroenteritis and colitis, unspecified; I13.2 Hypertensive heart and chronic kidney disease with heart failure and with stage 5 chronic kidney disease, or end stage renal disease; I95.9 Hypotension, unspecified; E11.22 Type 2 diabetes mellitus with diabetic chronic kidney disease; I48.0 Paroxysmal atrial fibrillation; Q61.2 Polycystic kidney, adult type; N39.0 Urinary tract infection, site not specified; I50.9 Heart failure, unspecified; E87.6 Hypokalemia; F41.9 Anxiety disorder, unspecified; K21.0 Gastro-esophageal reflux disease with esophagitis; Z86.010 Personal history of colon polyps; Z92.3 Personal history of irradiation; Z85.3 Personal history of malignant neoplasm of breast; Z87.440 Personal history of urinary (tract) infections; Z99.2 Dependence on renal dialysis; M10.9 Gout, unspecified; M85.80 Other specified disorders of bone density and structure, unspecified site; I34.0 Nonrheumatic mitral (valve) insufficiency; K29.70 Gastritis, unspecified, without bleeding; K57.30 Diverticulosis of large intestine without perforation or abscess without bleeding; D63.1 Anemia in chronic kidney disease; M54.2 Cervicalgia
CPT/HCPCS: 36430; 74176; 74250; 76937; 80048; 80053; 81001; 82550; 82710; 82784; 82941; 82948; 83516; 83605; 83690; 83735; 84100; 84132; 84484; 84586; 85014; 85018; 85025; 85610; 85730; 86316; 86850; 86900; 86901; 86920; 87040; 87077; 87086; 87186; 87493; 87641; 93005; 96361; 96374; C9113; J0282; J1644; J3480; J7030; J7060; P9016

== ENCOUNTER 2017-09-03 12:36 | Emergency (ER) | payer MEDICARE ==
[~2017-09-03] VITALS: Ht 165.1 cm; Wt 86.4 kg
[~2017-09-03 12:36] MED LIST changes: -ALPR0.25 PO; +AMIO200T PO; -AMLO5TAB2 PO; +ASPI325T33 PO; -BACT800T5 PO; +DICY20TA10 PO; -INDO25CA PO; -K-TA10TA PO; -KETO2CRE TOPICAL; +LACT PO; -METO50TA PO; +PANT40TA3 PO; +POTA20TA5 PO; +TRIME100 PO; +[UNRECOGNIZED DRUG - REMARK]
[2017-09-03] MEDS ORDERED: SODIUM CHLOR 0.9% 1000 ML INJ 1,000 ML IV ONE (13:00)
[2017-09-03 13:19] VITALS: BP 97/51; PULSE 79; RESP 16; O2SAT 100
[2017-09-03 13:45] LABS: AUTOMATED NEUTROPHIL # 7.8 TH/MM3 (1.8-7.7); BASOPHIL # 0.1 TH/MM3 (0-0.2); BASOPHIL % 0.6 % (0.0-2.0); EOSINOPHIL # 0.2 TH/MM3 (0-0.4); HEMATOCRIT 37.5 % (35.0-46.0); HEMOGLOBIN 12.5 GM/DL (11.6-15.3); LYMPH % 9.9 % (9.0-44.0); MEAN CELL VOLUME 100.8 FL (80.0-100.0); MEAN CORPUSCULAR HEMOGLOBIN 33.6 PG (27.0-34.0); MEAN CORPUSCULAR HGB CONC 33.4 % (32.0-36.0); MEAN PLATELET VOLUME 8.7 FL (7.0-11.0); MONO % 8.5 % (0.0-8.0); MONOCYTE # 0.8 TH/MM3 (0-0.9); PLATELET COUNT 224 TH/MM3 (150-450); RED BLOOD COUNT 3.72 MIL/MM3 (4.00-5.30); WHITE BLOOD COUNT 9.9 TH/MM3 (4.0-11.0)
[2017-09-03 14:09] LABS: ALBUMIN 2.9 GM/DL (3.4-5.0); ALT (GPT) 17 U/L (10-53); AST (GOT) 13 U/L (15-37); BICARBONATE 26.1 MEQ/L (21.0-32.0); BLOOD UREA NITROGEN 25 MG/DL (7-18); CALCIUM 10.2 MG/DL (8.5-10.1); CHLORIDE 98 MEQ/L (98-107); GLOMERULAR FILTRATION RATE 4 ML/MIN (>89); GLUCOSE,RANDOM 102 MG/DL (74-106); SODIUM (NA) 136 MEQ/L (136-145)
[2017-09-03 14:10] LABS: ALKALINE PHOSPHATASE 131 U/L (45-117); TOTAL BILIRUBIN ADULT 0.2 MG/DL (0.2-1.0); TOTAL PROTEIN 5.9 GM/DL (6.4-8.2)
[2017-09-03 14:12] LABS: CREATININE 10.45 MG/DL (0.50-1.00)
[2017-09-03 14:20] VITALS: BP 126/68; PULSE 100; RESP 16; O2SAT 99
--- NOTE | 2017-09-03 15:26 | PD ---
HPI Chief Complaint: Dizziness Time Seen by Provider: 12:44 Travel History International Travel<30 days: No Contact w/Intl Traveler<30days: No Traveled to known affect area: No History of Present Illness HPI 67 year-old woman, history. 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 She states she's had intermittent similar problems in the past. She feels overall well. She states one episode a couple days ago and then again today. Episodes consist of feeling lightheaded dizzy near syncopal. She was on Midrin in the past for low blood pressures, but is not taking it recently. She is not on any diuretics. She reports she is on amlodipine for A. fib. No other recent changes in her symptoms. After feeling lightheaded and weak during her lab draw, they called the back. [facility] arrived she low blood pressure in the 70s and 80s systolic. History Past Medical History Narrative Medical A. fib End-stage renal disease on PD History of hypertension History of hypertension in the past PCKD Menopausal: Yes Dilation and Curettage (D&C): Yes Social History Alcohol Use: No Tobacco Use: No Allergies-Medications (Allergen,Severity, Reaction): Coded Allergies: codeine (Verified Allergy, Severe, NAUSEA/VOMITING, 09/03/17) morphine (Verified Allergy, Severe, MIGRAINES, 09/03/17) acetaminophen (Verified Allergy, Intermediate, ITCHING, 09/03/17) latex (Verified Allergy, Intermediate, Rash, 09/03/17) oxycodone (Verified Allergy, Intermediate, ITCHING, 09/03/17) doxycycline (Verified Adverse Reaction, Severe, GI UPSET, 09/03/17) Reported Meds & Prescriptions Reported Meds & Active Scripts Active Acidophilus/l-Sporogenes (Lactobacillus Acidophilus) 35 Million Cell-25 Million Cell Tab 1 Tab PO TID 90 Days Pantoprazole (Pantoprazole Sodium) 40 Mg Tab 40 Mg PO DAILY 30 Days Potassium Chloride Microencaps 20 Meq Tab 20 Meq PO BID Aspirin EC (Aspirin) 325 Mg Tabdr 325 Mg PO DAILY 30 Days Amiodarone (Amiodarone HCl) 200 Mg Tab 200 Mg PO DAILY 30 Days Dicyclomine (Dicyclomine HCl) 20 Mg Tab 20 Mg PO TID 30 Days Trimethoprim 100 Mg Tab 100 Mg PO DAILY 5 Days Reported [Anti For Bladder ] Magnesium Oxide 400 Mg Tab 400 Mg PO DAILY Renvela (Sevelamer Carbonate) 800 Mg Tab 4 Tab PO TID Review of Systems Except as stated in HPI: all other systems reviewed are Neg Physical Exam Narrative GENERAL: Well-appearing 67 old man, no acute distress. SKIN: Significantly decreased skin turgor. HEAD: Atraumatic. Normocephalic. EYES: Pupils equal and round. No scleral icterus. No injection or drainage. ENT: No nasal bleeding or discharge. Mucous membranes pink and moist. NECK: Trachea midline. No JVD. CARDIOVASCULAR: Regular rate and rhythm. No murmur appreciated. RESPIRATORY: No accessory muscle use. Clear to auscultation. Breath sounds equal bilaterally. GASTROINTESTINAL: Abdomen soft, non-tender, nondistended. Hepatic and splenic margins not palpable. PD catheter in place. MUSCULOSKELETAL: No obvious deformities. No edema. NEUROLOGICAL: Awake and alert. No obvious cranial nerve deficits. Motor grossly within normal limits. Normal speech. Data Data Last Documented VS Vital Signs Date Time Temp Pulse Resp B/P (MAP) Pulse Ox O2 Delivery O2 Flow Rate FiO2 09/03/17 14:20 100 16 126/68 (87) 99 Room Air Orders Orders Complete Blood Count With Diff (09/03/17 12:48) Comprehensive Metabolic Panel (09/03/17 12:48) Sodium Chlor 0.9% 1000 Ml Inj (Ns 1000 M (09/03/17 13:00) Electrocardiogram (09/03/17 ) Labs Laboratory Tests Test 09/03/17 13:10 White Blood Count 9.9 TH/MM3 Red Blood Count 3.72 MIL/MM3 Hemoglobin 12.5 GM/DL Hematocrit 37.5 % Mean Corpuscular Volume 100.8 FL Mean Corpuscular Hemoglobin 33.6 PG Mean Corpuscular Hemoglobin Concent 33.4 % Red Cell Distribution Width 19.0 % Platelet Count 224 TH/MM3 Mean Platelet Volume 8.7 FL Neutrophils (%) (Auto) 79.0 % Lymphocytes (%) (Auto) 9.9 % Monocytes (%) (Auto) 8.5 % Eosinophils (%) (Auto) 2.0 % Basophils (%) (Auto) 0.6 % Neutrophils # (Auto) 7.8 TH/MM3 Lymphocytes # (Auto) 1.0 TH/MM3 Monocytes # (Auto) 0.8 TH/MM3 Eosinophils # (Auto) 0.2 TH/MM3 Basophils # (Auto) 0.1 TH/MM3 CBC Comment DIFF FINAL Differential Comment Blood Urea Nitrogen 25 MG/DL Creatinine 10.45 MG/DL Random Glucose 102 MG/DL Total Protein 5.9 GM/DL Albumin 2.9 GM/DL Calcium Level 10.2 MG/DL Alkaline Phosphatase 131 U/L Aspartate Amino Transf (AST/SGOT) 13 U/L Alanine Aminotransferase (ALT/SGPT) 17 U/L Total Bilirubin 0.2 MG/DL Sodium Level 136 MEQ/L Potassium Level 3.9 MEQ/L Chloride Level 98 MEQ/L Carbon Dioxide Level 26.1 MEQ/L Anion Gap 12 MEQ/L Estimat Glomerular Filtration Rate 4 ML/MIN [facility] Medical Decision Making Medical Screen Exam Complete: Yes Emergency Medical Condition: Yes Interpretation(s) LABS: CBC unremarkable. CMP remarkable for elevated BUN and creatinine, chemistries are otherwise unremarkable. Differential Diagnosis Hypotension, dehydration, orthostasis, vagovagal, other Narrative Course Medical decision making INITIAL: 67 year-old woman with hypotension is having her blood drawn, history of same, appears markedly dehydrated on exam, BUN/creatinine are elevated. Her dialysis nurses did change her solution to reduce the amount of fluid they are taking out. She's improved after IV fluids here. We'll recommend that she increase her oral intake. Make the changes as directed by their dialysis Center. Outpatient follow-up. Diagnosis Primary Impression: Dehydration Additional Impression: Hypotension Additional Instructions: Drink plenty of fluids stay well-hydrated. Make changes here to the dialysis solution as directed by her dialysis nurse. Return to the emergency department for any new or worsening symptoms. Med/Other Pt SpecificInfo: No Change to Meds Disposition: 01 DISCHARGE HOME Condition: Stable Filemon Curtis MD Sep 03, 2017 15:25
[2017-09-03 15:56] VITALS: BP_SYST 136; BP_SYST 83; BP_DIAS 58; BP_DIAS 70
[2017-09-03] MEDS ORDERED: LIDO5%T TOPICAL (16:05)
--- NOTE | 2017-09-05 23:55 | EKG ---
Date Performed: 09/03/2017 Time Performed: 13:32:28 PTAGE: 67 years EKG: Sinus rhythm LOW QRS VOLTAGE IN PRECORDIAL LEADS LEFT ANTERIOR FASCICULAR BLOCK POSSIBLE ANTERIOR MYOCARDIAL INFA RCTION INFERIOR MYOCARDIAL INFARCTION ABNORMAL ECG PREVIOUS TRACING : 07/24/2017 16.19 DOCTOR: Serge Galeano Interpretating Date/Time 09/05/2017 23:54:23
== END 2017-09-03 16:00 | disposition home or self-care (01) ==
LOC: NEPC 12:36
DX: E86.0 Dehydration (principal); I95.9 Hypotension, unspecified; I12.0 Hypertensive chronic kidney disease with stage 5 chronic kidney disease or end stage renal disease; N18.6 End stage renal disease; I48.91 Unspecified atrial fibrillation; R94.31 Abnormal electrocardiogram [ECG] [EKG]; Z99.2 Dependence on renal dialysis
CPT/HCPCS: 80053; 85025; 93005; 96360; 96361; 99284; J7030

== ENCOUNTER → 2017-12-29 | Outpatient (CLI) | payer MEDICARE ==
[~2017-12-29] MED LIST changes: +LIDO5%T TOPICAL
--- NOTE | 2017-12-29 10:41 | RADRPT ---
EXAM DATE/TIME: 12/29/2017 09:16 [facility] COMPARISON: CT ABDOMEN & PELVIS W/O CONTRAST, July 22, 2017, 12:57. US ABODEMN COMPLETE, July 11, 2010CT ABDOMEN AND PELVIS W/O CONTRAST, 04/08/12. INDICATIONS : Abdominal pain. MEDICAL HISTORY : Hypercholesterolemia. Hypertension. Gastroesophageal reflux disease. Atrial fibrillation. Coronary ar soren disease. Gout. Diabetes. Polycystic kidney disease. SURGICAL HISTORY : Cholecystectomy. Breast biopsy. Dilation & curettage. Peritoneal dialysis cath placement. Cardiac c atheterization. ENCOUNTER: Initial ACUITY: 1 week PAIN SCORE: 6/10 LOCATION: Bilateral abdomen. MEASUREMENTS: LIVER: 22.3 cm length COMMON DUCT: 14 mm RIGHT KIDNEY: 14.5 x 6.1 x 5.2 cm LEFT KIDNEY: 12.2 x 4.5 x 5.2 cm SPLEEN: 10.2 cm length AORTA: 2.1cm maximal FINDINGS: Moderate amount of ascites. LIVER: Normal echotexture without focal lesion or ductal dilatation. No intrahepatic biliary ductal dilatat ion. COMMON DUCT: Dilated. No intraluminal mass or stone visualized. GALLBLADDER: Cholecystectomy. PANCREAS: The visualized portions are within normal limits. RIGHT KIDNEY: Polycystic kidney. LEFT KIDNEY: Polycystic kidney. SPLEEN: No focal lesion. AORTA: Non aneurysmal. IVC: Within normal limits. CONCLUSION: 1. The common hepatic duct is dilated to 14 mm, greater than would be expected post cholecystectomy. They consider performing a biliary tract scan to evaluate biliary excretory dynamics. 2. Mild to moderate amount of ascites 3. Polycystic kidneys. Luis Antonio Damon MD on December 29, 2017 at 10:33 Board Certified Radiologist. This report was verified electronically.
== END ==
LOC: HRAD 08:43
PROVIDERS: ATTEND Internal Medicine Gastroenterology
DX: R10.9 Unspecified abdominal pain (principal)
CPT/HCPCS: 76700

== ENCOUNTER → 2018-01-06 | Outpatient (CLI) | payer MEDICARE ==
--- NOTE | 2018-01-06 10:59 | RADRPT ---
EXAM DATE/TIME: 01/06/2018 09:44 [facility] COMPARISON: No previous studies available for comparison. INDICATIONS : Abdominal pain. MEDICAL HISTORY : Hypercholesterolemia. Hypertension. Gastroesophageal reflux disease. AFib. Coronary artery disease. G out. Diabetes. Polycystic kidney disease. SURGICAL HISTORY : Cholecystectomy. Breast biopsy. D&C. Peritoneal dialysis cath placement. Cardiac cath. 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 Patrick Brooks MD on January 06, 2018 at 10:50 Board Certified Radiologist. This report was verified electronically.
== END ==
LOC: HRAD 09:32
PROVIDERS: ATTEND Internal Medicine Gastroenterology
DX: R10.9 Unspecified abdominal pain (principal)
CPT/HCPCS: 93975

== ENCOUNTER 2018-10-10 11:01 | Inpatient (IN) ==
--- NOTE | 2018-10-10 11:26 | ED ---
HPI General Chief complaint: Weakness Stated complaint: heart/weakness/ams complaint Time Seen by Provider: 10/10/18 11:07 History of Present Illness HPI narrative: This is a 68-year-old female with history of end-stage renal disease on hemodialysis Tuesdays and Saturdays, atrial fibrillation, hypertension, diabetes, diverticulosis, dialysis Tuesdays and Saturdays, presents for evaluation. She reports that for greater than 1 week she has had generalized weakness, fatigue, trouble concentrating, difficulty finding words reports that yesterday she had a headache and an episode of vomiting but that resolved. She reports that today she developed pain in her left lower quadrant of the abdomen. Symptoms are moderate, constant, no obvious aggravating or alleviating factors. She is denying chest pain, shortness of breath, diarrhea, fevers or chills, flank pain. She has no other complaints at this time. Primary care physician is Dr. Rivero. Related Data Home Medications Medication Instructions Recorded Confirmed amiodarone 200 mg PO DAILY 05/13/18 10/10/18 cinacalcet [Sensipar] 60 mg PO DAILY 05/13/18 10/10/18 egryiv-lohvyfam-rtvlucn [Creon] 6,000 unit TID 05/13/18 10/10/18 Bacillus coagulans [Digestive 1 tab PO DAILY 08/07/18 10/10/18 Advantage] dicyclomine 20 mg PO TIDAC 08/07/18 10/10/18 docusate sodium [Colace] 100 mg PO DAILY PRN 08/07/18 10/10/18 metoprolol tartrate 50 mg PO BID 08/07/18 10/10/18 sevelamer carbonate [Renvela] 3,200 mg PO TID 08/07/18 10/10/18 vit B comp no.0-uhvkb-I-biotin 1 tab PO DAILY 08/07/18 10/10/18 [Hillary-Chris Rx] Previous Rx's Medication Instructions Recorded alprazolam 0.5 mg PO TID PRN #10 tab 08/27/18 diltiazem HCl 120 mg PO DAILY #30 cap 08/27/18 Allergies Allergy/AdvReac Type Severity Reaction Status Date / Time codeine Allergy Severe NAUSEA/VOMI Verified 10/10/18 11:27 TING morphine Allergy Severe MIGRAINES Verified 10/10/18 11:27 acetaminophen Allergy Intermediate ITCHING Verified 10/10/18 11:27 latex Allergy Intermediate Rash Verified 10/10/18 11:27 oxycodone Allergy Intermediate ITCHING Verified 10/10/18 11:27 doxycycline AdvReac Severe GI UPSET Verified 10/10/18 11:27 Review of Systems ROS: all other systems reviewed are negative FOR[facility]LY [facility] Social History Social History Substance History: No History of Abuse Second Hand Smoke Exposure: No Smoking Status: Never smoker Tobacco Type: Cigarettes How Often Do You Have a Drink Containing Alcohol: Never Recent Travel in [facility] within the Last 8 Weeks: No Recent Out of Country Travel within the Last 8 Weeks: No Exam Narrative Exam Narrative: GENERAL: This is a chronically ill-appearing female appears in no acute distress. She is answering questions appropriately. SKIN: Warm and dry. Stage I pressure ulcer noted on the sacrum. HEAD: Atraumatic. Normocephalic. EYES: Pupils equal and round. No scleral icterus. No injection or drainage. ENT: No nasal bleeding or discharge. Mucous membranes pink and moist. NECK: Trachea midline. No JVD. CARDIOVASCULAR: Regular rate and rhythm. No murmur appreciated. RESPIRATORY: No accessory muscle use. Clear to auscultation. Breath sounds equal bilaterally. GASTROINTESTINAL: Abdomen soft, mild tenderness to palpation in the left lower quadrant without guarding. There are bandages on the lower abdomen-she had a peritoneal dialysis catheter removed on September 24. MUSCULOSKELETAL: No obvious deformities. No clubbing. No cyanosis. No edema. NEUROLOGICAL: Awake and alert. No obvious cranial nerve deficits. Motor grossly within normal limits. Normal speech. 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 No upper or lower extremity drift. Course Initial Documented Vital Signs Temperature 97.7 F 10/10/18 11:02 Pulse Rate 80 10/10/18 11:02 Respiratory Rate 18 10/10/18 11:02 Blood Pressure 145/63 H 10/10/18 11:02 Pulse Oximetry 95 10/10/18 11:02 Last Documented Vital Signs Temperature 97.7 F 10/10/18 11:02 Pulse Rate 69 10/10/18 13:35 Respiratory Rate 20 10/10/18 13:35 Blood Pressure 130/73 10/10/18 13:35 Pulse Oximetry 99 10/10/18 13:35 Medical Decision Making MDM Narrative Medical decision making narrative: The patient was placed on ECG monitoring pulse oximetry. A 12-lead EKG was obtained revealing sinus rhythm with a rate of 69. Lab work, CT brain, CT abdomen pelvis, chest x-ray ordered. 500 mL of normal saline administered per Urinalysis reveals large leukocytes, moderate WBC clumps, 51 RBCs, few bacteria , culture pending. IV Rocephin initiated. CBC reveals a WBC count of 8.4, 83% neutrophils. CMP reveals a creatinine of 5.41, BUN 15. Lactic acid within normal limits. CT abdomen pelvis reveals an apparent tiny stone in the proximal left ureter without associated hydronephrosis or hydroureter. This was unchanged in comparison to previous CT from August 2018. No acute abnormalities. Previously seen ascites and free intraperitoneal air have resolved. CT brain reveals no acute abnormalities. Chest x-ray reveals no acute abnormalities. Total CK is 888. I discussed with the patient that the options are that we could treat her UTI as an outpatient and have her follow-up with her primary care physician Dr. Moraes on Friday, in 2 days however the patient feels just generally too weak to go home. Discussed with Dr. Lovelace who is agreeable with observation admission. will also discussed with the on-call psych sales specialist as the patient missed her dialysis today. Medical Screen Exam Complete: Yes Emergency Medical Condition: Yes Differential Diagnosis Differential Diagnosis: CVA, TIA, delirium, electrolyte abnormality, sepsis, diverticulitis, UTI, peritonitis Lab Data Result diagrams: 10/10/18 11:45 10/10/18 11:45 Lab Results 10/10/18 10/10/18 10/10/18 Range/Units 11:40 11:45 11:45 WBC (4.0-11.0) th/mm3 RBC (4.00-5.30) mil/mm3 Hgb (11.6-15.3) gm/dL Hct (35.0-46.0) % MCV (80.0-100.0) fL MCH (27.0-34.0) pg MCHC (32.0-36.0) % RDW (11.6-17.2) % Plt Count (150-450) th/mm3 MPV (7.0-11.0) fL Neut % (Auto) (16.0-70.0) % Lymph % (Auto) (9.0-44.0) % [place] % (Auto) (0.0-8.0) % Eos % (Auto) (0.0-4.0) % Baso % (Auto) (0.0-2.0) % Neut # (Auto) (1.8-7.7) th/mm3 Lymph # (Auto) (1.0-4.8) th/mm3 [place] # (Auto) (0.0-0.9) th/mm3 Eos # (Auto) (0.0-0.4) th/mm3 Baso # (Auto) (0.0-0.2) th/mm3 WBC Differential Differential Comment PT 10.6 (9.8-11.6) sec INR 1.0 Ratio APTT 23.5 (23.4-31.7) sec Sodium (136-145) meq/L Potassium (3.5-5.1) meq/L Chloride (98-107) meq/L Carbon Dioxide (21.0-32.0) meq/L Anion Gap (5-15) meq/L BUN (7-18) mg/dL Creatinine (0.50-1.00) mg/dL Estimated GFR (>89) mL/min POC Glucose 80 (68-110) mg/dl Random Glucose (74-106) mg/dL Lactic Acid (0.4-2.0) mmol/L Calcium (8.5-10.1) mg/dL Phosphorus Cancelled Magnesium (1.5-2.5) mg/dL Total Bilirubin (0.2-1.0) mg/dL AST (15-37) U/L ALT (10-53) U/L Alkaline Phosphatase (45-117) U/L Total Creatine Kinase (26-192) U/L CK-MB (CK-2) (0.5-3.6) ng/mL CK-MB (CK-2) % (0.0-4.0) % Troponin I (0.02-0.05) ng/mL Total Protein (6.4-8.2) g/dL Albumin (3.4-5.0) g/dL TSH (0.358-3.740) uIU/mL Urine Color (Yellw/Straw) Urine Clarity (Clear) Urine pH (5.0-8.5) Ur Specific [place] (1.002-1.035) Urine Protein (Neg-Trace) mg/dL Urine Glucose (UA) (Negative) mg/dL Urine Ketones (Negative) mg/dL Urine Occult Blood (Negative) Urine Nitrate (Negative) Urine Bilirubin (Negative) Urine Urobilinogen (Less than 2) mg/dL Ur Leukocyte Esterase (Negative) Urine RBC (0-3) /hpf Urine WBC (0-5) /hpf Urine WBC Clumps (None) Ur Squamous Epith Cells (0-5) /hpf Urine Bacteria (None) /hpf Micro UA Comment Ur Microscopic Review Urine Culture Comments 10/10/18 10/10/18 10/10/18 Range/Units 11:45 11:45 11:45 WBC 8.4 (4.0-11.0) th/mm3 RBC 3.64 L (4.00-5.30) mil/mm3 Hgb 12.4 (11.6-15.3) gm/dL Hct 37.7 (35.0-46.0) % MCV 103.4 H (80.0-100.0) fL MCH 34.0 (27.0-34.0) pg MCHC 32.9 (32.0-36.0) % RDW 17.4 H (11.6-17.2) % Plt Count 145 L (150-450) th/mm3 MPV 8.8 (7.0-11.0) fL Neut % (Auto) 83.7 H (16.0-70.0) % Lymph % (Auto) 7.2 L (9.0-44.0) % [place] % (Auto) 6.6 (0.0-8.0) % Eos % (Auto) 2.0 (0.0-4.0) % Baso % (Auto) 0.5 (0.0-2.0) % Neut # (Auto) 7.1 (1.8-7.7) th/mm3 Lymph # (Auto) 0.6 L (1.0-4.8) th/mm3 [place] # (Auto) 0.6 (0.0-0.9) th/mm3 Eos # (Auto) 0.2 (0.0-0.4) th/mm3 Baso # (Auto) 0.0 (0.0-0.2) th/mm3 WBC Differential . Differential Comment Auto diff final PT (9.8-11.6) sec INR Ratio APTT (23.4-31.7) sec Sodium 135 L (136-145) meq/L Potassium 4.3 (3.5-5.1) meq/L Chloride 98 (98-107) meq/L Carbon Dioxide 26.0 (21.0-32.0) meq/L Anion Gap 11 (5-15) meq/L BUN 15 (7-18) mg/dL Creatinine 5.41 H (0.50-1.00) mg/dL Estimated GFR 8 L (>89) mL/min POC Glucose (68-110) mg/dl Random Glucose 84 (74-106) mg/dL Lactic Acid 1.0 (0.4-2.0) mmol/L Calcium 11.2 H (8.5-10.1) mg/dL Phosphorus 4.2 Magnesium 1.9 (1.5-2.5) mg/dL Total Bilirubin 0.4 (0.2-1.0) mg/dL AST 62 H (15-37) U/L ALT 24 (10-53) U/L Alkaline Phosphatase 106 (45-117) U/L Total Creatine Kinase 888 H (26-192) U/L CK-MB (CK-2) 13.8 H (0.5-3.6) ng/mL CK-MB (CK-2) % 1.6 (0.0-4.0) % Troponin I 0.02 (0.02-0.05) ng/mL Total Protein 5.2 L (6.4-8.2) g/dL Albumin 2.6 L (3.4-5.0) g/dL TSH 2.950 (0.358-3.740) uIU/mL Urine Color (Yellw/Straw) Urine Clarity (Clear) Urine pH (5.0-8.5) Ur Specific [place] (1.002-1.035) Urine Protein (Neg-Trace) mg/dL Urine Glucose (UA) (Negative) mg/dL Urine Ketones (Negative) mg/dL Urine Occult Blood (Negative) Urine Nitrate (Negative) Urine Bilirubin (Negative) Urine Urobilinogen (Less than 2) mg/dL Ur Leukocyte Esterase (Negative) Urine RBC (0-3) /hpf Urine WBC (0-5) /hpf Urine WBC Clumps (None) Ur Squamous Epith Cells (0-5) /hpf Urine Bacteria (None) /hpf Micro UA Comment Ur Microscopic Review Urine Culture Comments 10/10/18 10/10/18 Range/Units 11:45 11:50 WBC (4.0-11.0) th/mm3 RBC (4.00-5.30) mil/mm3 Hgb (11.6-15.3) gm/dL Hct (35.0-46.0) % MCV (80.0-100.0) fL MCH (27.0-34.0) pg MCHC (32.0-36.0) % RDW (11.6-17.2) % Plt Count (150-450) th/mm3 MPV (7.0-11.0) fL Neut % (Auto) (16.0-70.0) % Lymph % (Auto) (9.0-44.0) % [place] % (Auto) (0.0-8.0) % Eos % (Auto) (0.0-4.0) % Baso % (Auto) (0.0-2.0) % Neut # (Auto) (1.8-7.7) th/mm3 Lymph # (Auto) (1.0-4.8) th/mm3 [place] # (Auto) (0.0-0.9) th/mm3 Eos # (Auto) (0.0-0.4) th/mm3 Baso # (Auto) (0.0-0.2) th/mm3 WBC Differential Differential Comment PT (9.8-11.6) sec INR Ratio APTT (23.4-31.7) sec Sodium (136-145) meq/L Potassium (3.5-5.1) meq/L Chloride (98-107) meq/L Carbon Dioxide (21.0-32.0) meq/L Anion Gap (5-15) meq/L BUN (7-18) mg/dL Creatinine (0.50-1.00) mg/dL Estimated GFR (>89) mL/min POC Glucose (68-110) mg/dl Random Glucose (74-106) mg/dL Lactic Acid (0.4-2.0) mmol/L Calcium (8.5-10.1) mg/dL Phosphorus Magnesium (1.5-2.5) mg/dL Total Bilirubin (0.2-1.0) mg/dL AST (15-37) U/L ALT (10-53) U/L Alkaline Phosphatase (45-117) U/L Total Creatine Kinase (26-192) U/L CK-MB (CK-2) (0.5-3.6) ng/mL CK-MB (CK-2) % (0.0-4.0) % Troponin I (0.02-0.05) ng/mL Total Protein (6.4-8.2) g/dL Albumin (3.4-5.0) g/dL TSH Cancelled (0.358-3.740) uIU/mL Urine Color Yellow (Yellw/Straw) Urine Clarity Cloudy H (Clear) Urine pH 8.0 (5.0-8.5) Ur Specific [place] 1.006 (1.002-1.035) Urine Protein 100 H (Neg-Trace) mg/dL Urine Glucose (UA) Negative (Negative) mg/dL Urine Ketones Negative (Negative) mg/dL Urine Occult Blood Moderate H (Negative) Urine Nitrate Negative (Negative) Urine Bilirubin Negative (Negative) Urine Urobilinogen Less than 2 (Less than 2) mg/dL Ur Leukocyte Esterase Large H (Negative) Urine RBC 51 H (0-3) /hpf Urine WBC (0-5) /hpf Urine WBC Clumps Moderate H (None) Ur Squamous Epith Cells 3 (0-5) /hpf Urine Bacteria Few H (None) /hpf Micro UA Comment Cath-culture ind Ur Microscopic Review Not Reportable Urine Culture Comments Cath-cult indicated Imaging Data Radiologist's impression: Chest X-Ray 10/10/18 11:19 CONCLUSION: No acute cardiopulmonary disease demonstrated. Head CT 10/10/18 11:19 CONCLUSION: Negative noncontrast head CT. . Abdomen/Pelvis CT 10/10/18 11:20 CONCLUSION: 1. An apparent tiny stone in the proximal left ureter but without associated hydronephrosis or hydroureter. 2. No acute abnormalities are demonstrated. 3. Numerous cysts and nonobstructing stones again seen of both kidneys. 4. Resolved free air. Discharge Plan Discharge Disposition Patient Disposition: ED Admit(ED Internal Use Only) Discharge Condition Condition: Stable Discharge Order Discharge Orders: ED Use Only Admit Order (Routine); Ordered 10/10/18 Ordered By: Christiano Mullins Discharge Details Diagnosis: Generalized weakness, UTI (urinary tract infection), Elevated CK Physicians Team ED Provider: Castillo Barber ED Midlevel Provider: Christiano Mullins Primary Care Provider: Christopher Park Rxs /Orders / Referrals /Forms Prescriptions: No Action dicyclomine 20 mg Tablet 20 mg PO TIDAC RF: 0 metoprolol tartrate 50 mg Tablet 50 mg PO BID RF: 0 vit B comp no.0-wffge-G-biotin [Hillary-Chris Rx] 1-60-300 mg-mg-mcg Tablet 1 tab PO DAILY RF: 0 docusate sodium [Colace] 100 mg Capsule 100 mg PO DAILY PRN (Reason: Constipation) RF: 0 Bacillus coagulans [Digestive Advantage] 250 million cell Tablet,Chewable 1 tab PO DAILY RF: 0 sevelamer carbonate [Renvela] 800 mg Tablet 3,200 mg PO TID RF: 0 diltiazem HCl 120 mg Capsule,Extended Release 24hr 120 mg PO DAILY Qty: 30 RF: 0 alprazolam 0.5 mg Tablet 0.5 mg PO TID PRN (Reason: Anxiety) Qty: 10 RF: 0 amiodarone 200 mg Tablet 200 mg PO DAILY RF: 0 ryspzw-caqkmpif-suxffbe [Creon] 6,000-19,000 -30,000 unit Capsule,Delayed Release(Dr/Ec) 6,000 unit TID RF: 0 cinacalcet [Sensipar] 60 mg Tablet 60 mg PO DAILY RF: 0 Status ED Status: With Doctor
[2018-10-10] MEDS ORDERED: Sodium Chlor 0.9% Inj 500 ML IV.SIG SCH (12:00)
--- NOTE | 2018-10-10 12:05 | XR ---
EXAM DATE: 10/10/2018 11:59 AM EST AGE/SEX: 68 years / Female INDICATIONS: Fever. Cough. CLINICAL DATA: This is the patient's initial encounter. Patient reports that signs and symptoms have been present for 1 day and indicates a pain score of 0/10. MEDICAL/SURGICAL HISTORY: None. Renal disease, end stage. Carcinoma, breast. Hypertension. Anem ia, diabetes. None. COMPARISON: [facility] – [place], CHEST 1V SINGLE AP, 08/07/2018. . FINDINGS: A single AP view of the chest demonstrates the lungs to be symmetrically aerated without evidence of mass, infiltrate or effusion. The cardiomediastinal contours are unremarkable. Osseous structures a re intact. There is a new, tunneled right internal jugular double lumen catheter with distal tip in the right at rium. CONCLUSION: No acute cardiopulmonary disease demonstrated. Electronically signed by: Taz Machado MD Board Certified Radiologist 10/10/2018 12:04 PM EST
[2018-10-10 12:31] LABS: Bacteria,Urine Few /hpf; Bilirubin,Urine Negative (Negative); Clarity,Urine Cloudy (Clear); Color,Urine Yellow (Yellw/Straw); Glucose,Urine (UA) Negative (Negative); Leukocyte Esterase,Urine Large (Negative); Nitrite,Urine Negative (Negative); Specific Gravity,Urine 1.006 (1.002-1.035); Squamous Epithelial Cell,Urine 3 /hpf (0-5)
[2018-10-10 12:34] LABS: Baso % (Auto) 0.5 % (0.0-2.0); Eos # (Auto) 0.2 th/mm3 (0.0-0.4); Hematocrit 37.7 % (35.0-46.0); Hemoglobin 12.4 gm/dL (11.6-15.3); Lymph # (Auto) 0.6 th/mm3 (1.0-4.8); Lymph % (Auto) 7.2 % (9.0-44.0); Mean Corpuscular HGB Conc 32.9 % (32.0-36.0); Mean Corpuscular Volume 103.4 fL (80.0-100.0); Mean Platelet Volume 8.8 fL (7.0-11.0); Mono # (Auto) 0.6 th/mm3 (0.0-0.9); Mono % (Auto) 6.6 % (0.0-8.0); Neut # (Auto) 7.1 th/mm3 (1.8-7.7); Neut % (Auto) 83.7 % (16.0-70.0); Platelet Count 145 th/mm3 (150-450); Red Blood Count 3.64 mil/mm3 (4.00-5.30); Red Cell Distribution Width 17.4 % (11.6-17.2); White Blood Count 8.4 th/mm3 (4.0-11.0)
[2018-10-10 12:56] LABS: Activated Partial Thrombo Time 23.5 sec (23.4-31.7); Prothrombin Time 10.6 sec (9.8-11.6)
--- NOTE | 2018-10-10 13:00 | CT ---
EXAM DATE: 10/10/2018 12:56 PM EST AGE/SEX: 68 years / Female INDICATIONS: Cephalgia, weakness and dizziness. CLINICAL DATA: This is the patient's initial encounter. Patient reports that signs and symptoms have been present for 1 month and indicates a pain score of 5/10. MEDICAL/SURGICAL HISTORY: Anemia. Diabetes. Renal disease, end stage. Breast cancer, afib, hyper tension, ulcers, diverticulosis. Cholecystectomy. RADIATION DOSE: 52.07 CTDI (mGy) COMPARISON: [facility] – [place], CT HEAD W/O CONTRAST, 08/18/2018. . TECHNIQUE: CT of the head without contrast. Using automated exposure control and adjustment of the mA and/or kV according to patient size, radiation dose was kept as low as reasonably achievable to ob tain optimal diagnostic quality images. DICOM format image data is available electronically for revi ew and comparison. FINDINGS: Cerebrum: The ventricles are normal for age. No evidence of midline shift, mass lesion, hemorrhage or acute infarction. No extraaxial fluid collections are seen. Posterior Fossa: The cerebellum and brainstem are intact. The 4th ventricle is midline. The cerebe llopontine angle is unremarkable. Extracranial: The visualized portion of the orbits is intact. Skull: The calvaria is intact. No evidence of skull fracture. CONCLUSION: Negative noncontrast head CT. . Electronically signed by: Taz Machado MD Board Certified Radiologist 10/10/2018 12:59 PM EST
[2018-10-10 13:05] LABS: Alanine Aminotransferase 24 U/L (10-53); Albumin 2.6 g/dL (3.4-5.0); Anion Gap 11 meq/L (5-15); Aspartate Aminotransferase 62 U/L (15-37); Blood Urea Nitrogen 15 mg/dL (7-18); Calcium 11.2 mg/dL (8.5-10.1); Chloride 98 meq/L (98-107); Glomerular Filtration Rate 8 mL/min (>89); Glucose,Random 84 mg/dL (74-106); Magnesium 1.9 mg/dL (1.5-2.5); Phosphorus 4.2 mg/dL (2.5-4.9); Sodium 135 meq/L (136-145)
--- NOTE | 2018-10-10 13:06 | CT ---
EXAM DATE: 10/10/2018 12:57 PM EST AGE/SEX: 68 years / Female INDICATIONS: Abdominal pain. CLINICAL DATA: This is the patient's initial encounter. Patient reports that signs and symptoms have been present for 1 month and indicates a pain score of 5/10. MEDICAL/SURGICAL HISTORY: Anemia. Diabetes. Renal disease, end stage. Breast cancer, afib, h ypertension, ulcers, diverticulosis. Cholecystectomy. RADIATION DOSE: 15.51 CTDI (mGy) COMPARISON: [facility] – [place] ABDOMEN & PELVIS W/O CONTRAST, 08/08/2018. . TECHNIQUE: Multiple contiguous axial images were obtained through the abdomen. Images were obtained using multiple row detector helical technique. Using automated exposure control and adjustment of the mA and/or kV according to patient size, radiation dose was kept as low as reasonably achievable to o btain optimal diagnostic quality images. DICOM format image data is available electronically for rev iew and comparison. FINDINGS: No acute abnormality seen of the liver. There is an unchanged 2 cm cyst of the left hepatic lobe. No ductal dilatation. Cholecystectomy changes are noted. Noncontrast appearance of the spleen and adrenal glands within normal limits. Scattered calcification s are seen of the pancreas. Enlarged with too numerous to count cysts again seen of both kidneys consistent with autosomal domina nt polycystic kidney disease. There are multiple subcentimeter nonobstructing stones of both kidneys. I believe there is a 2 mm stone in the proximal left ureter, series 2 image 49, but this is unchange d and without associated hydronephrosis/hydroureter. Urinary bladder is grossly unremarkable. Previously seen ascites and free intraperitoneal air have resolved. Visualized lung bases are free of infiltrate and effusion. No acute bony abnormalities are demonstrat ed. CONCLUSION: 1. An apparent tiny stone in the proximal left ureter but without associated hydronephrosis or hydro ureter. 2. No acute abnormalities are demonstrated. 3. Numerous cysts and nonobstructing stones again seen of both kidneys. 4. Resolved free air. Electronically signed by: Taz Machado MD Board Certified Radiologist 10/10/2018 1:05 PM EST
[2018-10-10 13:11] LABS: Potassium 4.3 meq/L (3.5-5.1)
[2018-10-10 13:15] LABS: Alkaline Phosphatase 106 U/L (45-117); Creatine Kinase 888 U/L (26-192); Total Protein 5.2 g/dL (6.4-8.2); Troponin I 0.02 ng/mL (0.02-0.05)
[2018-10-10 13:27] LABS: CKMB Percent 1.6 % (0.0-4.0); Creatine Kinase MB 13.8 ng/mL (0.5-3.6)
--- NOTE | 2018-10-10 14:03 | P.HPIM ---
History of Present Illness Primary Care Physician: Christopher Park History of Present Illness: Mrs. Chavez is a 68 y/o female with ESRD on HD (), type 2 DM, chronic anemia, anxiety, and hx of breast cancer. Pt was recently admitted to [facility] in [place] with ESBL peritonitis. Pt had PermCath placed during that admission and was discharged to rehab at the end of that hospitalization. She states that she has not been eating or drinking much of anything for the last few weeks. She states that she did not like the food at rehab and her appetite was poor. She was at rehab until 10/02/18 and has been home for the last week. She has been receiving HD on . She did not get dialyzed today. When she left the rehab she was using a wheelchair. She was able to use a walker to get to the bathroom but requires assistance from her to get up off the commode or out of the wheelchair. She normally urinates about 1 time per week and denies any dysuria. In the ED she had a catheterized UA performed which was abnormal and urine culture is pending. Pts labs appear that she is dehydrated and the pt feels very dehydrated. She denies any diarrhea. She feels more constipated, with no BM in 2 days. Pt has overall felt very weak. Denies any fevers or chills. She reported having an episode of vomiting in the last few days and today had had some vague lower abd discomfort. Denies any reflux, nausea, chest pain, SOB or palpitations. Pt states that she has been leaving out some of her medications at home. Typically the ones she is supposed to take with meals she has been skipping. Past medical history: Hx of peritonitis with ESBL Hx of C. difficile Anxiety Type 2 diabetes controlled by diet Hx of A. fib Chronic anemia ESRD on HD via PermCath, patient follows with Dr. Berumen GERD Diverticulosis Left breast cancer s/p radiation and lumpectomy Past Surgical history: Left breast lumpectomy 2010 Peritoneal dialysis shunt placement. Removed in 08/2018 Multiple colonoscopies EGD just done on 06/30/2017 with gastritis and esophagitis. Cholecystectomy was done openly with at age 21. D&C Social history: She is . 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 Family History: Her father at 70 of congestive heart failure, COPD. Mother at 72 of congestive heart failure, COPD Diagnosis (1) Generalized weakness: (2) Dehydration: (3) End stage renal disease on dialysis: (4) Elevated CK: Medications and Allergies Allergies Allergy/AdvReac Type Severity Reaction Status Date / Time codeine Allergy Severe NAUSEA/VOMI Verified 10/10/18 11:27 TING morphine Allergy Severe MIGRAINES Verified 10/10/18 11:27 acetaminophen Allergy Intermediate ITCHING Verified 10/10/18 11:27 latex Allergy Intermediate Rash Verified 10/10/18 11:27 oxycodone Allergy Intermediate ITCHING Verified 10/10/18 11:27 doxycycline AdvReac Severe GI UPSET Verified 10/10/18 11:27 Home Medications Medication Instructions Recorded Confirmed Type amiodarone 200 mg PO DAILY 05/13/18 10/10/18 History cinacalcet [Sensipar] 60 mg PO DAILY 05/13/18 10/10/18 History [id number]-ruskyktj-lgxosrj [Creon] 6,000 unit TID 05/13/18 10/10/18 History Bacillus coagulans [Digestive 1 tab PO DAILY 08/07/18 10/10/18 History Advantage] dicyclomine 20 mg PO TIDAC 08/07/18 10/10/18 History docusate sodium [Colace] 100 mg PO DAILY PRN 08/07/18 10/10/18 History metoprolol tartrate 50 mg PO BID 08/07/18 10/10/18 History sevelamer carbonate [Renvela] 3,200 mg PO TID 08/07/18 10/10/18 History vit B comp no.5-hrehl-I-biotin 1 tab PO DAILY 08/07/18 10/10/18 History [Hillary-Chris Rx] Active Medications: Active Medications Al Hydroxide/Mg Hydroxide (Milk Of Magnned Liq) 30 ml PO Q12H PRN PRN Reason: Mild Constipation Ondansetron HCl (Zofran Inj) 4 mg IV.PUSH Q6H PRN PRN Reason: NAUSEA OR VOMITING Senna/Docusate Sodium (Marta-Colace) 1 tab PO BID TAD Sodium Chloride (Ns Flush) 2 ml IV.FLUSH BID TAD Sodium Chloride (Ns Flush) 2 ml IV.FLUSH PRN PRN PRN Reason: FLUSH AFTER USING IV ACCESS Physical Exam Vital signs: Last Vital Signs Temp 97.7 F 10/10/18 11:02 Pulse 69 10/10/18 13:35 Resp 20 10/10/18 13:35 BP 130/73 10/10/18 13:35 Pulse Ox 99 10/10/18 13:35 Narrative: GENERAL: NAD, Awake and alert SKIN: Warm and dry. HEENT: Atraumatic. Normocephalic. Pupils equal and round. No scleral icterus. No injection or drainage. No nasal bleeding or discharge. Mucous membranes pink and moist. NECK: Trachea midline. No JVD. CARDIO: Regular. RESP: No accessory muscle use. Clear to auscultation. Breath sounds equal bilaterally. ABD: +BS, soft, non-tender, nondistended. Two wound on abdomen, one in the lower left side with clean dressing and packing in place, no erythema or drainage noted. Other wound to the right of midline and also with clean dressing and packing in place, no erythema or drainage noted. EXT: Extremities without clubbing, cyanosis, or edema. No obvious deformities. NEURO: Awake and alert. No obvious cranial nerve deficits. Motor grossly within normal limits. Five out of 5 muscle strength in the arms and legs. Normal speech. PSYCH: Appropriate mood and affect; insight and judgment normal. Results Labs CBC & Chem 7: 10/10/18 11:45 10/10/18 11:45 Imaging Chest X-Ray 10/10/18 11:19 CONCLUSION: No acute cardiopulmonary disease demonstrated. Head CT 10/10/18 11:19 CONCLUSION: Negative noncontrast head CT. Abdomen/Pelvis CT 10/10/18 11:20 CONCLUSION: 1. An apparent tiny stone in the proximal left ureter but without associated hydronephrosis or hydroureter. 2. No acute abnormalities are demonstrated. 3. Numerous cysts and nonobstructing stones again seen of both kidneys. 4. Resolved free air. Caprini VTE Risk Assessment Caprini VTE Risk Assessment: Moderate/High Risk (score >= 2) Caprini Risk Assessment Model: Point Value = 1 Point Value = 2 Point Value = 3 Point Value = 5 Age 41-60 Minor surgery BMI > 25 kg/m2 Swollen legs Varicose veins or History of unexplained or recurrent spontaneous Oral contraceptives or hormone replacement Sepsis (< 1 month) Serious lung disease, including pneumonia (< 1 month) Abnormal pulmonary function Acute myocardial infarction Congestive heart failure (< 1 month) History of inflammatory bowel disease Medical patient at bed rest Age 61-74 Arthroscopic surgery Major open surgery (> 45 min) Laparoscopic surgery (> 45 min) Malignancy Confined to bed (> 72 hours) Immobilizing plaster cast Central venous access Age >= 75 History of VTE Family history of VTE Factor V Leiden Prothrombin [id number] Lupus anticoagulant Anticardiolipin antibodies Elevated serum homocysteine Heparin-induced thrombocytopenia Other congenital or acquired thrombophilia Stroke (< 1 month) Elective arthroplasty Hip, pelvis, or leg fracture Acute spinal cord injury (< 1 month) Prophylaxis Regimen: Total Risk Factor Score Risk Level Prophylaxis Regimen 0-1 Low Early ambulation 2 Moderate Order ONE of the following: *Sequential Compression Device (SCD) *Heparin 5000 units SQ BID 3-4 Higher Order ONE of the following medications: *Heparin 5000 units SQ TID *Enoxaparin/Lovenox 40 mg SQ daily (WT < 150 kg, CrCl > 30 mL/min) *Enoxaparin/Lovenox 30 mg SQ daily (WT < 150 kg, CrCl > 10-29 mL/min) *Enoxaparin/Lovenox 30 mg SQ BID (WT < 150 kg, CrCl > 30 mL/min) AND/OR *Sequential Compression Device (SCD) 5 or more Highest Order ONE of the following medications: *Heparin 5000 units SQ TID (Preferred with Epidurals) *Enoxaparin/Lovenox 40 mg SQ daily (WT < 150 kg, CrCl > 30 mL/min) *Enoxaparin/Lovenox 30 mg SQ daily (WT < 150 kg, CrCl > 10-29 mL/min) *Enoxaparin/Lovenox 30 mg SQ BID (WT < 150 kg, CrCl > 30 mL/min) AND *Sequential Compression Device (SCD) Assessment and Plan Assessment (1) Generalized weakness: Code(s): R53.1 - Weakness Status: Acute (2) Dehydration: Code(s): E86.0 - Dehydration Status: Acute (3) End stage renal disease on dialysis: Code(s): N18.6 - End stage renal disease; Z99.2 - Dependence on renal dialysis Status: Chronic (4) Elevated CK: Code(s): R74.8 - Abnormal levels of other serum enzymes Status: Acute Plan Generalized weakness Dehydration Elevated CK - Pt is a 68 y/o female with ESRD on HD (), type 2 DM, chronic anemia, anxiety, and hx of breast cancer. Pt was recently admitted to [facility] in [place] with ESBL peritonitis. Pt had PermCath placed during that admission and was discharged to rehab at the end of that hospitalization. She states that she has not been eating or drinking much of anything for the last few weeks. She states that she did not like the food at rehab and her appetite has been poor. She was at rehab until 10/02/18 and has been home for the last week. - In the ED she had a catheterized UA performed which was abnormal and urine culture is pending. - Pt was given a dose of Rocephin in the ED - Blood cultures drawn in the ED are pending - Cont. with Cefepime and await culture results - Pts labs appear dehydrated as pt clinically appears dehydrated - Chest X-Ray (10/10/18) -->No acute cardiopulmonary disease demonstrated. - CT Abdomen/Pelvis (10/10/18) 1. An apparent tiny stone in the proximal left ureter but without associated hydronephrosis or hydroureter. 2. No acute abnormalities are demonstrated. 3. Numerous cysts and nonobstructing stones again seen of both kidneys. 4. Resolved free air. - Encourage oral intake - Obtain updated medication list from the pts rehab - PT evaluation - Encourage oral intake, add supplements with meals - Supportive care ESRD on HD - She has been receiving HD on . She did not get dialyzed today. - Consult to Dr. Berumen, her polysomnographic technologist - Repeat labs in AM, including CK and CKMB profile Hx A. fib - Cont. Amiodarone 200mg daily, metoprolol 50mg BID, and Cardizem CD 120mg daily Type 2 diabetes controlled by diet - Renal diet ordered due to ESRD Chronic anemia likely secondary to end-stage renal disease on peritoneal dialysis - Labs at admission with Hgb 12.4 but pt appears dehydrated so this is likely hemoconcentration - Monitor labs DVT prophylaxis with SCDs
[2018-10-10] MEDS ORDERED: Albumin Human 25% Inj 100 ML IV.SIG PRN (14:13)
[2018-10-10] MEDS ORDERED: Sod Chloride 0.9% Inj 1,000 ML IV.CONT PRN (14:13)
[2018-10-10] MEDS ORDERED: Gelatin 12 MM/7 MM Topical Foam TOPICAL PRN (14:13)
[2018-10-10] MEDS ORDERED: Heparin 10,000 UNITS/10 ML Vial (for IV use) OTHER PRN (14:13)
[2018-10-10] MEDS ORDERED: Sod Chloride 0.9% Inj 1,000 ML OTHER PRN ×2 (14:13)
[2018-10-10] MEDS: Heparin 10,000 UNITS/10 ML Vial (for IV use) OTHER PRN (16:59)
--- NOTE | 2018-10-10 17:38 | P.CONNP ---
History of Present Illness Service: Nephrology Consult date: 10/10/18 Requesting Physician: Justin Caballero Reason for Consult: End-stage renal disease management Primary Care Provider: Christopher Park Chief Complaint: Weakness History of Present Illness: Patient is a 68-year-old female with history of polycystic kidney disease, end- stage renal disease, history of diabetes, C. difficile infection in the past, she has peritonitis and peritoneal dialysis catheter was removed 2 months ago, she is on hemodialysis however she is feeling weak tired and did not want to go to the dialysis as she could not get out of her bed, patient states her appetite is poor and she lost strength in her legs. Review of Systems Constitutional: Reports anorexia, Reports body ache(s), Reports lack of energy, Reports weakness Eyes: Denies blind spots, Denies blurry vision, Denies bulging eyes, Denies change in vision, Denies double vision, Denies discharge, Denies dry eyes, Denies floaters, Denies irritation, Denies itchy eyes, Denies loss of vision, Denies pain, Denies requires corrective lenses, Denies sensitivity to light, Denies other Ears, Nose, Mouth, and Throat: Denies abnormal hearing, Denies bleeding gums, Denies bad breath, Denies change in voice, Denies dental pain, Denies difficulty swallowing, Denies dizziness, Denies dry mouth, Denies ear discharge , Denies ear pain, Denies facial pain, Denies headache(s), Denies hearing loss, Denies hoarseness, Denies lip swelling, Denies nosebleed, Denies mouth lesions, Denies mouth pain, Denies nasal congestion, Denies nasal discharge, Denies nasal obstruction, Denies nasal trauma, Denies neck lump, Denies neck pain, Denies nose pain, Denies pain with swallowing, Denies poor balance, Denies post nasal drip, Denies ringing in the ears, Denies sinus pain, Denies sinus pressure , Denies sore throat, Denies throat swelling, Denies tongue swelling, Denies other Cardiovascular: Reports shortness of breath with activity Respiratory: Reports shortness of breath Gastrointestinal: Reports change in bowel habits, Reports feeling full early Genitourinary: Reports absent period Musculoskeletal: Reports back pain, Reports decreased muscle mass Skin/Breast: Reports dry skin Neurologic: Reports weakness Psychiatric: Reports depression Endocrine: Denies cold intolerance, Denies excessive sweating, Denies flushing, Denies heat intolerance, Denies increased hunger, Denies increased thirst, Denies increased urination, Denies rapid, pounding, or irregular heartbeat, Denies other Hematologic/Lymphatic: Denies easy bleeding, Denies easy bruising, Denies enlarged lymph nodes, Denies other Allergic/Immunologic: Denies GI upset with certain foods, Denies hives, Denies itchy eyes, Denies lip swelling, Denies seasonal runny nose, Denies throat swelling, Denies tongue swelling, Denies wheezing, Denies other PMFSH - History History Provided By: Patient - Medical History Medical History: Medical History (Last Reviewed 10/10/18 @ 17:34 by Josh Berumen MD) Anemia Diabetes ESRD (end stage renal disease) H/O History of breast cancer History of diverticulitis History of infection due to ESBL Escherichia coli Onset Date: ~08/07/18 History of toe fracture History of wrist fracture Hypertension PKD (polycystic kidney disease) Paroxysmal A-fib Ulcer - Surgical History Surgical History: Surgical History (Last Reviewed 10/10/18 @ 17:34 by Josh Berumen MD) History of lumpectomy of left breast Hx of cholecystectomy - Social History I have reviewed the patient's Social History: Yes - Tobacco History Second Hand Smoke Exposure: No Smoking Status: Never smoker - Alcohol History How Often Do You Have a Drink Containing Alcohol: Never - Substance Use History Substance History: No History of Abuse - Travel History Recent Travel in the [place] Within the Last 8 Weeks: No Recent Travel Out of the Country Within the Last 8 Weeks: No - Immunization History Tetanus Immunization: <5 Years Medications and Allergies Active Medications: Active Medications Al Hydroxide/Mg Hydroxide (Milk Of Jose Lizulma) 30 ml PO Q12H PRN PRN Reason: Mild Constipation Alprazolam (Xanax) 0.5 mg PO TID PRN PRN Reason: Anxiety Amiodarone HCl (Cordarone) 200 mg PO DAILY TAD Cinacalcet (Sensipar) 60 mg PO DAILY TAD Clonidine HCl (Catapres) 0.1 mg PO UNSCH PRN PRN Reason: SEE LABEL COMMENTS Diltiazem HCl (Cardizem Cd 24hr) 120 mg PO DAILY TAD Diphenhydramine HCl (Benadryl) 25 mg PO UNSCH PRN PRN Reason: SEE LABEL COMMENTS Gelatin (Gelfoam 12 Mm/7 Mm Topical) 1 foam TOPICAL PRN PRN PRN Reason: help stop bleeding from site Gentamicin Sulfate (Gentamicin Inj) 20 mg OTHER WITH DIALYSIS PRN PRN Reason: Dwell Gentamycin Lock Last Admin: 10/10/18 16:59 Dose: 20 mg Heparin Sodium (Porcine) (Heparin Inj) 8,000 units OTHER WITH DIALYSIS PRN PRN Reason: for machine prime Heparin Sodium (Porcine) (Heparin Inj) 1,000 units OTHER WITH DIALYSIS PRN PRN Reason: Dwell Heparin to Fill Catheter Last Admin: 10/10/18 16:59 Dose: 1,000 units Sodium Chloride (Ns Inj) 1,000 mls @ 0 mls/hr OTHER .Q0M PRN PRN Reason: for prime and rinse back Last Admin: 10/10/18 16:58 Dose: 300 mls/hr Sodium Chloride (Ns Inj) 1,000 mls @ 200 mls/hr OTHER .Q5H PRN PRN Reason: for dialyzer flush PRN Sodium Chloride (Ns Inj) 1,000 mls @ 0 mls/hr IV.CONT .Q0M PRN PRN Reason: hypotension / volume replace Albumin Human (Flexbumin 25% Inj) 100 mls @ 60 mls/hr IV.SIG WITH DIALYSIS PRN PRN Reason: hypotension / volume replace Last Admin: 10/10/18 16:57 Dose: 60 mls/hr Cefepime HCl 1,000 mg/ Sodium (Chloride) 100 mls @ 200 mls/hr IV.SIG Q24H TAD Mannitol (Mannitol Inj) 12.5 gm IV.PUSH UNSCH PRN PRN Reason: hypotension / volume replace Metoprolol Tartrate (Lopressor) 50 mg PO BID TAD Mirtazapine (Remeron) 30 mg PO DAILY TAD Multivitamins/Minerals (Ocuvite With Lutein) 1 tab PO DAILY TAD Nitroglycerin (Nitrostat Sl) 0.4 mg SL Q5M PRN PRN Reason: CHEST PAIN Ondansetron HCl (Zofran Inj) 4 mg IV.PUSH Q6H PRN PRN Reason: NAUSEA OR VOMITING Ondansetron HCl (Zofran Inj) 4 mg IV.PUSH UNSCH PRN PRN Reason: NAUSEA OR VOMITING Pom: (Bacillus Coagulans [Digestive Advantage] 1 Tab) 0 each PO DAILY TAD Senna/Docusate Sodium (Marta-Colace) 1 tab PO BID TAD Sevelamer Carbonate (Renvela) 3,200 mg PO TID TAD Sodium Chloride (Ns Flush) 2 ml IV.FLUSH BID TAD Sodium Chloride (Ns Flush) 2 ml IV.FLUSH PRN PRN PRN Reason: FLUSH AFTER USING IV ACCESS Sodium Chloride (Ns Flush) 5 ml IV.FLUSH PRN PRN PRN Reason: flush each lumen during HD Allergies Allergy/AdvReac Type Severity Reaction Status Date / Time codeine Allergy Severe NAUSEA/VOMI Verified 10/10/18 11:27 TING morphine Allergy Severe MIGRAINES Verified 10/10/18 11:27 acetaminophen Allergy Intermediate ITCHING Verified 10/10/18 11:27 latex Allergy Intermediate Rash Verified 10/10/18 11:27 oxycodone Allergy Intermediate ITCHING Verified 10/10/18 11:27 doxycycline AdvReac Severe GI UPSET Verified 10/10/18 11:27 Home Medications Medication Instructions Recorded Confirmed Type amiodarone 200 mg PO DAILY 05/13/18 10/10/18 History cinacalcet [Sensipar] 60 mg PO DAILY 05/13/18 10/10/18 History Bacillus coagulans [Digestive 1 tab PO DAILY 08/07/18 10/10/18 History Advantage] dicyclomine 20 mg PO TIDAC 08/07/18 10/10/18 History docusate sodium [Colace] 100 mg PO DAILY PRN 08/07/18 10/10/18 History metoprolol tartrate 50 mg PO BID 08/07/18 10/10/18 History sevelamer carbonate [Renvela] 3,200 mg PO QID 08/07/18 10/10/18 History B complex with C#20-folic acid 1 cap PO DAILY 10/10/18 10/10/18 History [Triphrocaps] amiodarone 200 mg PO DAILY 10/10/18 10/10/18 History linezolid 600 mg PO Q12H 10/10/18 10/10/18 History mmzzcj-qwlklocz-ahvbtuq [Creon] 6,000 units PO TID 10/10/18 10/10/18 History mirtazapine [Remeron] 30 mg PO DAILY 10/10/18 10/10/18 History tramadol 50 mg PO Q6H PRN 10/10/18 10/10/18 History Exam Vital signs: Vital Signs 10/10/18 11:02 10/10/18 11:06 10/10/18 11:19 Temperature 97.7 F Pulse Rate 80 70 68 Respiratory Rate 18 17 Blood Pressure 145/63 H 144/76 H Pulse Oximetry 95 100 100 10/10/18 13:35 Temperature Pulse Rate 69 Respiratory Rate 20 Blood Pressure 130/73 Pulse Oximetry 99 Intake & Output 10/09/18 10/10/18 10/10/18 18:59 06:59 18:59 Intake Total 600 / 600 Balance 600 / 600 Weight 97.522 kg Intake: IV 600 / 600 NS Inj 500 ML @ 1000 mls/hr IV. 500 / 500 SIG BOLUS TAD Rx#:[id number] Rocephin Inj 1,000 MG In NS Inj 100 / 100 100 ML @ 200 mls/hr IV.SIG ONCE ONE Rx#:[id number] Narrative: GENERAL: Well-nourished, well-developed patient. SKIN: Warm and dry. HEAD: Normocephalic. EYES: No scleral icterus. No injection or drainage. NECK: Supple, trachea midline. No JVD or lymphadenopathy. CARDIOVASCULAR: Regular rate and rhythm without murmurs, gallops, or rubs. RESPIRATORY: Breath sounds equal bilaterally. No accessory muscle use. GASTROINTESTINAL: Abdomen soft, non-tender, nondistended. EXTREMITIES: No edema dry skin NEUROLOGICAL: Awake, alert, and oriented x 3. Non-focal. Results - Lab Results 10/10/18 11:45 10/10/18 11:45 Most recent lab results Calcium 11.2 mg/dL (8.5-10.1) H 10/10/18 11:45 Phosphorus 4.2 mg/dL (2.5-4.9) 10/10/18 11:45 Magnesium 1.9 mg/dL (1.5-2.5) 10/10/18 11:45 Assessment and Plan - Assessment (1) End stage renal disease on dialysis Code(s): N18.6 - End stage renal disease; Z99.2 - Dependence on renal dialysis Status: Chronic Plan: Patient is seen during hemodialysis 2.5 L of ultrafiltration, as blood pressure was low, continue supportive care, give her Periactin for appetite stimulation Patient calcium level elevated check parathyroid hormone Continue to monitor (2) Hypercalcemia Code(s): E83.52 - Hypercalcemia Status: Acute Plan: Patient has hyperparathyroidism check PTH level (3) Dehydration Code(s): E86.0 - Dehydration Status: Acute Plan: Encourage hydration (4) UTI (urinary tract infection) Code(s): N39.0 - Urinary tract infection, site not specified Status: Acute Plan: Patient started on cefepime, she has history of ESBL E. coli peritonitis (5) Generalized weakness Code(s): R53.1 - Weakness Status: Acute
--- NOTE | 2018-10-10 17:47 | ECG ---
Date Performed: 10/10/2018 Time Performed: 12:20:34 PTAGE: 68 years EKG: Sinus rhythm LOW QRS VOLTAGE IN PRECORDIAL LEADS POSSIBLE ANTERIOR MYOCARDIAL INFARCTION INFERIOR MYOCARDIAL INFA RCTION ABNORMAL ECG WARNING: DATA QUALITY MAY AFFECT INTERPRETATION PREVIOUS TRACING : 08/07/2018 23.03 DOCTOR: Filemon Dupree Interpretating Date/Time 10/10/2018 17:45:48
[2018-10-10] MEDS: Senna/Docusate Sodium 8.6/50 MG Tablet PO SCH (20:31)
[2018-10-10] MEDS: Metoprolol Tartrate 50 MG Tablet PO SCH (20:32)
[2018-10-10] MEDS: BACILLUS COAGULANS PO SCH (20:33)
[2018-10-11 08:28] LABS: Baso % (Auto) 0.6 % (0.0-2.0); Eos # (Auto) 0.2 th/mm3 (0.0-0.4); Eos % (Auto) 3.3 % (0.0-4.0); Hematocrit 34.8 % (35.0-46.0); Hemoglobin 11.3 gm/dL (11.6-15.3); Lymph # (Auto) 0.6 th/mm3 (1.0-4.8); Lymph % (Auto) 10.4 % (9.0-44.0); Mean Corpuscular HGB Conc 32.5 % (32.0-36.0); Mean Corpuscular Hemoglobin 34.6 pg (27.0-34.0); Mean Corpuscular Volume 106.5 fL (80.0-100.0); Mean Platelet Volume 8.8 fL (7.0-11.0); Mono # (Auto) 0.5 th/mm3 (0.0-0.9); Mono % (Auto) 8.3 % (0.0-8.0); Neut # (Auto) 4.7 th/mm3 (1.8-7.7); Neut % (Auto) 77.4 % (16.0-70.0); Platelet Count 127 th/mm3 (150-450); Red Blood Count 3.27 mil/mm3 (4.00-5.30); Red Cell Distribution Width 17.5 % (11.6-17.2); White Blood Count 6.1 th/mm3 (4.0-11.0)
--- NOTE | 2018-10-11 08:45 | P.PNIM ---
Subjective Interval history: Pt complains of pain on her buttock where she has a known pressure sore She has been using Tramadol PRN for the pain at home Pt has been eating and drinking some Denies any chest pain, SOB, fevers or chills. Physical Exam Vital signs: Last Vital Signs Temp 98.0 F 10/11/18 08:00 Pulse 62 10/11/18 08:00 Resp 18 10/11/18 08:00 BP 121/60 10/11/18 08:00 Pulse Ox 97 10/11/18 08:00 Narrative: GENERAL: NAD, Awake and alert CARDIO: Regular. RESP: Clear to auscultation. Breath sounds equal bilaterally. ABD: +BS, soft, non-tender, nondistended. Two wound on abdomen, one in the lower left side with clean dressing and packing in place, no erythema or drainage noted. Other wound to the right of midline and also with clean dressing and packing in place, no erythema or drainage noted. EXT: No edema. No obvious deformities. Results Labs CBC & Chem 7: 10/11/18 07:36 10/11/18 07:36 Imaging Chest X-Ray 10/10/18 11:19 CONCLUSION: No acute cardiopulmonary disease demonstrated. Head CT 10/10/18 11:19 CONCLUSION: Negative noncontrast head CT. Abdomen/Pelvis CT 10/10/18 11:20 CONCLUSION: 1. An apparent tiny stone in the proximal left ureter but without associated hydronephrosis or hydroureter. 2. No acute abnormalities are demonstrated. 3. Numerous cysts and nonobstructing stones again seen of both kidneys. 4. Resolved free air. Assessment and Plan Assessment (1) End stage renal disease on dialysis: Code(s): N18.6 - End stage renal disease; Z99.2 - Dependence on renal dialysis Status: Chronic (2) Hypercalcemia: Code(s): E83.52 - Hypercalcemia Status: Acute (3) Dehydration: Code(s): E86.0 - Dehydration Status: Acute (4) UTI (urinary tract infection): Code(s): N39.0 - Urinary tract infection, site not specified Status: Acute (5) Generalized weakness: Code(s): R53.1 - Weakness Status: Acute Plan Generalized weakness Dehydration Elevated CK - Pt is a 68 y/o female with ESRD on HD (), type 2 DM, chronic anemia, anxiety, and hx of breast cancer. Pt was recently admitted to [facility] [place] in 08/2018 with ESBL peritonitis. Pt had PermCath placed during that admission and was discharged to rehab at the end of that hospitalization. She states that she has not been eating or drinking much of anything for the last few weeks. She states that she did not like the food at rehab and her appetite has been poor. She was at rehab until 10/02/18 and has been home for the last week. - In the ED she had a catheterized UA performed which was abnormal and urine culture is pending. - Pt was given a dose of Rocephin in the ED - Blood cultures drawn in the ED are pending - Cont. with Cefepime and await culture results - Pts labs appear dehydrated as pt clinically appears dehydrated - Chest X-Ray (10/10/18) -->No acute cardiopulmonary disease demonstrated. - CT Abdomen/Pelvis (10/10/18) 1. An apparent tiny stone in the proximal left ureter but without associated hydronephrosis or hydroureter. 2. No acute abnormalities are demonstrated. 3. Numerous cysts and nonobstructing stones again seen of both kidneys. 4. Resolved free air. - PT evaluation - Encourage oral intake, add supplements with meals - Supportive care ESRD on HD - She has been receiving HD on . - Consulted to Dr. Berumen, her telephone collector and she underwent HD on 10/10/18 - Awaiting repeat labs this AM, including CK and CKMB profile Hx A. fib - Cont. Amiodarone 200mg daily, metoprolol 50mg BID, and Cardizem CD 120mg daily Type 2 diabetes controlled by diet - Renal diet ordered due to ESRD Chronic anemia likely secondary to end-stage renal disease on peritoneal dialysis - Labs at admission with Hgb 12.4 but pt appears dehydrated so this is likely hemoconcentration - Awaiting repeat labs today DVT prophylaxis with SCDs Attending Attestation Patient examined. Assessment and plan formulated with Sarah Tesfaye PA-C. I agree with the above. Progress Note: Quality VTE Deep Vein Thrombosis/Pulmonary Embolism Present on Admission: No _ (1) UTI (urinary tract infection) Qualifiers: Encounter type: Hematuria presence: Indwelling urinary catheter type: Urinary tract infection type:
[2018-10-11 09:00] LABS: Alanine Aminotransferase 18 U/L (10-53); Albumin 2.8 g/dL (3.4-5.0); Anion Gap 7 meq/L (5-15); Aspartate Aminotransferase 21 U/L (15-37); Blood Urea Nitrogen 11 mg/dL (7-18); Calcium 10.6 mg/dL (8.5-10.1); Carbon Dioxide 31.2 meq/L (21.0-32.0); Chloride 102 meq/L (98-107); Glomerular Filtration Rate 11 mL/min (>89); Glucose,Random 71 mg/dL (74-106); Potassium 4.1 meq/L (3.5-5.1); Sodium 140 meq/L (136-145)
[2018-10-11 09:13] LABS: Alkaline Phosphatase 92 U/L (45-117); Total Protein 5.2 g/dL (6.4-8.2)
[2018-10-11 09:14] LABS: Creatine Kinase 21 U/L (26-192)
[2018-10-11] MEDS: Mirtazapine 15 MG Tablet PO SCH (10:58)
[2018-10-11] MEDS: Vitamins A,C,E/Lutein/Minerals Tablet PO SCH (10:58)
[2018-10-11] MEDS: Metoprolol Tartrate 50 MG Tablet PO SCH ×2 (10:58→20:30)
[2018-10-11] MEDS: dilTIAZem CD 120 MG Capsule PO SCH (10:59)
[2018-10-11] MEDS: Amiodarone 200 MG Tablet PO SCH (10:59)
[2018-10-11] MEDS: Senna/Docusate Sodium 8.6/50 MG Tablet PO SCH ×2 (10:59→20:30)
[2018-10-11] MEDS: BACILLUS COAGULANS PO SCH (12:01)
--- NOTE | 2018-10-11 21:52 | P.PNNP ---
Subjective Interval history: Patient feels better but has soreness in the buttock area Physical Exam Vital signs: Vital Signs 10/10/18 23:38 10/11/18 03:32 10/11/18 07:18 Temperature 98.3 F 98.1 F Pulse Rate 63 72 Respiratory Rate 12 12 Blood Pressure 119/64 118/58 L Pulse Oximetry 99 96 96 10/11/18 08:00 10/11/18 12:00 10/11/18 20:15 Temperature 98.0 F 98.4 F Pulse Rate 62 66 62 Respiratory Rate 18 18 16 Blood Pressure 121/60 135/65 137/66 Pulse Oximetry 97 96 93 L Intake & Output 10/11/18 10/11/18 10/12/18 06:59 18:59 06:59 Intake Total 1200 / 1200 750 / 750 100 / 100 Balance 1200 / 1200 750 / 750 100 / 100 Intake: IV 1200 / 1200 100 / 100 Flexbumin 25% Inj 100 ML @ 60 100 / 100 mls/hr IV.SIG WITH DIALYSIS PRN Rx#:[id number] Maxipime Inj 1,000 MG In NS Inj 100 / 100 100 / 100 100 ML @ 200 mls/hr IV.SIG Q24H TAD Rx#:[id number] NS Inj 1,000 ML @ As Directed 1000 / 1000 OTHER .Q0M PRN Rx#:[id number] Oral 750 / 750 Other: # Voids 0 2 Date of Last Bowel Movement 10/11/18 10/11/18 Narrative: GENERAL: Well-nourished, well-developed patient. SKIN: Warm and dry. HEAD: Normocephalic. EYES: No scleral icterus. No injection or drainage. NECK: Supple, trachea midline. No JVD or lymphadenopathy. CARDIOVASCULAR: Regular rate and rhythm without murmurs, gallops, or rubs. RESPIRATORY: Breath sounds equal bilaterally. No accessory muscle use. GASTROINTESTINAL: Abdomen soft, non-tender, nondistended. EXTREMITIES: No edema dry skin NEUROLOGICAL: Awake, alert, and oriented x 3. Non-focal. Assessment and Plan - Assessment (1) End stage renal disease on dialysis Code(s): N18.6 - End stage renal disease; Z99.2 - Dependence on renal dialysis Status: Chronic Plan: Patient had hemodialysis yesterday 2.5 L of ultrafiltration,continue supportive care, give her Periactin for appetite stimulation Patient calcium level elevated check parathyroid hormone Continue to monitor (2) Hypercalcemia Code(s): E83.52 - Hypercalcemia Status: Acute Plan: Patient has hyperparathyroidism check PTH level (3) Dehydration Code(s): E86.0 - Dehydration Status: Acute Plan: Encourage hydration (4) UTI (urinary tract infection) Code(s): N39.0 - Urinary tract infection, site not specified Status: Acute Plan: Patient started on cefepime, she has history of ESBL E. coli peritonitis (5) Generalized weakness Code(s): R53.1 - Weakness Status: Acute
[2018-10-12 06:16] LABS: Baso # (Auto) 0.1 th/mm3 (0.0-0.2); Baso % (Auto) 0.7 % (0.0-2.0); Eos # (Auto) 0.2 th/mm3 (0.0-0.4); Eos % (Auto) 2.9 % (0.0-4.0); Hematocrit 36.1 % (35.0-46.0); Lymph # (Auto) 0.8 th/mm3 (1.0-4.8); Lymph % (Auto) 10.4 % (9.0-44.0); Mean Corpuscular HGB Conc 33.2 % (32.0-36.0); Mean Corpuscular Hemoglobin 34.9 pg (27.0-34.0); Mean Corpuscular Volume 104.9 fL (80.0-100.0); Mean Platelet Volume 8.8 fL (7.0-11.0); Mono # (Auto) 0.6 th/mm3 (0.0-0.9); Mono % (Auto) 8.5 % (0.0-8.0); Neut # (Auto) 5.9 th/mm3 (1.8-7.7); Neut % (Auto) 77.5 % (16.0-70.0); Platelet Count 116 th/mm3 (150-450); Red Blood Count 3.44 mil/mm3 (4.00-5.30); Red Cell Distribution Width 16.9 % (11.6-17.2); White Blood Count 7.6 th/mm3 (4.0-11.0)
[2018-10-12 06:51] LABS: Calcium 11.8 mg/dL (8.5-10.1); Carbon Dioxide 31.2 meq/L (21.0-32.0); Potassium 4.1 meq/L (3.5-5.1)
[2018-10-12 07:14] LABS: Albumin 2.6 g/dL (3.4-5.0)
[2018-10-12 07:20] LABS: Calcium-Albumin Corrected 12.9 mg/dL (8.5-10.1)
--- NOTE | 2018-10-12 08:12 | P.PNIM ---
Subjective Interval history: Pt reports that she was able to eat some of her lunch and dinner yesterday without any further vomiting but she wants to stay with full liquid diet. Denies any abd pain, diarrhea, or reflux. Afebrile Physical Exam Vital signs: Last Vital Signs Temp 98.8 F 10/12/18 05:00 Pulse 55 L 10/12/18 05:00 Resp 18 10/12/18 05:00 BP 151/74 H 10/12/18 05:00 Pulse Ox 97 10/12/18 05:00 Narrative: GENERAL: NAD, Awake and alert CARDIO: Regular. RESP: Clear to auscultation. Breath sounds equal bilaterally. ABD: +BS, soft, non-tender, nondistended. Two wound on abdomen, one in the lower left side with clean dressing and packing in place, no erythema or drainage noted. Other wound to the right of midline and also with clean dressing and packing in place, no erythema or drainage noted. EXT: No edema. No obvious deformities. Results Labs CBC & Chem 7: 10/12/18 04:30 10/12/18 04:30 Imaging Chest X-Ray 10/10/18 11:19 CONCLUSION: No acute cardiopulmonary disease demonstrated. Head CT 10/10/18 11:19 CONCLUSION: Negative noncontrast head CT. Abdomen/Pelvis CT 10/10/18 11:20 CONCLUSION: 1. An apparent tiny stone in the proximal left ureter but without associated hydronephrosis or hydroureter. 2. No acute abnormalities are demonstrated. 3. Numerous cysts and nonobstructing stones again seen of both kidneys. 4. Resolved free air. Assessment and Plan Assessment (1) End stage renal disease on dialysis: Code(s): N18.6 - End stage renal disease; Z99.2 - Dependence on renal dialysis Status: Chronic (2) Hypercalcemia: Code(s): E83.52 - Hypercalcemia Status: Acute (3) Dehydration: Code(s): E86.0 - Dehydration Status: Acute (4) UTI (urinary tract infection): Code(s): N39.0 - Urinary tract infection, site not specified Status: Acute (5) Generalized weakness: Code(s): R53.1 - Weakness Status: Acute Plan Generalized weakness Dehydration Elevated CK - Pt is a 68 y/o female with ESRD on HD (), type 2 DM, chronic anemia, anxiety, and hx of breast cancer. Pt was recently admitted to [facility] [place] in 08/2018 with ESBL peritonitis. Pt had PermCath placed during that admission and was discharged to rehab at the end of that hospitalization. She states that she has not been eating or drinking much of anything for the last few weeks. She states that she did not like the food at rehab and her appetite has been poor. She was at rehab until 10/02/18 and has been home for the last week. - In the ED she had a catheterized UA performed which was abnormal and urine culture with Strep Sp - Pt was given a dose of Rocephin in the ED - Blood cultures with NGTD - Cont. with Cefepime and await culture results - Pts labs appear dehydrated as pt clinically appears dehydrated - Chest X-Ray (10/10/18) -->No acute cardiopulmonary disease demonstrated. - CT Abdomen/Pelvis (10/10/18) 1. An apparent tiny stone in the proximal left ureter but without associated hydronephrosis or hydroureter. 2. No acute abnormalities are demonstrated. 3. Numerous cysts and nonobstructing stones again seen of both kidneys. 4. Resolved free air. - PT daily - Encourage oral intake, add supplements with meals, diet decreased to full liquids on 10/11 due to N/V - Zofran PRN prior to meals - Supportive care ESRD on HD - She has been receiving HD on . - Consulted to Dr. Berumen, her athletics teacher and she underwent HD on 10/10/18 - Monitor labs Hx A. fib - Cont. Amiodarone 200mg daily, metoprolol 50mg BID, and Cardizem CD 120mg daily Type 2 diabetes controlled by diet - Renal diet back down to full liquids on 10/11 Chronic anemia likely secondary to end-stage renal disease on peritoneal dialysis - Labs at admission with Hgb 12.4 but pt appears dehydrated so this is likely hemoconcentration - Repeat labs are stable DVT prophylaxis with SCDs Progress Note: Quality VTE Deep Vein Thrombosis/Pulmonary Embolism Present on Admission: No _ (1) UTI (urinary tract infection) Qualifiers: Encounter type: Hematuria presence: Indwelling urinary catheter type: Urinary tract infection type:
[2018-10-12] MEDS: Vitamins A,C,E/Lutein/Minerals Tablet PO SCH (10:18)
[2018-10-12] MEDS: dilTIAZem CD 120 MG Capsule PO SCH (10:19)
[2018-10-12] MEDS: Mirtazapine 15 MG Tablet PO SCH (10:19)
[2018-10-12] MEDS: Metoprolol Tartrate 50 MG Tablet PO SCH ×2 (10:19→21:27)
[2018-10-12] MEDS: Amiodarone 200 MG Tablet PO SCH (10:19)
[2018-10-12] MEDS: BACILLUS COAGULANS PO SCH (10:20)
[2018-10-12] MEDS: Senna/Docusate Sodium 8.6/50 MG Tablet PO SCH ×2 (10:21→21:27)
[2018-10-12] MEDS ORDERED: Bisacodyl 10 MG Supp RECTAL PRN (11:36)
--- NOTE | 2018-10-12 13:01 | P.CONPAL ---
Consult Service: Palliative Care Requesting Physician: Betito Capps Reason for Consult: a. To assist with evaluation and management of symptoms including: weakness, pain, nausea b. To assist medical decision maker(s) with: better understanding of current medical conditions; weighing benefits/burdens of medical treatment options; making medical treatment decisions. Primary Care Provider: Christopher Park History of Present Illness History of Present Illness: This is a 68-year-old female with history of diabetes, ESRD on HD, recurrent UTI , breast cancer, ESBL and peritoneal fluid, A. fib, polycystic kidney disease who presented to ER 10/10 for weakness and LLQ pain. She has had this LLQ pain for the last 2 months, since her last admission. pain is constant and exagerated by posture/positioning. She has also been having decreased appetite. Initial labs remarkable for creatinine 5.41, BUN 15. Treatment for UTI was initiated. She has complained of pain in buttocks where she has a wound. She was admitted 08/07 through 08/30/2018 and treated for ESBL peritonitis from her PD catheter. She had permacath placed and subsequently was discharged to rehab. Has had numerous ER visits in the last 2 years. It appears she was evaluated for kidney transplant in 2014 and has had some work up done for this at the last half of 2018, which she says now is on hold and she has no future follow up appointment. Appears she has lost 8 lbs since 2017. She did have a fall in the last 2-3 months. Patient seen in room, no family at bedside. Patient rates her pain at 2 or 3 out of 10. She said laying flat was making it worse and she feels better after sitting up. She had been having some nausea but says she feels none currently. She moves slowly and appears to be weak. Function/Cognitive Trajectory: Pt has had numerous ER visits in the last 2 years and this is her 2nd admission in 3 months. Review of Systems Constitutional: Reports lack of energy, Reports weight loss Eyes: Denies change in vision Ears, Nose, Mouth, and Throat: Denies abnormal hearing Cardiovascular: Denies chest pain Respiratory: Denies coughing up blood, Denies wheezing Gastrointestinal: Reports abdominal pain, Reports nausea, Reports vomiting Musculoskeletal: Reports abnormal walking Skin/Breast: Denies bleeding lesions Neurologic: Reports weakness Psychiatric: Denies anxiety, Denies depression PMFSH - History History Provided By: Patient - Medical History Medical History: Medical History (Last Reviewed 10/11/18 @ 07:32 by Yeyo Del Cid) Anemia Diabetes ESRD (end stage renal disease) H/O History of breast cancer History of diverticulitis History of infection due to ESBL Escherichia coli Onset Date: ~08/07/18 History of toe fracture History of wrist fracture Hypertension PKD (polycystic kidney disease) Paroxysmal A-fib Ulcer - Surgical History Surgical History: Surgical History (Last Reviewed 10/11/18 @ 07:32 by Yeyo Del Cid) History of lumpectomy of left breast Hx of cholecystectomy - Family History Family History: Family History (Last Updated 10/12/18 @ 12:52 by NANDO Carias) Father Congestive heart failure COPD (chronic obstructive pulmonary disease) Mother Congestive heart failure COPD (chronic obstructive pulmonary disease) Daughter Polycystic kidney disease Sister Polycystic kidney disease - Tobacco History Second Hand Smoke Exposure: No Smoking Status: Never smoker - Alcohol History How Often Do You Have a Drink Containing Alcohol: Never - Substance Use History Substance History: No History of Abuse - Travel History Recent Travel in the [place] Within the Last 8 Weeks: No Recent Travel Out of the Country Within the Last 8 Weeks: No - Immunization History Tetanus Immunization: <5 Years Medications and Allergies Active Medications: Active Medications Al Hydroxide/Mg Hydroxide (Milk Of Jose Liq) 30 ml PO Q12H PRN PRN Reason: Mild Constipation Alprazolam (Xanax) 0.5 mg PO TID PRN PRN Reason: Anxiety Amiodarone HCl (Cordarone) 200 mg PO DAILY [facility] Last Admin: 10/12/18 10:19 Dose: 200 mg Bisacodyl (Dulcolax Supp) 10 mg RECTAL DAILY PRN PRN Reason: SEVERE CONSITIPATION Cinacalcet (Sensipar) 60 mg PO DAILY [facility] Last Admin: 10/12/18 10:19 Dose: 60 mg Clonidine HCl (Catapres) 0.1 mg PO UNSCH PRN PRN Reason: SEE LABEL COMMENTS Cyproheptadine HCl (Periactin) 4 mg PO BID [facility] Last Admin: 10/12/18 10:19 Dose: 4 mg Diltiazem HCl (Cardizem Cd 24hr) 120 mg PO DAILY [facility] Last Admin: 10/12/18 10:19 Dose: 120 mg Diphenhydramine HCl (Benadryl) 25 mg PO UNSCH PRN PRN Reason: SEE LABEL COMMENTS Gelatin (Gelfoam 12 Mm/7 Mm Topical) 1 foam TOPICAL PRN PRN PRN Reason: help stop bleeding from site Gentamicin Sulfate (Gentamicin Inj) 20 mg OTHER WITH DIALYSIS PRN PRN Reason: Dwell Gentamycin Lock Last Admin: 10/10/18 16:59 Dose: 20 mg Heparin Sodium (Porcine) (Heparin Inj) 8,000 units OTHER WITH DIALYSIS PRN PRN Reason: for machine prime Heparin Sodium (Porcine) (Heparin Inj) 1,000 units OTHER WITH DIALYSIS PRN PRN Reason: Dwell Heparin to Fill Catheter Last Admin: 10/10/18 16:59 Dose: 1,000 units Sodium Chloride (Ns Inj) 1,000 mls @ 0 mls/hr OTHER .Q0M PRN PRN Reason: for prime and rinse back Last Infusion: 10/10/18 21:53 Dose: Infused Sodium Chloride (Ns Inj) 1,000 mls @ 200 mls/hr OTHER .Q5H PRN PRN Reason: for dialyzer flush PRN Sodium Chloride (Ns Inj) 1,000 mls @ 0 mls/hr IV.CONT .Q0M PRN PRN Reason: hypotension / volume replace Albumin Human (Flexbumin 25% Inj) 100 mls @ 60 mls/hr IV.SIG WITH DIALYSIS PRN PRN Reason: hypotension / volume replace Last Infusion: 10/10/18 21:52 Dose: Infused Lactulose (Lactulose Liq) 30 ml PO DAILY PRN PRN Reason: SEVERE CONSITIPATION Mannitol (Mannitol Inj) 12.5 gm IV.PUSH UNSCH PRN PRN Reason: hypotension / volume replace Metoprolol Tartrate (Lopressor) 50 mg PO BID [facility] Last Admin: 10/12/18 10:19 Dose: 50 mg Mirtazapine (Remeron) 30 mg PO DAILY [facility] Last Admin: 10/12/18 10:19 Dose: 30 mg Multivitamins/Minerals (Ocuvite With Lutein) 1 tab PO DAILY [facility] Last Admin: 10/12/18 10:18 Dose: 1 tab Nitroglycerin (Nitrostat Sl) 0.4 mg SL Q5M PRN PRN Reason: CHEST PAIN Ondansetron HCl (Zofran Inj) 4 mg IV.PUSH Q4H PRN PRN Reason: NAUSEA OR VOMITING Last Admin: 02/10/19 19:07 Dose: 4 mg Ondansetron HCl (Zofran Inj) 4 mg IV.PUSH UNSCH PRN PRN Reason: NAUSEA OR VOMITING Pom: (Bacillus Coagulans [Digestive Advantage] 1 Tab) 0 each PO DAILY [facility] Last Admin: 10/12/18 10:20 Dose: 1 each Senna/Docusate Sodium (Marta-Colace) 1 tab PO BID [facility] Last Admin: 10/12/18 10:21 Dose: Not Given Sennosides (Senokot) 17.2 mg PO Q12H PRN PRN Reason: Moderate Constipation Sevelamer Carbonate (Renvela) 3,200 mg PO TID [facility] Last Admin: 10/12/18 10:20 Dose: 3,200 mg Sodium Chloride (Ns Flush) 2 ml IV.FLUSH BID [facility] Last Admin: 10/12/18 10:20 Dose: 2 ml Sodium Chloride (Ns Flush) 2 ml IV.FLUSH PRN PRN PRN Reason: FLUSH AFTER USING IV ACCESS Sodium Chloride (Ns Flush) 5 ml IV.FLUSH PRN PRN PRN Reason: flush each lumen during HD Tramadol HCl (Ultram) 50 mg PO Q6H PRN PRN Reason: Pain 1-10 Last Admin: 10/11/18 11:01 Dose: 50 mg Allergies Allergy/AdvReac Type Severity Reaction Status Date / Time codeine Allergy Severe NAUSEA/VOMI Verified 10/10/18 11:27 TING morphine Allergy Severe MIGRAINES Verified 10/10/18 11:27 acetaminophen Allergy Intermediate ITCHING Verified 10/10/18 11:27 latex Allergy Intermediate Rash Verified 10/10/18 11:27 oxycodone Allergy Intermediate ITCHING Verified 10/10/18 11:27 doxycycline AdvReac Severe GI UPSET Verified 10/10/18 11:27 Home Medications Medication Instructions Recorded Confirmed Type amiodarone 200 mg PO DAILY 05/13/18 10/10/18 History cinacalcet [Sensipar] 60 mg PO DAILY 05/13/18 10/10/18 History Bacillus coagulans [Digestive 1 tab PO DAILY 08/07/18 10/10/18 History Advantage] dicyclomine 20 mg PO TIDAC 08/07/18 10/10/18 History docusate sodium [Colace] 100 mg PO DAILY PRN 08/07/18 10/10/18 History metoprolol tartrate 50 mg PO BID 08/07/18 10/10/18 History sevelamer carbonate [Renvela] 3,200 mg PO QID 08/07/18 10/10/18 History B complex with C#20-folic acid 1 cap PO DAILY 10/10/18 10/10/18 History [Triphrocaps] amiodarone 200 mg PO DAILY 10/10/18 10/10/18 History linezolid 600 mg PO Q12H 10/10/18 10/10/18 History vnuqgd-cistqbir-hltbsrb [Creon] 6,000 units PO TID 10/10/18 10/10/18 History mirtazapine [Remeron] 30 mg PO DAILY 10/10/18 10/10/18 History tramadol 50 mg PO Q6H PRN 10/10/18 10/10/18 History Advance Directives Living Will: No Healthcare Surrogate: No Physical Exam Vital Signs: Vital Signs - 24 hr 10/11/18 20:15 10/12/18 00:11 10/12/18 05:00 Temperature 98.4 F 98.1 F 98.8 F Pulse Rate 62 58 L 55 L Respiratory Rate 16 16 18 Blood Pressure 137/66 135/65 151/74 H Pulse Oximetry 93 L 94 L 97 10/12/18 08:23 10/12/18 12:01 Temperature 98.2 F 98.1 F Pulse Rate 60 59 L Respiratory Rate 16 18 Blood Pressure 121/74 168/78 H Pulse Oximetry 95 96 I&O: Intake & Output 10/10/18 10/11/18 10/12/18 10/13/18 06:59 06:59 06:59 06:59 Intake Total 1800 / 1800 1210 / 1210 Output Total 2500 / 2500 Balance -700 / -700 1210 / 1210 Weight 97.522 kg Physical Exam: CONSTITUTIONAL/GENERAL: This is an obese female pt TUBES/LINES/DRAINS: PIV SKIN: No jaundice, rashes, or lesions. + Ecchymoses on upper extremities. No wounds seen anteriorly. Skin temperature appropriate. Not diaphoretic. HEAD: Atraumatic. Normocephalic. EYES: Pupils equal and round and reactive. Extraocular motions intact. No scleral icterus. No injection or drainage. Fundi not examined. ENT: Hearing grossly normal. Nose without bleeding or purulent drainage. NECK: Trachea midline. Supple, nontender. CARDIOVASCULAR: RRR without murmurs, gallops, or rubs. No JVD. Peripheral pulses symmetric. RESPIRATORY/CHEST: Symmetric, unlabored respirations. Clear to auscultation. Breath sounds equal bilaterally. No wheezes, rales, or rhonchi. GASTROINTESTINAL: Abdomen soft, non-tender, obese. No hepato-splenomegaly, or palpable masses. No guarding. Bowel sounds present. GENITOURINARY: Without palpable bladder distension. MUSCULOSKELETAL: Extremities without clubbing, cyanosis. Trace pedal edema No joint tenderness or effusion noted. No calf tenderness. No mottling or clubbing. NEUROLOGICAL: mild lethargy but pt is oriented and answers appropriately. weak. Motor and sensory grossly within normal limits. Follows commands. Cognitively sharp. Moves all extremities. PSYCHIATRIC: flat affect. no apparent hallucinations or other psychotic thought process. Diagnostic Tests Laboratory: Laboratory Results - last 72 hr 10/10/18 10/10/18 10/10/18 11:40 11:45 11:45 WBC RBC Hgb Hct MCV MCH MCHC RDW Plt Count MPV Neut % (Auto) Lymph % (Auto) [place] % (Auto) Eos % (Auto) Baso % (Auto) Neut # (Auto) Lymph # (Auto) [place] # (Auto) Eos # (Auto) Baso # (Auto) WBC Differential Differential Comment PT 10.6 INR 1.0 APTT 23.5 Sodium Potassium Chloride Carbon Dioxide Anion Gap BUN Creatinine Estimated GFR POC Glucose 80 Random Glucose Lactic Acid Calcium Calcium Adj for Albumin Phosphorus Cancelled Magnesium Total Bilirubin AST ALT Alkaline Phosphatase Total Creatine Kinase CK-MB (CK-2) CK-MB (CK-2) % Troponin I Total Protein Albumin TSH PTH Intact Urine Color Urine Clarity Urine pH Ur Specific [place] Urine Protein Urine Glucose (UA) Urine Ketones Urine Occult Blood Urine Nitrate Urine Bilirubin Urine Urobilinogen Ur Leukocyte Esterase Urine RBC Urine WBC Urine WBC Clumps Ur Squamous Epith Cells Urine Bacteria Micro UA Comment Ur Microscopic Review Urine Culture Comments 10/10/18 10/10/18 10/10/18 11:45 11:45 11:45 WBC 8.4 RBC 3.64 L Hgb 12.4 Hct 37.7 MCV 103.4 H MCH 34.0 MCHC 32.9 RDW 17.4 H Plt Count 145 L MPV 8.8 Neut % (Auto) 83.7 H Lymph % (Auto) 7.2 L [place] % (Auto) 6.6 Eos % (Auto) 2.0 Baso % (Auto) 0.5 Neut # (Auto) 7.1 Lymph # (Auto) 0.6 L [place] # (Auto) 0.6 Eos # (Auto) 0.2 Baso # (Auto) 0.0 WBC Differential . Differential Comment Auto diff final PT INR APTT Sodium 135 L Potassium 4.3 Chloride 98 Carbon Dioxide 26.0 Anion Gap 11 BUN 15 Creatinine 5.41 H Estimated GFR 8 L POC Glucose Random Glucose 84 Lactic Acid 1.0 Calcium 11.2 H Calcium Adj for Albumin Phosphorus 4.2 Magnesium 1.9 Total Bilirubin 0.4 AST 62 H ALT 24 Alkaline Phosphatase 106 Total Creatine Kinase 888 H CK-MB (CK-2) 13.8 H CK-MB (CK-2) % 1.6 Troponin I 0.02 Total Protein 5.2 L Albumin 2.6 L TSH 2.950 PTH Intact Urine Color Urine Clarity Urine pH Ur Specific [place] Urine Protein Urine Glucose (UA) Urine Ketones Urine Occult Blood Urine Nitrate Urine Bilirubin Urine Urobilinogen Ur Leukocyte Esterase Urine RBC Urine WBC Urine WBC Clumps Ur Squamous Epith Cells Urine Bacteria Micro UA Comment Ur Microscopic Review Urine Culture Comments 10/10/18 10/10/18 10/10/18 11:45 11:50 15:52 WBC RBC Hgb Hct MCV MCH MCHC RDW Plt Count MPV Neut % (Auto) Lymph % (Auto) [place] % (Auto) Eos % (Auto) Baso % (Auto) Neut # (Auto) Lymph # (Auto) [place] # (Auto) Eos # (Auto) Baso # (Auto) WBC Differential Differential Comment PT INR APTT Sodium Potassium Chloride Carbon Dioxide Anion Gap BUN Creatinine Estimated GFR POC Glucose 76 Random Glucose Lactic Acid Calcium Calcium Adj for Albumin Phosphorus Magnesium Total Bilirubin AST ALT Alkaline Phosphatase Total Creatine Kinase CK-MB (CK-2) CK-MB (CK-2) % Troponin I Total Protein Albumin TSH Cancelled PTH Intact Urine Color Yellow Urine Clarity Cloudy H Urine pH 8.0 Ur Specific [place] 1.006 Urine Protein 100 H Urine Glucose (UA) Negative Urine Ketones Negative Urine Occult Blood Moderate H Urine Nitrate Negative Urine Bilirubin Negative Urine Urobilinogen Less than 2 Ur Leukocyte Esterase Large H Urine RBC 51 H Urine WBC Urine WBC Clumps Moderate H Ur Squamous Epith Cells 3 Urine Bacteria Few H Micro UA Comment Cath-culture ind Ur Microscopic Review Not Reportable Urine Culture Comments Cath-cult indicated 10/11/18 10/11/18 10/12/18 07:36 07:36 04:30 WBC 6.1 7.6 RBC 3.27 L 3.44 L Hgb 11.3 L 12.0 Hct 34.8 L 36.1 MCV 106.5 H 104.9 H MCH 34.6 H 34.9 H MCHC 32.5 33.2 RDW 17.5 H 16.9 Plt Count 127 L 116 L MPV 8.8 8.8 Neut % (Auto) 77.4 H 77.5 H Lymph % (Auto) 10.4 10.4 [place] % (Auto) 8.3 H 8.5 H Eos % (Auto) 3.3 2.9 Baso % (Auto) 0.6 0.7 Neut # (Auto) 4.7 5.9 Lymph # (Auto) 0.6 L 0.8 L [place] # (Auto) 0.5 0.6 Eos # (Auto) 0.2 0.2 Baso # (Auto) 0.0 0.1 WBC Differential . . Differential Comment Auto diff final Auto diff final PT INR APTT Sodium 140 Potassium 4.1 Chloride 102 Carbon Dioxide 31.2 Anion Gap 7 BUN 11 Creatinine 4.21 H Estimated GFR 11 L POC Glucose Random Glucose 71 L Lactic Acid Calcium 10.6 H Calcium Adj for Albumin Phosphorus Magnesium Total Bilirubin 0.4 AST 21 ALT 18 Alkaline Phosphatase 92 Total Creatine Kinase 21 L CK-MB (CK-2) CK-MB (CK-2) % Troponin I Total Protein 5.2 L Albumin 2.8 L TSH PTH Intact Urine Color Urine Clarity Urine pH Ur Specific [place] Urine Protein Urine Glucose (UA) Urine Ketones Urine Occult Blood Urine Nitrate Urine Bilirubin Urine Urobilinogen Ur Leukocyte Esterase Urine RBC Urine WBC Urine WBC Clumps Ur Squamous Epith Cells Urine Bacteria Micro UA Comment Ur Microscopic Review Urine Culture Comments 10/12/18 10/12/18 04:30 04:30 WBC RBC Hgb Hct MCV MCH MCHC RDW Plt Count MPV Neut % (Auto) Lymph % (Auto) [place] % (Auto) Eos % (Auto) Baso % (Auto) Neut # (Auto) Lymph # (Auto) [place] # (Auto) Eos # (Auto) Baso # (Auto) WBC Differential Differential Comment PT INR APTT Sodium 137 Potassium 4.1 Chloride 100 Carbon Dioxide 31.2 Anion Gap 6 BUN 17 Creatinine 5.39 H Estimated GFR 8 L POC Glucose Random Glucose 69 L Lactic Acid Calcium 11.8 H* D Calcium Adj for Albumin 12.9 H* Phosphorus Magnesium Total Bilirubin AST ALT Alkaline Phosphatase Total Creatine Kinase CK-MB (CK-2) CK-MB (CK-2) % Troponin I Total Protein Albumin 2.6 L TSH PTH Intact 772.1 H Urine Color Urine Clarity Urine pH Ur Specific [place] Urine Protein Urine Glucose (UA) Urine Ketones Urine Occult Blood Urine Nitrate Urine Bilirubin Urine Urobilinogen Ur Leukocyte Esterase Urine RBC Urine WBC Urine WBC Clumps Ur Squamous Epith Cells Urine Bacteria Micro UA Comment Ur Microscopic Review Urine Culture Comments Result Diagrams: 10/12/18 04:30 10/12/18 04:30 Microbiology: Microbiology 10/10/18 11:50 Urine Culture - Final Catheterized Urine Enterococcus faecium VRE 10/10/18 11:45 Aerobic Blood Culture - Preliminary Blood - Peripheral No growth in 2 days Anaerobic Blood Culture - Preliminary No growth in 2 days 10/10/18 11:45 Aerobic Blood Culture - Preliminary Blood - Peripheral No growth in 2 days Anaerobic Blood Culture - Preliminary No growth in 2 days Imaging: ITS Impressions Chest X-Ray 10/10/18 11:19 CONCLUSION: No acute cardiopulmonary disease demonstrated. Head CT 10/10/18 11:19 CONCLUSION: Negative noncontrast head CT. . Abdomen/Pelvis CT 10/10/18 11:20 CONCLUSION: 1. An apparent tiny stone in the proximal left ureter but without associated hydronephrosis or hydroureter. 2. No acute abnormalities are demonstrated. 3. Numerous cysts and nonobstructing stones again seen of both kidneys. 4. Resolved free air. Patient/Family Conference Present at Family Conference: patient Family Conference Time: 28 Family Conference Location: Bedside Issues Discussed: * Palliative care role, purpose, approach * Additional medical, psychosocial, and spiritual history * Patients general health, functional status, and cognitive changes in the months leading up to the current hospitalization * Patient understanding of the current medical problems * Patient understanding of prognosis * Patients goals of care as best understood from conversations * Current medical treatment options and benefits/burdens of those options * code status * Questions answered to the best of my ability * Palliative care contact information provided Goals aggressive short of no code/DNR. At this time patient still wants to pursue a kidney transplant although she admits "I am not sure what the risks are for me." She says right now her goal is to get home. She and her have had discussions about what kinds of interventions they would want done for them if critically ill. She said they both feel that they would not want to be resuscitated in the event of cardiac arrest or respiratory failure and would want to pass naturally. "Our children know this is what we want." She does not have a designated healthcare surrogate but indicates that she would want her to make medical decisions for her. Assessment and Plan - Disease Oriented Problem List (1) Hypercalcemia (2) UTI (urinary tract infection) (3) End stage renal disease on dialysis - Symptom Scale (1) Pain 0-10 Scale: Unable to quantify (2) Generalized weakness 0-10 Scale: Unable to quantify Pertinent Non-Medical Issues: Psychosocial: Patient is currently , second . She has 2 children. 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 She is originally from [place] and moved to this area in 1990. Spiritual: pastoral care available Legal: Patient is currently capacitated to make medical decisions In the event she loses at capacity she indicates she would want her to make medical decisions on her behalf. Per [place] statute proxy decision making would fall to her anyways. Ethical issues impacting care: none Important Contacts: Isaiah Chavez [phone] Prognosis: This is a 68-year-old female with history of diabetes, ESRD on HD, recurrent UTI , breast cancer, ESBL and peritoneal fluid, A. fib, polycystic kidney disease who presented to ER 10/10 for weakness and LLQ pain. Being treated for UTI. Recent admission for infected peritoneal catheter. It is unclear if she is still a candidate for kidney transplant. She is dialysis dependent. If not for HD, she would not surivive for long. She has a trajectory decline. She is hospice appropriate should goals be in line with comfort. Code Status: Full Code Plan: - LEGAL DECISION MAKER -patient is currently capacitated to make medical decisions. In the event she becomes incapacitated to do so, in the absence of a designated healthcare surrogate, proxy decision making would fall to her - CODE STATUS- no code/DNR - GOALS - Goals aggressive short of no code/DNR. At this time patient still wants to pursue a kidney transplant although she admits "I am not sure what the risks are for me." She says right now her goal is to get home. She and her have had discussions about what kinds of interventions they would want done for them if critically ill. She said they both feel that they would not want to be resuscitated in the event of cardiac arrest or respiratory failure and would want to pass naturally. "Our children know this is what we want." She does not have a designated healthcare surrogate but indicates that she would want her to make medical decisions for her. - SYMPTOMS - * pain - sites include back side, LLQ. on my eval she rates it 2-11/08. no pain meds at this time * weakness - multifactorial. ESRD on HD, has had decreased appetite. * nausea - chronic. follows with Dr Vega. has AKLI dyson - Palliative care will continue to follow during hospital course as condition evolves, to assist patient/decision-maker with understanding of medical conditions, weighing benefits/burdens of treatment options, for clarification of goals of treatment. Additionally will assist with any symptoms of palliative concern Appreciation Thank you for the opportunity to participate in the care of Brandi Chavez. Attestation Attestation: To help prompt me to consider important information that might be impacting today's encounter and assessment, information from prior notes written by myself or my colleagues may have been "brought forward" into today's note. My signature on this note, however, is an attestation that I personally performed the exam, history, and/or decision-making noted today, and, unless otherwise indicated, the interactions with patient, family, and staff as well as the review of records all occurred today. I also attest that the listed assessment and stated plan reflect my best clinical judgment today based on the combination of historical information, prior notes, and today's exam/ interactions. When time spent is documented, it refers only to time spent today by the signer, or if indicated, combined time spent today by collaborating physician/nurse practitioner.
--- NOTE | 2018-10-12 16:44 | P.PNNP ---
Subjective Interval history: Patient resting comfortably in bed. In no acute distress. Last hemodialysis was on Friday. <Yolanda Henderson - Last Filed: 10/12/18 16:18> Physical Exam Vital signs: Vital Signs 10/11/18 20:15 10/12/18 00:11 10/12/18 05:00 Temperature 98.4 F 98.1 F 98.8 F Pulse Rate 62 58 L 55 L Respiratory Rate 16 16 18 Blood Pressure 137/66 135/65 151/74 H Pulse Oximetry 93 L 94 L 97 10/12/18 08:00 10/12/18 08:23 10/12/18 12:01 Temperature 98.2 F 98.1 F Pulse Rate 60 59 L Respiratory Rate 16 18 Blood Pressure 121/74 168/78 H Pulse Oximetry 96 95 96 Intake & Output 10/11/18 10/12/18 10/12/18 18:59 06:59 18:59 Intake Total 750 / 750 460 / 460 Balance 750 / 750 460 / 460 Intake: IV 100 / 100 Maxipime Inj 1,000 MG In NS Inj 100 / 100 100 ML @ 200 mls/hr IV.SIG Q24H TAD Rx#:[id number] Oral 750 / 750 360 / 360 Other: # Voids 2 Date of Last Bowel Movement 10/11/18 10/11/18 Narrative: GENERAL: Well-nourished, well-developed patient. SKIN: Warm and dry. HEAD: Normocephalic. EYES: No scleral icterus. No injection or drainage. NECK: Supple, trachea midline. No JVD or lymphadenopathy. CARDIOVASCULAR: Regular rate and rhythm without murmurs, gallops, or rubs. Right subclavian permacath noted, site clean. RESPIRATORY: Breath sounds equal bilaterally. No accessory muscle use. GASTROINTESTINAL: Abdomen soft, non-tender, nondistended. EXTREMITIES: No edema dry skin NEUROLOGICAL: Awake, alert, and oriented x 3. Non-focal. <Yloanda Henderson - Last Filed: 10/12/18 16:18> Vital signs: Vital Signs 10/11/18 20:15 10/12/18 00:11 10/12/18 05:00 Temperature 98.4 F 98.1 F 98.8 F Pulse Rate 62 58 L 55 L Respiratory Rate 16 16 18 Blood Pressure 137/66 135/65 151/74 H Pulse Oximetry 93 L 94 L 97 10/12/18 08:00 10/12/18 08:23 10/12/18 12:01 Temperature 98.2 F 98.1 F Pulse Rate 60 59 L Respiratory Rate 16 18 Blood Pressure 121/74 168/78 H Pulse Oximetry 96 95 96 10/12/18 16:18 Temperature 98.0 F Pulse Rate 64 Respiratory Rate 16 Blood Pressure 188/79 H Pulse Oximetry 95 Intake & Output 10/11/18 10/12/18 10/12/18 18:59 06:59 18:59 Intake Total 750 / 750 460 / 460 Balance 750 / 750 460 / 460 Intake: IV 100 / 100 Maxipime Inj 1,000 MG In NS Inj 100 / 100 100 ML @ 200 mls/hr IV.SIG Q24H TAD Rx#:[id number] Oral 750 / 750 360 / 360 Other: # Voids 2 Date of Last Bowel Movement 10/11/18 10/11/18 <Josh Berumen - Last Filed: 10/12/18 17:40> Assessment and Plan - Assessment (1) End stage renal disease on dialysis Code(s): N18.6 - End stage renal disease; Z99.2 - Dependence on renal dialysis Status: Chronic Plan: Patient had hemodialysis on Friday 2.5 L of ultrafiltration,continue supportive care -Continue to monitor -Continue supportive care (2) Hypercalcemia Code(s): E83.52 - Hypercalcemia Status: Acute Plan: Current calcium at 12.9, PTH 772, patient does have known secondary hyperparathyroidism She is on Sensipar already at 60 mg daily I do not see any medications that would cause an increase in calcium -Increase Sensipar to 90 mg daily -Renal function in a.m. (3) Dehydration Code(s): E86.0 - Dehydration Status: Acute Plan: Encourage hydration Calcium increasing, 12.9 could also be secondary to dehydration (4) UTI (urinary tract infection) Code(s): N39.0 - Urinary tract infection, site not specified Status: Acute Plan: Patient on cefepime, she has history of ESBL E. coli peritonitis <Yolanda Henderson - Last Filed: 10/12/18 16:18> - Assessment (1) End stage renal disease on dialysis Code(s): N18.6 - End stage renal disease; Z99.2 - Dependence on renal dialysis Status: Chronic (2) Hypercalcemia Code(s): E83.52 - Hypercalcemia Status: Acute (3) Dehydration Code(s): E86.0 - Dehydration Status: Acute (4) UTI (urinary tract infection) Code(s): N39.0 - Urinary tract infection, site not specified Status: Acute - Attending Attestation I have seen and examined the patient hypercalcemia and is likely due to hyperparathyroidism, Sensipar increase, care discussed with NANDO Guerrero, I agree with above assessment and plan <Josh Berumen - Last Filed: 10/12/18 17:40>
[2018-10-13 08:25] LABS: Baso # (Auto) 0.1 th/mm3 (0.0-0.2); Baso % (Auto) 0.5 % (0.0-2.0); Eos # (Auto) 0.3 th/mm3 (0.0-0.4); Eos % (Auto) 3.2 % (0.0-4.0); Hematocrit 43.8 % (35.0-46.0); Hemoglobin 14.4 gm/dL (11.6-15.3); Lymph # (Auto) 0.8 th/mm3 (1.0-4.8); Lymph % (Auto) 7.6 % (9.0-44.0); Mean Corpuscular HGB Conc 32.9 % (32.0-36.0); Mean Corpuscular Hemoglobin 34.7 pg (27.0-34.0); Mean Corpuscular Volume 105.5 fL (80.0-100.0); Mean Platelet Volume 8.1 fL (7.0-11.0); Mono # (Auto) 0.8 th/mm3 (0.0-0.9); Mono % (Auto) 7.2 % (0.0-8.0); Neut # (Auto) 8.5 th/mm3 (1.8-7.7); Neut % (Auto) 81.5 % (16.0-70.0); Platelet Count 113 th/mm3 (150-450); Red Blood Count 4.15 mil/mm3 (4.00-5.30); Red Cell Distribution Width 17.1 % (11.6-17.2); White Blood Count 10.4 th/mm3 (4.0-11.0)
[2018-10-13 08:40] LABS: Calcium 12.2 mg/dL (8.5-10.1); Carbon Dioxide 28.6 meq/L (21.0-32.0); Potassium 4.9 meq/L (3.5-5.1)
[2018-10-13] MEDS: Metoprolol Tartrate 50 MG Tablet PO SCH ×2 (09:29→20:45)
[2018-10-13] MEDS: Mirtazapine 15 MG Tablet PO SCH (09:29)
[2018-10-13] MEDS: dilTIAZem CD 120 MG Capsule PO SCH (09:30)
[2018-10-13] MEDS: Vitamins A,C,E/Lutein/Minerals Tablet PO SCH (09:31)
[2018-10-13] MEDS: Amiodarone 200 MG Tablet PO SCH (09:31)
[2018-10-13] MEDS: Senna/Docusate Sodium 8.6/50 MG Tablet PO SCH ×2 (09:32→20:45)
[2018-10-13] MEDS: BACILLUS COAGULANS PO SCH (09:33)
--- NOTE | 2018-10-13 15:08 | P.PNNP ---
Subjective Interval history: Patient setting up this morning, eating breakfast. Spoke with the nurse, was hypoglycemic this morning with a blood sugar of 65, apple juice given. Had an episode of vomiting this morning, one episode, small amount. Feels better now. <Yolanda Henderson - Last Filed: 10/13/18 15:01> Physical Exam Vital signs: Vital Signs 10/12/18 16:18 10/12/18 19:45 10/12/18 23:35 Temperature 98.0 F 98.3 F 98.2 F Pulse Rate 64 63 61 Respiratory Rate 16 18 18 Blood Pressure 188/79 H 168/77 H 151/71 H Pulse Oximetry 95 97 96 10/13/18 04:50 10/13/18 07:40 10/13/18 11:36 Temperature 97.6 F 97.4 F L 98.3 F Pulse Rate 57 L 58 L 62 Respiratory Rate 18 16 16 Blood Pressure 164/77 H 164/74 H 143/81 H Pulse Oximetry 97 98 97 Intake & Output 10/12/18 10/13/18 10/13/18 18:59 06:59 18:59 Intake Total 720 / 720 Balance 720 / 720 Weight 89.1 kg Intake: Oral 720 / 720 Other: # Voids 1 Weight On Admission 89.2 kg Narrative: GENERAL: Well-nourished, well-developed patient. SKIN: Warm and dry. HEAD: Normocephalic. EYES: No scleral icterus. No injection or drainage. NECK: Supple, trachea midline. No JVD or lymphadenopathy. CARDIOVASCULAR: Regular rate and rhythm without murmurs, gallops, or rubs. Right subclavian permacath noted, site clean. RESPIRATORY: Breath sounds equal bilaterally. No accessory muscle use. GASTROINTESTINAL: Abdomen soft, non-tender, nondistended. EXTREMITIES: No edema dry skin NEUROLOGICAL: Awake, alert, and oriented x 3. Non-focal. <Yolanda Henderson - Last Filed: 10/13/18 15:01> Vital signs: Vital Signs 10/12/18 16:18 10/12/18 19:45 10/12/18 23:35 Temperature 98.0 F 98.3 F 98.2 F Pulse Rate 64 63 61 Respiratory Rate 16 18 18 Blood Pressure 188/79 H 168/77 H 151/71 H Pulse Oximetry 95 97 96 10/13/18 04:50 02/12/19 07:40 10/13/18 11:36 Temperature 97.6 F 97.4 F L 98.3 F Pulse Rate 57 L 58 L 62 Respiratory Rate 18 16 16 Blood Pressure 164/77 H 164/74 H 143/81 H Pulse Oximetry 97 98 97 Intake & Output 10/12/18 10/13/18 10/13/18 18:59 06:59 18:59 Intake Total 720 / 720 Balance 720 / 720 Weight 89.1 kg Intake: Oral 720 / 720 Other: # Voids 1 Weight On Admission 89.2 kg <Josh Berumen - Last Filed: 10/13/18 15:48> Assessment and Plan - Assessment (1) End stage renal disease on dialysis Code(s): N18.6 - End stage renal disease; Z99.2 - Dependence on renal dialysis Status: Chronic Plan: Patient had hemodialysis on Friday 2.5 L of ultrafiltration,continue supportive care Hemodialysis this afternoon -Continue to monitor -Continue supportive care (2) Hypercalcemia Code(s): E83.52 - Hypercalcemia Status: Acute Plan: Current corrected calcium is 13, PTH 772, patient does have known secondary hyperparathyroidism Sensipar was increased to 90 mg daily yesterday. Increased calcium could also be secondary to being sedentary. I do not see any medications that would cause an increase in calcium -Continue with Sensipar 90 mg daily. In the past, she did have complaints of upset stomach with Sensipar. There is question of whether or not this patient is compliant with this medication. -Renal function in a.m. (3) Dehydration Code(s): E86.0 - Dehydration Status: Acute Plan: Encourage hydration (4) UTI (urinary tract infection) Code(s): N39.0 - Urinary tract infection, site not specified Status: Acute Plan: Patient on cefepime, she has history of ESBL E. coli peritonitis <Yolanda Henderson - Last Filed: 10/13/18 15:01> - Assessment (1) End stage renal disease on dialysis Code(s): N18.6 - End stage renal disease; Z99.2 - Dependence on renal dialysis Status: Chronic (2) Hypercalcemia Code(s): E83.52 - Hypercalcemia Status: Acute (3) Dehydration Code(s): E86.0 - Dehydration Status: Acute (4) UTI (urinary tract infection) Code(s): N39.0 - Urinary tract infection, site not specified Status: Acute - Plan I have seen and examined the patient care discussed with NANDO Guerrero, patient has some nausea and vomiting earlier, she is seen again during hemodialysis Ultrafiltration of 2.5 L as tolerated Patient is a long-term diabetic and may have a complication of gastroparesis, her calcium is high due to the immobilization and hyperparathyroidism continue with Sensipar I agree with above assessment and plan <Josh Berumen - Last Filed: 10/13/18 15:48>
--- NOTE | 2018-10-13 16:42 | P.PNIM ---
Subjective Interval history: Pt had episode of nausea/vomiting following breakfast this AM. Physical Exam Vital signs: Last Vital Signs Temp 98.3 F 10/13/18 11:36 Pulse 62 10/13/18 11:36 Resp 16 10/13/18 11:36 BP 143/81 H 10/13/18 11:36 Pulse Ox 97 10/13/18 11:36 Narrative: GENERAL: NAD, Awake and alert CARDIO: Regular. RESP: Clear to auscultation. Breath sounds equal bilaterally. ABD: +BS, soft, non-tender, nondistended. Two wound on abdomen, one in the lower left side with clean dressing and packing in place, no erythema or drainage noted. Other wound to the right of midline and also with clean dressing and packing in place, no erythema or drainage noted. EXT: No edema. No obvious deformities. Results Labs CBC & Chem 7: 10/13/18 07:48 10/13/18 07:48 Assessment and Plan Assessment (1) End stage renal disease on dialysis: Code(s): N18.6 - End stage renal disease; Z99.2 - Dependence on renal dialysis Status: Chronic (2) Hypercalcemia: Code(s): E83.52 - Hypercalcemia Status: Acute (3) Dehydration: Code(s): E86.0 - Dehydration Status: Acute (4) UTI (urinary tract infection): Code(s): N39.0 - Urinary tract infection, site not specified Status: Acute Plan Generalized weakness Dehydration Elevated CK - Pt is a 68 y/o female with ESRD on HD (), type 2 DM, chronic anemia, anxiety, and hx of breast cancer. Pt was recently admitted to [facility] in 08/2018 with ESBL peritonitis. Pt had PermCath placed during that admission and was discharged to rehab at the end of that hospitalization. She states that she has not been eating or drinking much of anything for the last few weeks. She states that she did not like the food at rehab and her appetite has been poor. She was at rehab until 10/02/18 and has been home for the last week. - In the ED she had a catheterized UA performed which was abnormal and urine culture with Strep Sp - Pt was given a dose of Rocephin in the ED - Blood cultures with NGTD - Cefepime stopped - UA/Cx --> less than 15K CFU. Colonized. NO treatment - Pts labs appear dehydrated as pt clinically appears dehydrated - Chest X-Ray (10/10/18) -->No acute cardiopulmonary disease demonstrated. - CT Abdomen/Pelvis (10/10/18) 1. An apparent tiny stone in the proximal left ureter but without associated hydronephrosis or hydroureter. 2. No acute abnormalities are demonstrated. 3. Numerous cysts and nonobstructing stones again seen of both kidneys. 4. Resolved free air. - PT daily - Encourage oral intake, add supplements with meals, diet decreased to full liquids on 10/11 due to N/V - Zofran PRN prior to meals - Supportive care Nausea/Vomiting - long h/o DM2 - Diabetic Gastroparesis? - obtain GES ESRD on HD - She has been receiving HD on . - Consulted to Dr. Berumen, her lab intern and she underwent HD on 10/10/18 - Monitor labs Hx A. fib - Cont. Amiodarone 200mg daily, metoprolol 50mg BID, and Cardizem CD 120mg daily Type 2 diabetes controlled by diet - Renal diet back down to full liquids on 10/11 Chronic anemia likely secondary to end-stage renal disease on peritoneal dialysis - Labs at admission with Hgb 12.4 but pt appears dehydrated so this is likely hemoconcentration - Repeat labs are stable DVT prophylaxis with SCDs Progress Note: Quality VTE Deep Vein Thrombosis/Pulmonary Embolism Present on Admission: No _ (1) UTI (urinary tract infection) Qualifiers: Encounter type: Hematuria presence: Indwelling urinary catheter type: Urinary tract infection type:
[2018-10-13] MEDS: Heparin 10,000 UNITS/10 ML Vial (for IV use) OTHER PRN (16:48)
[2018-10-13 21:44] LABS: Hepatitits B Surface Antigen Nonreactive (Nonreactive)
[2018-10-13 22:16] LABS: Hepatitis A IgM Antibody Nonreactive (Nonreactive)
[2018-10-14] MEDS: Vitamins A,C,E/Lutein/Minerals Tablet PO SCH (11:07)
[2018-10-14] MEDS: Senna/Docusate Sodium 8.6/50 MG Tablet PO SCH ×2 (11:07→21:41)
[2018-10-14] MEDS: Amiodarone 200 MG Tablet PO SCH (11:07)
[2018-10-14] MEDS: Metoprolol Tartrate 50 MG Tablet PO SCH ×2 (11:08→21:41)
[2018-10-14] MEDS: dilTIAZem CD 120 MG Capsule PO SCH (11:08)
[2018-10-14] MEDS: Mirtazapine 15 MG Tablet PO SCH (11:10)
[2018-10-14] MEDS: BACILLUS COAGULANS PO SCH (11:30)
--- NOTE | 2018-10-14 11:32 | NM ---
EXAM DATE: 10/14/2018 10:56 AM EST AGE/SEX: 68 years / Female INDICATIONS: Nausea and vomiting. CLINICAL DATA: This is the patient's initial encounter. Patient reports that signs and symptoms have been present for 2 days and indicates a pain score of 3/10. MEDICAL/SURGICAL HISTORY: Carcinoma, breast. Renal disease, end stage. Hypertension. Mastecto my, left. Cholecystectomy. COMPARISON: No prior exams available for comparison. DOSE: 1 mCi Tc99m Sulfur Colloid Labeled Whole Egg PO MEDICATION: 5 mg Reglan IV at 90 minutes. minutes. IMAGING TIME: 2 hr TECHNIQUE: Following the oral ingestion of radiotracer-labeled meal, dynamic sequential images in the [place] projection were acquired with simultaneous computer acquisition. The data set was decay-correcte d. FINDINGS: Lag Phase: There is 20 minutes before onset of gastric emptying. Emptying: Gastric emptying kinetics are linear. The decay-corrected, back-extrapolated half-time of emptying is 50 minutes. (Normal for this lab is 45 - 90 minutes) Intervention: Regular was given at 90 minutes minimal emptying. CONCLUSION: 1. Normal gastric emptying half-time and kinetics. Electronically signed by: Danial Diego MD Board Certified Radiologist 10/14/2018 11:31 AM EST
--- NOTE | 2018-10-14 14:07 | P.PNNP ---
Subjective Interval history: Patient resting in bed. Full liquid diet tray is at her bedside. She states she just recently returned from a nuclear medicine, and her morning meds were administered. She states she is having a hard time swallowing her pills, which she ends up gagging and vomiting. Mucous membranes appear to be very dry. Complaints of cramping to her abdomen, feels like she needs to pass flatus but nothing happens. <Yolanda Henderson - Last Filed: 10/14/18 13:56> Physical Exam Vital signs: Vital Signs 10/13/18 19:40 10/14/18 00:00 10/14/18 04:55 Temperature 98.2 F 98.1 F 97.6 F Pulse Rate 69 64 63 Respiratory Rate 18 18 18 Blood Pressure 136/64 153/70 H 165/76 H Pulse Oximetry 96 97 99 10/14/18 07:25 Temperature 97.5 F L Pulse Rate 71 Respiratory Rate 20 Blood Pressure 153/78 H Pulse Oximetry 96 Intake & Output 10/13/18 10/14/18 10/14/18 18:59 06:59 18:59 Output Total 1800 / 1800 Balance -1800 / -1800 Weight 87.7 kg Output: Hemodialysis Amount 1800 / 1800 Other: # Voids 0 Narrative: GENERAL: Well-nourished, well-developed patient. SKIN: Warm and dry. HEAD: Normocephalic. EYES: No scleral icterus. No injection or drainage. NECK: Supple, trachea midline. No JVD or lymphadenopathy. CARDIOVASCULAR: Regular rate and rhythm without murmurs, gallops, or rubs. Right subclavian permacath noted, site clean. RESPIRATORY: Breath sounds equal bilaterally. No accessory muscle use. GASTROINTESTINAL: Abdomen soft, non-tender, nondistended. EXTREMITIES: No edema dry skin NEUROLOGICAL: Awake, alert, and oriented x 3. Non-focal. <Yolanda Henderson - Last Filed: 10/14/18 13:56> Vital signs: Vital Signs 10/13/18 19:40 10/14/18 00:00 10/14/18 04:55 Temperature 98.2 F 98.1 F 97.6 F Pulse Rate 69 64 63 Respiratory Rate 18 18 18 Blood Pressure 136/64 153/70 H 165/76 H Pulse Oximetry 96 97 99 10/14/18 07:25 10/14/18 15:25 Temperature 97.5 F L 98.1 F Pulse Rate 71 87 Respiratory Rate 20 20 Blood Pressure 153/78 H 143/69 H Pulse Oximetry 96 98 Intake & Output 10/13/18 10/14/18 10/14/18 18:59 06:59 18:59 Output Total 1800 / 1800 Balance -1800 / -1800 Weight 87.7 kg Output: Hemodialysis Amount 1800 / 1800 Other: # Voids 0 <Josh Berumen - Last Filed: 10/14/18 17:12> Assessment and Plan - Assessment (1) End stage renal disease on dialysis Code(s): N18.6 - End stage renal disease; Z99.2 - Dependence on renal dialysis Status: Chronic Plan: Patient had hemodialysis on Friday 2.5 L of ultrafiltration,continue supportive care Hemodialysis yesterday, 1.8 L removed -Continue to monitor -Continue supportive care (2) Hypercalcemia Code(s): E83.52 - Hypercalcemia Status: Acute Plan: Current corrected calcium is 13, PTH 772, patient does have known secondary hyperparathyroidism Sensipar was increased to 90 mg daily on 10/12/2018.. Increased calcium could also be secondary to being sedentary, dehydration. I do not see any medications that would cause an increase in calcium -Continue with Sensipar 90 mg daily. In the past, she did have complaints of upset stomach with Sensipar. There is question of whether or not this patient is compliant with this medication. -Renal function in a.m. (3) Dehydration Code(s): E86.0 - Dehydration Status: Acute Plan: Patient has been having a difficult time swallowing her pills, of which she gags and then vomits. She states if it were not for the pills, she otherwise tolerates her diet just fine. She is very dry, lips are cracked. Gastric emptying study completed today, due to nausea and vomiting. Normal gastric emptying study. -Encourage medication use with applesauce. Dry mucous membranes may be inhibiting her to swallow her medication effectively. -Encourage continued hydration throughout the day. Currently on a full liquid diet. (4) UTI (urinary tract infection) Code(s): N39.0 - Urinary tract infection, site not specified Status: Acute Plan: Cefepime stopped - UA/Cx --> less than 15K CFU. Colonized. NO treatment <[facility],Yolanda - Last Filed: 10/14/18 13:56> - Assessment (1) End stage renal disease on dialysis Code(s): N18.6 - End stage renal disease; Z99.2 - Dependence on renal dialysis Status: Chronic (2) Hypercalcemia Code(s): E83.52 - Hypercalcemia Status: Acute (3) Dehydration Code(s): E86.0 - Dehydration Status: Acute (4) UTI (urinary tract infection) Code(s): N39.0 - Urinary tract infection, site not specified Status: Acute - Attending Attestation I have seen and examined the patient, care discussed with NANDO Guerrero, I agree with above assessment and plan, gastric emptying study was normal, next hemodialysis is scheduled tomorrow patient is on cyproheptadine to stimulate appetite, patient is treated for UTI final culture less than 10,000 colonies of VRE, colonization suspected, this does not need specimen treatment, continue supportive care <Josh Berumen - Last Filed: 10/14/18 17:12>
--- NOTE | 2018-10-14 16:04 | P.PNPAL ---
Reason for Visit Reason for visit: a. To assist with evaluation and management of symptoms including: weakness, pain, nausea b. To assist medical decision maker(s) with: better understanding of current medical conditions; weighing benefits/burdens of medical treatment options; making medical treatment decisions. Subjective Subjective/Interval History: GES resulted- normal. Pt did some therapy this morning but cut it short after feeling dizzy using the bathroom. Seen in room, at bedside. She denies pain on my eval. She had n/v and some gagging on pills this morning. She said her nausea is usually worse before /during a meal. She is agreeable to a trial of haldol for her persistent nausea. She complains of feeling weak, lacking energy. SHe has difficulty with her renvela and says she doesn't want to take it anymore if she continues having trouble swallowing it. Provided medical update. She would still like to pursue kidney transplant. Per transplant team she needs some additional cardiac work up. "If it makes me feel better then I should do it." She would like to do more rehab but wants somewhere other than [facility]. inquiring [facility] [place] [facility] [place] Objective Vital Signs: Vital Signs 10/13/18 19:40 10/14/18 00:00 10/14/18 04:55 Temperature 98.2 F 98.1 F 97.6 F Pulse Rate 69 64 63 Respiratory Rate 18 18 18 Blood Pressure 136/64 153/70 H 165/76 H Pulse Oximetry 96 97 99 10/14/18 07:25 Temperature 97.5 F L Pulse Rate 71 Respiratory Rate 20 Blood Pressure 153/78 H Pulse Oximetry 96 Intake & Output 10/13/18 10/14/18 10/14/18 18:59 06:59 18:59 Output Total 1800 / 1800 Balance -1800 / -1800 Weight 87.7 kg Output: Hemodialysis Amount 1800 / 1800 Other: # Voids 0 Physical Exam: CONSTITUTIONAL/GENERAL: This is an obese female pt TUBES/LINES/DRAINS: PIV SKIN: No jaundice, rashes, or lesions. + Ecchymoses on upper extremities. No wounds seen anteriorly. Skin temperature appropriate. Not diaphoretic. HEAD: Atraumatic. Normocephalic. EYES: Pupils equal and round and reactive. Extraocular motions intact. No scleral icterus. No injection or drainage. Fundi not examined. ENT: Hearing grossly normal. Nose without bleeding or purulent drainage. NECK: Trachea midline. Supple, nontender. CARDIOVASCULAR: RRR without murmurs, gallops, or rubs. No JVD. Peripheral pulses symmetric. RESPIRATORY/CHEST: Symmetric, unlabored respirations. Clear to auscultation. Breath sounds equal bilaterally. No wheezes, rales, or rhonchi. GASTROINTESTINAL: Abdomen soft, non-tender, obese. No hepato-splenomegaly, or palpable masses. No guarding. Bowel sounds present. GENITOURINARY: Without palpable bladder distension. MUSCULOSKELETAL: Extremities without clubbing, cyanosis. Trace pedal edema No joint tenderness or effusion noted. No calf tenderness. No mottling or clubbing. NEUROLOGICAL: awake, alert. pt is oriented and answers appropriately. weak. Motor and sensory grossly within normal limits. Follows commands. Cognitively sharp. Moves all extremities. PSYCHIATRIC: flat affect. no apparent hallucinations or other psychotic thought process. Diagnostic Tests Laboratory: Laboratory Results - last 72 hr 10/12/18 10/12/18 10/12/18 04:30 04:30 04:30 WBC 7.6 RBC 3.44 L Hgb 12.0 Hct 36.1 MCV 104.9 H MCH 34.9 H MCHC 33.2 RDW 16.9 Plt Count 116 L MPV 8.8 Neut % (Auto) 77.5 H Lymph % (Auto) 10.4 [place] % (Auto) 8.5 H Eos % (Auto) 2.9 Baso % (Auto) 0.7 Neut # (Auto) 5.9 Lymph # (Auto) 0.8 L [place] # (Auto) 0.6 Eos # (Auto) 0.2 Baso # (Auto) 0.1 WBC Differential . Differential Comment Auto diff final Sodium 137 Potassium 4.1 Chloride 100 Carbon Dioxide 31.2 Anion Gap 6 BUN 17 Creatinine 5.39 H Estimated GFR 8 L POC Glucose Random Glucose 69 L Calcium 11.8 H* D Calcium Adj for Albumin 12.9 H* Albumin 2.6 L PTH Intact 772.1 H Hepatitis A IgM Ab Hep Bs Antigen Hep B Core IgM Ab Hep C IgG Ab 10/12/18 10/13/18 10/13/18 20:15 07:48 07:48 WBC 10.4 RBC 4.15 Hgb 14.4 D Hct 43.8 MCV 105.5 H MCH 34.7 H MCHC 32.9 RDW 17.1 Plt Count 113 L MPV 8.1 Neut % (Auto) 81.5 H Lymph % (Auto) 7.6 L [place] % (Auto) 7.2 Eos % (Auto) 3.2 Baso % (Auto) 0.5 Neut # (Auto) 8.5 H Lymph # (Auto) 0.8 L [place] # (Auto) 0.8 Eos # (Auto) 0.3 Baso # (Auto) 0.1 WBC Differential . Differential Comment Auto diff final Sodium 134 L Potassium 4.9 D Chloride 99 Carbon Dioxide 28.6 Anion Gap 6 BUN 26 H Creatinine 6.79 H Estimated GFR 6 L POC Glucose 94 Random Glucose 70 L Calcium 12.2 H* Calcium Adj for Albumin 13.0 H* Albumin 3.0 L PTH Intact Hepatitis A IgM Ab Hep Bs Antigen Hep B Core IgM Ab Hep C IgG Ab 10/13/18 10/13/18 10/13/18 07:56 08:13 16:00 WBC RBC Hgb Hct MCV MCH MCHC RDW Plt Count MPV Neut % (Auto) Lymph % (Auto) [place] % (Auto) Eos % (Auto) Baso % (Auto) Neut # (Auto) Lymph # (Auto) [place] # (Auto) Eos # (Auto) Baso # (Auto) WBC Differential Differential Comment Sodium Potassium Chloride Carbon Dioxide Anion Gap BUN Creatinine Estimated GFR POC Glucose 65 L 65 L Random Glucose Calcium Calcium Adj for Albumin Albumin PTH Intact Hepatitis A IgM Ab Nonreactive Hep Bs Antigen Nonreactive Hep B Core IgM Ab Nonreactive Hep C IgG Ab Nonreactive 10/13/18 10/14/18 10/14/18 20:42 03:47 07:55 WBC RBC Hgb Hct MCV MCH MCHC RDW Plt Count MPV Neut % (Auto) Lymph % (Auto) [place] % (Auto) Eos % (Auto) Baso % (Auto) Neut # (Auto) Lymph # (Auto) [place] # (Auto) Eos # (Auto) Baso # (Auto) WBC Differential Differential Comment Sodium Potassium Chloride Carbon Dioxide Anion Gap BUN Creatinine Estimated GFR POC Glucose 72 71 95 Random Glucose Calcium Calcium Adj for Albumin Albumin PTH Intact Hepatitis A IgM Ab Hep Bs Antigen Hep B Core IgM Ab Hep C IgG Ab Result Diagrams: 10/13/18 07:48 10/13/18 07:48 Microbiology: Microbiology 10/10/18 11:45 Aerobic Blood Culture - Preliminary Blood - Peripheral No growth in 4 days Anaerobic Blood Culture - Preliminary No growth in 4 days 10/10/18 11:45 Aerobic Blood Culture - Preliminary Blood - Peripheral No growth in 4 days Anaerobic Blood Culture - Preliminary No growth in 4 days 10/10/18 11:50 Urine Culture - Final Catheterized Urine Enterococcus faecium VRE Imaging: ITS Impressions Chest X-Ray 10/10/18 11:19 CONCLUSION: No acute cardiopulmonary disease demonstrated. Head CT 10/10/18 11:19 CONCLUSION: Negative noncontrast head CT. . Abdomen/Pelvis CT 10/10/18 11:20 CONCLUSION: 1. An apparent tiny stone in the proximal left ureter but without associated hydronephrosis or hydroureter. 2. No acute abnormalities are demonstrated. 3. Numerous cysts and nonobstructing stones again seen of both kidneys. 4. Resolved free air. Gastric Emptying Nuclear Medicine 10/14/18 00:00 CONCLUSION: 1. Normal gastric emptying half-time and kinetics. Assessment and Plan - Disease Oriented Problem List (1) Hypercalcemia (2) UTI (urinary tract infection) (3) End stage renal disease on dialysis Pertinent Non-Medical Issues: Psychosocial: Patient is currently , second . She has 2 children. 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 She is originally from [place] and moved to this area in 1990. Spiritual: pastoral care available Legal: Patient is currently capacitated to make medical decisions In the event she loses at capacity she indicates she would want her to make medical decisions on her behalf. Per [place] statute proxy decision making would fall to her anyways. Ethical issues impacting care: none Important Contacts: Isaiah Chavez [phone] Prognosis: This is a 68-year-old female with history of diabetes, ESRD on HD, recurrent UTI , breast cancer, ESBL and peritoneal fluid, A. fib, polycystic kidney disease who presented to ER 10/10 for weakness and LLQ pain. Being treated for UTI. Recent admission for infected peritoneal catheter. Her kidney transplant is on medical hold and pending further cardiac work up. She is dialysis dependent. If not for HD, she would not survive for long. She has a trajectory decline. She is hospice appropriate should she ever decide to cease HD and if goals in line with comfort. Code Status: No Code DNR Plan: - LEGAL DECISION MAKER -patient is currently capacitated to make medical decisions. In the event she becomes incapacitated to do so, in the absence of a designated healthcare surrogate, proxy decision making would fall to her - CODE STATUS- no code/DNR - GOALS - She would still like to pursue kidney transplant. Per transplant team she needs some additional cardiac work up. "If it makes me feel better then I should do it." She would like to do more rehab but wants somewhere other than [facility]. inquiring [place] - SYMPTOMS - * pain - sites include back side, LLQ. on my eval she denies pain. has PRN tramadol, last had 10/11 * weakness - multifactorial. ESRD on HD, has had decreased appetite. c/o feeling weak and lack of energy * nausea - chronic. unclear etiology, GES normal. follows with Dr Vega, has had extensive w/u. has PRN zofran. trial haldol tonight with dinner. she is on a few meds that may prolong QT interval. will hold zofran. QT interval 412 per EKG 10/10 . d/w GABRIELLE Bianchi. - Palliative care will continue to follow during hospital course as condition evolves, to assist patient/decision-maker with understanding of medical conditions, weighing benefits/burdens of treatment options, for clarification of goals of treatment. Additionally will assist with any symptoms of palliative concern
[2018-10-14] MEDS ORDERED: Haloperidol 1 MG Tablet PO ONE (16:30)
--- NOTE | 2018-10-14 17:44 | P.PNIM ---
Subjective Interval history: Pt c/o continued nausea and some difficulties with swallowing. Physical Exam Vital signs: Last Vital Signs Temp 98.1 F 10/14/18 15:25 Pulse 87 10/14/18 15:25 Resp 20 10/14/18 15:25 BP 143/69 H 10/14/18 15:25 Pulse Ox 98 10/14/18 15:25 Narrative: GENERAL: NAD, Awake and alert CARDIO: Regular. RESP: Clear to auscultation. Breath sounds equal bilaterally. ABD: +BS, soft, non-tender, nondistended. Two wound on abdomen, one in the lower left side with clean dressing and packing in place, no erythema or drainage noted. Other wound to the right of midline and also with clean dressing and packing in place, no erythema or drainage noted. EXT: No edema. No obvious deformities. Results Labs CBC & Chem 7: 10/13/18 07:48 10/13/18 07:48 Assessment and Plan Assessment (1) End stage renal disease on dialysis: Code(s): N18.6 - End stage renal disease; Z99.2 - Dependence on renal dialysis Status: Chronic (2) Hypercalcemia: Code(s): E83.52 - Hypercalcemia Status: Acute (3) Dehydration: Code(s): E86.0 - Dehydration Status: Acute (4) UTI (urinary tract infection): Code(s): N39.0 - Urinary tract infection, site not specified Status: Acute Plan Generalized weakness Dehydration Elevated CK - Pt is a 68 y/o female with ESRD on HD (), type 2 DM, chronic anemia, anxiety, and hx of breast cancer. Pt was recently admitted to [facility] in 08/2018 with ESBL peritonitis. Pt had PermCath placed during that admission and was discharged to rehab at the end of that hospitalization. She states that she has not been eating or drinking much of anything for the last few weeks. She states that she did not like the food at rehab and her appetite has been poor. She was at rehab until 10/02/18 and has been home for the last week. - In the ED she had a catheterized UA performed which was abnormal and urine culture with Strep Sp - Pt was given a dose of Rocephin in the ED - Blood cultures with NGTD - Cefepime stopped - UA/Cx --> less than 15K CFU. Colonized. NO treatment - Pts labs appear dehydrated as pt clinically appears dehydrated - Chest X-Ray (10/10/18) -->No acute cardiopulmonary disease demonstrated. - CT Abdomen/Pelvis (10/10/18) 1. An apparent tiny stone in the proximal left ureter but without associated hydronephrosis or hydroureter. 2. No acute abnormalities are demonstrated. 3. Numerous cysts and nonobstructing stones again seen of both kidneys. 4. Resolved free air. - PT daily - Encourage oral intake, add supplements with meals, diet decreased to full liquids on 10/11 due to N/V - Zofran PRN prior to meals - trial of haldol for nausea - GES (10/14) --> negative - Consult Gastroenterology. Possible EGD - Supportive care Nausea/Vomiting - long h/o DM2 - GES (10/14) --> negative - see above ESRD on HD - She has been receiving HD on . - Consulted to Dr. Berumen, her paint technician and she underwent HD on 10/10/18 - Monitor labs Hx A. fib - Cont. Amiodarone 200mg daily, metoprolol 50mg BID, and Cardizem CD 120mg daily Type 2 diabetes controlled by diet - Renal diet back down to full liquids on 10/11 Chronic anemia likely secondary to end-stage renal disease on peritoneal dialysis - Labs at admission with Hgb 12.4 but pt appears dehydrated so this is likely hemoconcentration - Repeat labs are stable DVT prophylaxis with SCDs Progress Note: Quality VTE Deep Vein Thrombosis/Pulmonary Embolism Present on Admission: No _ (1) UTI (urinary tract infection) Qualifiers: Encounter type: Hematuria presence: Indwelling urinary catheter type: Urinary tract infection type:
[2018-10-14 18:42] LABS: Albumin 2.6 g/dL (3.4-5.0); Carbon Dioxide 31.9 meq/L (21.0-32.0); Phosphorus 3.4 mg/dL (2.5-4.9); Potassium 4.3 meq/L (3.5-5.1)
[2018-10-15 07:57] LABS: Albumin 2.5 g/dL (3.4-5.0); Calcium 10.7 mg/dL (8.5-10.1); Carbon Dioxide 30.4 meq/L (21.0-32.0); Phosphorus 3.8 mg/dL (2.5-4.9); Potassium 4.4 meq/L (3.5-5.1)
[2018-10-15] MEDS: Amiodarone 200 MG Tablet PO SCH (09:35)
[2018-10-15] MEDS: Mirtazapine 15 MG Tablet PO SCH (09:35)
[2018-10-15] MEDS: Vitamins A,C,E/Lutein/Minerals Tablet PO SCH (09:35)
[2018-10-15] MEDS: BACILLUS COAGULANS PO SCH (09:37)
[2018-10-15] MEDS: Senna/Docusate Sodium 8.6/50 MG Tablet PO SCH ×2 (09:37→22:20)
--- NOTE | 2018-10-15 11:24 | P.PNNP ---
Subjective Interval history: patient is doing better seen during dialysis Physical Exam Vital signs: Vital Signs 10/14/18 15:25 10/14/18 20:35 10/15/18 00:35 Temperature 98.1 F 98.5 F 97.9 F Pulse Rate 87 66 64 Respiratory Rate 20 20 20 Blood Pressure 143/69 H 144/65 H 120/77 Pulse Oximetry 98 97 96 10/15/18 04:30 10/15/18 08:10 Temperature 97.5 F L 97.8 F Pulse Rate 63 61 Respiratory Rate 20 20 Blood Pressure 144/62 H 146/67 H Pulse Oximetry 98 99 Intake & Output 10/14/18 10/15/18 10/15/18 18:59 06:59 18:59 Weight 86.8 kg Other: # Voids 1 Narrative: GENERAL: Well-nourished, well-developed patient. SKIN: Warm and dry. HEAD: Normocephalic. EYES: No scleral icterus. No injection or drainage. NECK: Supple, trachea midline. No JVD or lymphadenopathy. CARDIOVASCULAR: Regular rate and rhythm without murmurs, gallops, or rubs. Right subclavian permacath noted, site clean. RESPIRATORY: Breath sounds equal bilaterally. No accessory muscle use. GASTROINTESTINAL: Abdomen soft, non-tender, nondistended. EXTREMITIES: No edema dry skin NEUROLOGICAL: Awake, alert, and oriented x 3. Non-focal. Assessment and Plan - Assessment (1) End stage renal disease on dialysis Code(s): N18.6 - End stage renal disease; Z99.2 - Dependence on renal dialysis Status: Chronic Plan: Patient seen during hemodialysis 2 L of ultrafiltration, on 3K bath tolerating it well Calcium improved to 10.7 corrected calcium 11.2 -Continue to monitor -Continue supportive care (2) Hypercalcemia Code(s): E83.52 - Hypercalcemia Status: Acute Plan: Current corrected calcium is 11.2, PTH 772, patient does have known secondary hyperparathyroidism Sensipar was increased to 90 mg daily on 10/12/2018.. Increased calcium could also be secondary to being sedentary, dehydration. I do not see any medications that would cause an increase in calcium -Continue with Sensipar 90 mg daily. In the past, she did have complaints of upset stomach with Sensipar. There is question of whether or not this patient is compliant with this medication. Tumor markers can be sent to look out for any other cause (3) Dehydration Code(s): E86.0 - Dehydration Status: Acute Plan: Patient has been doing better she said eating improved and she would like to be discharged. (4) UTI (urinary tract infection) Code(s): N39.0 - Urinary tract infection, site not specified Status: Acute Plan: Cefepime stopped - UA/Cx --> less than 15K CFU. Colonized. NO treatment
[2018-10-15] MEDS: Heparin 10,000 UNITS/10 ML Vial (for IV use) OTHER PRN (12:46)
--- NOTE | 2018-10-15 13:08 | P.CONGI ---
History of Present Illness Consult date: 10/15/18 Consult reason: Dysphagia, Nausea, vomiting Chief complaint: UTI, generalized weakness, elevated CK History of Present Illness: 68 year old female with history of end-stage renal disease, atrial fibrillation , hypertension, diabetes, diverticulosis, GERD admitted on 10/10 with complaint of weakness, fatigue, dizziness, and an episode of vomiting consulted to GI for concern of intractable nausea and vomiting and difficulty swallowing. She was recently hospitalized 08/2019 for ESBL peritonitis during which she had permcath placed and was discharged to rehab stable. She reported having poor appetite after admission that is persistent. Per ER report catheterizes UA was abnormal and she was found to be dehydrated. Throughout hospitalization, urine cultures were found positive for strep species s/p rocephin treatment now, blood cultures negative, CT abdomen/pelvis was performed and found a nonobstructing ureter stone and no acute abnormalities. She has continue to complain of nausea with vomiting on one occasion. She complains of vague abdominal pain in lower left quadrant near her previous dialysis entrance site. She reports she has difficulty swallowing one of her pills, feels as if it causes her to gag but does not vomit. Hospitalist recommended zofran without resolution. Last night she was given Halodol for nausea with good result. She was seen eating soft diet and drinking sips of water with her medications without evidence of dysphagia or difficulty. Patient is known to Dr Vega and reports she has had EGD and colonoscopy in the last year for her GERD. Patient reports she is feeling much better and that her nausea is improved from previous days with use of halodol, her appetite is better and her abdominal discomfort is improving. Review of Systems All other systems reviewed negative except as stated in HPI PMFSH - History History Provided By: Patient - Medical History Medical History: Medical History (Last Reviewed 10/15/18 @ 08:38 by Georgina Loaiza) History of infection with vancomycin resistant Enterococcus (VRE) Onset Date: ~10/10/18 Anemia Diabetes ESRD (end stage renal disease) H/O History of breast cancer History of diverticulitis History of infection due to ESBL Escherichia coli Onset Date: ~08/07/18 History of toe fracture History of wrist fracture Hypertension PKD (polycystic kidney disease) Paroxysmal A-fib Ulcer - Surgical History Surgical History: Surgical History (Last Reviewed 10/15/18 @ 08:38 by Georgina Loaiza) History of lumpectomy of left breast Hx of cholecystectomy - Family History Family History: Family History (Last Reviewed 10/15/18 @ 08:38 by Georgina Loaiza) Father Congestive heart failure COPD (chronic obstructive pulmonary disease) Mother Congestive heart failure COPD (chronic obstructive pulmonary disease) Daughter Polycystic kidney disease Sister Polycystic kidney disease - Tobacco History Second Hand Smoke Exposure: No Smoking Status: Never smoker - Alcohol History How Often Do You Have a Drink Containing Alcohol: Never - Substance Use History Substance History: No History of Abuse - Travel History Recent Travel in the [place] Within the Last 8 Weeks: No Recent Travel Out of the Country Within the Last 8 Weeks: No - Immunization History Tetanus Immunization: <5 Years Medications and Allergies Active Medications: Active Medications Al Hydroxide/Mg Hydroxide (Milk Of Jose Yap) 30 ml PO Q12H PRN PRN Reason: Mild Constipation Alprazolam (Xanax) 0.5 mg PO TID PRN PRN Reason: Anxiety Amiodarone HCl (Cordarone) 200 mg PO DAILY [facility] Last Admin: 10/15/18 09:35 Dose: 200 mg Bisacodyl (Dulcolax Supp) 10 mg RECTAL DAILY PRN PRN Reason: SEVERE CONSITIPATION Cinacalcet (Sensipar) 90 mg PO DAILY [facility] Last Admin: 10/15/18 09:35 Dose: 90 mg Clonidine HCl (Catapres) 0.1 mg PO UNSCH PRN PRN Reason: SEE LABEL COMMENTS Cyproheptadine HCl (Periactin) 4 mg PO BID [facility] Last Admin: 10/15/18 09:34 Dose: 4 mg Diltiazem HCl (Cardizem Cd 24hr) 120 mg PO DAILY [facility] Last Admin: 10/14/18 11:08 Dose: 120 mg Diphenhydramine HCl (Benadryl) 25 mg PO UNSCH PRN PRN Reason: SEE LABEL COMMENTS Gelatin (Gelfoam 12 Mm/7 Mm Topical) 1 foam TOPICAL PRN PRN PRN Reason: help stop bleeding from site Gentamicin Sulfate (Gentamicin Inj) 20 mg OTHER WITH DIALYSIS PRN PRN Reason: Dwell Gentamycin Lock Last Admin: 10/13/18 16:48 Dose: 20 mg Heparin Sodium (Porcine) (Heparin Inj) 8,000 units OTHER WITH DIALYSIS PRN PRN Reason: for machine prime Heparin Sodium (Porcine) (Heparin Inj) 1,000 units OTHER WITH DIALYSIS PRN PRN Reason: Dwell Heparin to Fill Catheter Last Admin: 10/13/18 16:48 Dose: 1,000 units Sodium Chloride (Ns Inj) 1,000 mls @ 0 mls/hr OTHER .Q0M PRN PRN Reason: for prime and rinse back Last Infusion: 10/10/18 21:53 Dose: Infused Sodium Chloride (Ns Inj) 1,000 mls @ 200 mls/hr OTHER .Q5H PRN PRN Reason: for dialyzer flush PRN Sodium Chloride (Ns Inj) 1,000 mls @ 0 mls/hr IV.CONT .Q0M PRN PRN Reason: hypotension / volume replace Albumin Human (Flexbumin 25% Inj) 100 mls @ 60 mls/hr IV.SIG WITH DIALYSIS PRN PRN Reason: hypotension / volume replace Last Infusion: 10/10/18 21:52 Dose: Infused Lactulose (Lactulose Liq) 30 ml PO DAILY PRN PRN Reason: SEVERE CONSITIPATION Mannitol (Mannitol Inj) 12.5 gm IV.PUSH UNSCH PRN PRN Reason: hypotension / volume replace Metoprolol Tartrate (Lopressor) 50 mg PO BID [facility] Last Admin: 10/14/18 21:41 Dose: 50 mg Mirtazapine (Remeron) 30 mg PO DAILY [facility] Last Admin: 10/15/18 09:35 Dose: 30 mg Miscellaneous (Pill Splitter) 1 each OTHER UNSCH PRN PRN Reason: SEE LABEL COMMENTS Multivitamins/Minerals (Ocuvite With Lutein) 1 tab PO DAILY [facility] Last Admin: 10/15/18 09:35 Dose: 1 tab Nitroglycerin (Nitrostat Sl) 0.4 mg SL Q5M PRN PRN Reason: CHEST PAIN Ondansetron HCl (Zofran Inj) 4 mg IV.PUSH Q4H PRN PRN Reason: NAUSEA OR VOMITING Last Admin: 10/12/18 16:41 Dose: 4 mg Ondansetron HCl (Zofran Inj) 4 mg IV.PUSH UNSCH PRN PRN Reason: NAUSEA OR VOMITING Pom: (Bacillus Coagulans [Digestive Advantage] 1 Tab) 0 each PO DAILY [facility] Last Admin: 10/15/18 09:37 Dose: 1 each Senna/Docusate Sodium (Marta-Colace) 1 tab PO BID [facility] Last Admin: 10/15/18 09:37 Dose: Not Given Sennosides (Senokot) 17.2 mg PO Q12H PRN PRN Reason: Moderate Constipation Sevelamer Carbonate (Renvela) 3,200 mg PO TID [facility] Last Admin: 10/15/18 09:37 Dose: Not Given Sodium Chloride (Ns Flush) 2 ml IV.FLUSH BID [facility] Last Admin: 10/15/18 09:36 Dose: 2 ml Sodium Chloride (Ns Flush) 2 ml IV.FLUSH PRN PRN PRN Reason: FLUSH AFTER USING IV ACCESS Sodium Chloride (Ns Flush) 5 ml IV.FLUSH PRN PRN PRN Reason: flush each lumen during HD Tramadol HCl (Ultram) 50 mg PO Q6H PRN PRN Reason: Pain 1-10 Last Admin: 10/11/18 11:01 Dose: 50 mg Allergies Allergy/AdvReac Type Severity Reaction Status Date / Time codeine Allergy Severe NAUSEA/VOMI Verified 10/10/18 11:27 TING morphine Allergy Severe MIGRAINES Verified 10/10/18 11:27 acetaminophen Allergy Intermediate ITCHING Verified 10/10/18 11:27 latex Allergy Intermediate Rash Verified 10/10/18 11:27 oxycodone Allergy Intermediate ITCHING Verified 10/10/18 11:27 doxycycline AdvReac Severe GI UPSET Verified 10/10/18 11:27 Home Medications Medication Instructions Recorded Confirmed Type amiodarone 200 mg PO DAILY 05/13/18 10/10/18 History cinacalcet [Sensipar] 60 mg PO DAILY 05/13/18 10/10/18 History Bacillus coagulans [Digestive 1 tab PO DAILY 08/07/18 10/10/18 History Advantage] dicyclomine 20 mg PO TIDAC 08/07/18 10/10/18 History docusate sodium [Colace] 100 mg PO DAILY PRN 08/07/18 10/10/18 History metoprolol tartrate 50 mg PO BID 08/07/18 10/10/18 History sevelamer carbonate [Renvela] 3,200 mg PO QID 08/07/18 10/10/18 History B complex with C#20-folic acid 1 cap PO DAILY 10/10/18 10/10/18 History [Triphrocaps] amiodarone 200 mg PO DAILY 10/10/18 10/10/18 History linezolid 600 mg PO Q12H 10/10/18 10/10/18 History [id number]-[id number] [Creon] 6,000 units PO TID 10/10/18 10/10/18 History mirtazapine [Remeron] 30 mg PO DAILY 10/10/18 10/10/18 History tramadol 50 mg PO Q6H PRN 10/10/18 10/10/18 History Exam Vital signs: Vital Signs 10/14/18 15:25 10/14/18 20:35 10/15/18 00:35 Temperature 98.1 F 98.5 F 97.9 F Pulse Rate 87 66 64 Respiratory Rate 20 20 20 Blood Pressure 143/69 H 144/65 H 120/77 Pulse Oximetry 98 97 96 10/15/18 04:30 10/15/18 08:10 Temperature 97.5 F L 97.8 F Pulse Rate 63 61 Respiratory Rate 20 20 Blood Pressure 144/62 H 146/67 H Pulse Oximetry 98 99 Intake & Output 10/14/18 10/15/18 10/15/18 18:59 06:59 18:59 Weight 86.8 kg Other: # Voids 1 Narrative: Sitting comfortably in bed, sipping on water while taking medications and eating soft diet. - Constitutional no acute distress - Routine HEENT Exam Head: Present: normocephalic, atraumatic Eye: Present: EOMI. Absent: conjunctival icterus ENT: Present: mucous membranes moist - Routine Respiratory Exam Absent: accessory muscle use, decreased breath sounds, rales, rhonchi, stridor - Routine Cardiovascular Exam Present: RRR, S1, S2 - Routine Abdominal Exam Present: soft, normoactive bowel sounds, tenderness. Absent: guarding, organomegaly Comments: left lower quadrant, at healing site of her previous peritoneal dialysis - Routine Extremities Exam Present: edema. Absent: cyanosis - Routine Neurological Exam Present: alert, oriented X3 Results - Labs CBC & Chem 7: 10/13/18 07:48 10/15/18 06:56 Labs: Laboratory Results - last 24 hr 10/14/18 10/14/18 10/15/18 17:30 21:39 06:56 Sodium 139 139 Potassium 4.3 4.4 Chloride 101 101 Carbon Dioxide 31.9 30.4 Anion Gap 6 8 BUN 20 H 22 H Creatinine 5.39 H 6.09 H Estimated GFR 8 L 7 L POC Glucose 86 Random Glucose 86 86 Calcium 11.0 H D 10.7 H Phosphorus 3.4 3.8 Albumin 2.6 L 2.5 L 10/15/18 08:03 Sodium Potassium Chloride Carbon Dioxide Anion Gap BUN Creatinine Estimated GFR POC Glucose 77 Random Glucose Calcium Phosphorus Albumin Assessment and Plan - Plan Assessment: 68 year old female with endstage kidney disease, diabetes, chronic anemia, GERD, diverticulosis with nausea/vomiting and possible dysphagia. Gastric emptying study normal, gastroparesis less likely. Hepatitis panel negative. Known gastritis and GERD likely acute on chronic. Patient hgb stable and above baseline, no evidence of acute upper GI bleed. plan - modified barium pill swallow to evaluate for dysphagia however patient refusing at this time. will wait to see improved with change in treatment - GI will sign off at this time, please notify if any further assistance needed Patient seen and discussed with Dr. Rayray Jones MS4
[2018-10-15] MEDS: Metoprolol Tartrate 50 MG Tablet PO SCH ×2 (15:07→22:21)
[2018-10-15] MEDS: dilTIAZem CD 120 MG Capsule PO SCH (15:07)
--- NOTE | 2018-10-15 17:27 | P.PNIM ---
Subjective Interval history: swallowing better today. Pt feels that she can NOT tolerate renvela Pt denies n/v. Pt c/o constipation. Pt requesting discharge to home [facility]. Physical Exam Vital signs: Last Vital Signs Temp 97.8 F 10/15/18 16:10 Pulse 84 10/15/18 16:10 Resp 20 10/15/18 16:10 BP 116/58 L 10/15/18 16:10 Pulse Ox 98 10/15/18 16:10 Narrative: GENERAL: NAD, Awake and alert CARDIO: Regular. RESP: Clear to auscultation. Breath sounds equal bilaterally. ABD: +BS, soft, non-tender, nondistended. Two wound on abdomen, one in the lower left side with clean dressing and packing in place, no erythema or drainage noted. Other wound to the right of midline and also with clean dressing and packing in place, no erythema or drainage noted. EXT: No edema. No obvious deformities. Results Labs CBC & Chem 7: 10/13/18 07:48 10/15/18 06:56 Assessment and Plan Assessment (1) End stage renal disease on dialysis: Code(s): N18.6 - End stage renal disease; Z99.2 - Dependence on renal dialysis Status: Chronic (2) Hypercalcemia: Code(s): E83.52 - Hypercalcemia Status: Acute (3) Dehydration: Code(s): E86.0 - Dehydration Status: Acute (4) UTI (urinary tract infection): Code(s): N39.0 - Urinary tract infection, site not specified Status: Acute Plan Generalized weakness Dehydration Elevated CK - Pt is a 68 y/o female with ESRD on HD (), type 2 DM, chronic anemia, anxiety, and hx of breast cancer. Pt was recently admitted to [facility] [place] in 08/2018 with ESBL peritonitis. Pt had PermCath placed during that admission and was discharged to rehab at the end of that hospitalization. She states that she has not been eating or drinking much of anything for the last few weeks. She states that she did not like the food at rehab and her appetite has been poor. She was at rehab until 10/02/18 and has been home for the last week. - In the ED she had a catheterized UA performed which was abnormal and urine culture with Strep Sp - Pt was given a dose of Rocephin in the ED - Blood cultures with NGTD - Cefepime stopped - UA/Cx --> less than 15K CFU. Colonized. NO treatment - Pts labs appear dehydrated as pt clinically appears dehydrated - Chest X-Ray (10/10/18) -->No acute cardiopulmonary disease demonstrated. - CT Abdomen/Pelvis (10/10/18) 1. An apparent tiny stone in the proximal left ureter but without associated hydronephrosis or hydroureter. 2. No acute abnormalities are demonstrated. 3. Numerous cysts and nonobstructing stones again seen of both kidneys. 4. Resolved free air. - PT daily - Encourage oral intake, add supplements with meals, diet decreased to full liquids on 10/11 due to N/V - Zofran PRN prior to meals - Supportive care Nausea/Vomiting - long h/o DM2 - GES --> negative - haldol prn nausa - improved - Pt feels that she can NOT tolerate renvela - pt requesting discharge - anticipate discharge to home with HHC/PT 10/16/18 ESRD on HD - She has been receiving HD on . - Consulted to Dr. 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 Berumen (10/16). Formulary limited at [place]. He will further address pt's hypercalcemia outpt. Hx A. fib - Cont. Amiodarone 200mg daily, metoprolol 50mg BID, and Cardizem CD 120mg daily Type 2 diabetes controlled by diet - Renal diet back down to full liquids on 10/11 Chronic anemia likely secondary to end-stage renal disease on peritoneal dialysis - Labs at admission with Hgb 12.4 but pt appears dehydrated so this is likely hemoconcentration - Repeat labs are stable DVT prophylaxis with SCDs Progress Note: Quality VTE Deep Vein Thrombosis/Pulmonary Embolism Present on Admission: No _ (1) UTI (urinary tract infection) Qualifiers: Encounter type: Hematuria presence: Indwelling urinary catheter type: Urinary tract infection type:
[2018-10-15] MEDS ORDERED: Bisacodyl 10 MG Supp RECTAL ONE (17:44)
[2018-10-16] MEDS: Amiodarone 200 MG Tablet PO SCH (10:06)
[2018-10-16] MEDS: Senna/Docusate Sodium 8.6/50 MG Tablet PO SCH ×2 (10:06→22:50)
[2018-10-16] MEDS: dilTIAZem CD 120 MG Capsule PO SCH (10:06)
[2018-10-16] MEDS: Mirtazapine 15 MG Tablet PO SCH (10:06)
[2018-10-16] MEDS: Vitamins A,C,E/Lutein/Minerals Tablet PO SCH (10:06)
[2018-10-16] MEDS: Metoprolol Tartrate 50 MG Tablet PO SCH ×2 (10:07→22:50)
[2018-10-16] MEDS: BACILLUS COAGULANS PO SCH (10:07)
--- NOTE | 2018-10-16 13:03 | P.PNNP ---
Subjective Interval history: Patient is waiting to get discharge she is feeling okay Physical Exam Vital signs: Vital Signs 10/15/18 16:10 10/15/18 20:00 10/16/18 00:30 Temperature 97.8 F 98.1 F 98.1 F Pulse Rate 84 104 H 76 Respiratory Rate 20 20 20 Blood Pressure 116/58 L 127/84 155/65 H Pulse Oximetry 98 96 96 10/16/18 04:40 10/16/18 08:00 10/16/18 11:10 Temperature 98 F 98.2 F 97.9 F Pulse Rate 69 67 74 Respiratory Rate 20 18 18 Blood Pressure 123/66 151/65 H 99/64 L Pulse Oximetry 96 96 99 Intake & Output 10/15/18 10/16/18 10/16/18 18:59 06:59 18:59 Intake Total 720 / 720 Output Total 1999 Balance -1280 / -1280 Weight 87 kg Intake: Oral 720 / 720 Output: Hemodialysis Amount 1999 Other: # Voids 1 3 Date of Last Bowel Movement 10/15/18 # Bowel Movements 1 1 Narrative: GENERAL: Well-nourished, well-developed patient. SKIN: Warm and dry. HEAD: Normocephalic. EYES: No scleral icterus. No injection or drainage. NECK: Supple, trachea midline. No JVD or lymphadenopathy. CARDIOVASCULAR: Regular rate and rhythm without murmurs, gallops, or rubs. RESPIRATORY: Breath sounds equal bilaterally. No accessory muscle use. GASTROINTESTINAL: Abdomen soft, non-tender, nondistended. Bandage in place EXTREMITIES: No edema NEUROLOGICAL: Awake, alert, and oriented x 3. Non-focal. Assessment and Plan - Assessment (1) End stage renal disease on dialysis Code(s): N18.6 - End stage renal disease; Z99.2 - Dependence on renal dialysis Status: Chronic Plan: Patient on hemodialysis done yesterday 2 L off, patient is not taking Renvela She said she develops dysphagia as the spells are large and she cannot even swallow it with applesauce I change it to Fosrenol 1 g 3 times daily I spoke to Dr. Capps as I do not know these will be covered as outpatient Calcium improved to 10.7 corrected calcium 11.2 workup for tumor markers CEA is slightly elevated other markers CA 199, CA 153 are negative -Continue to monitor -Continue supportive care (2) Hypercalcemia Code(s): E83.52 - Hypercalcemia Status: Acute Plan: Current corrected calcium is 11.2, PTH 772, Fosrenol added in place of Renvela -Continue with Sensipar 90 mg daily. In the past, she did have complaints of upset stomach with Sensipar. There is question of whether or not this patient is compliant with this medication. Tumor markers CEA slightly elevated nonspecific finding Follow-up with GI as outpatient may need to consider colonoscopy (3) Dehydration Code(s): E86.0 - Dehydration Status: Acute Plan: Patient has been doing better she said eating improved and she would like to be discharged. (4) UTI (urinary tract infection) Code(s): N39.0 - Urinary tract infection, site not specified Status: Acute Plan: Cefepime stopped - UA/Cx --> less than 15K CFU. Colonized. NO treatment
--- NOTE | 2018-10-16 13:03 | P.PNPAL ---
Reason for Visit Reason for visit: a. To assist with evaluation and management of symptoms including: weakness, pain, nausea b. To assist medical decision maker(s) with: better understanding of current medical conditions; weighing benefits/burdens of medical treatment options; making medical treatment decisions. Subjective Subjective/Interval History: GI consulted for dysphagia with pills, mainly renvela which pt now doesnt want to take. Pt refused MBS offered by GI to evaluate dysphagia. Pt seen in room, no family at bedside. She says the one time dose haldol helped with her nausea and feels it is improved. She denies pain. She wants to go home, expresses frustration. "I did my therapy this morning..I sat in the chair for an hour and walked around the room...I feel like I'm taking up a bed that someone else might need." I told her if the nausea returns, she should discuss with her outpt providers another trial of haldol. Conversation generally limited to her expressing desire for d/c. Objective Vital Signs: Vital Signs 10/15/18 16:10 10/15/18 20:00 10/16/18 00:30 Temperature 97.8 F 98.1 F 98.1 F Pulse Rate 84 104 H 76 Respiratory Rate 20 20 20 Blood Pressure 116/58 L 127/84 155/65 H Pulse Oximetry 98 96 96 10/16/18 04:40 10/16/18 08:00 10/16/18 11:10 Temperature 98 F 98.2 F 97.9 F Pulse Rate 69 67 74 Respiratory Rate 20 18 18 Blood Pressure 123/66 151/65 H 99/64 L Pulse Oximetry 96 96 99 Intake & Output 10/15/18 10/16/18 10/16/18 18:59 06:59 18:59 Intake Total 720 / 720 Output Total 1999 Balance -1280 / -1280 Weight 87 kg Intake: Oral 720 / 720 Output: Hemodialysis Amount 1999 Other: # Voids 1 3 Date of Last Bowel Movement 10/15/18 # Bowel Movements 1 1 Physical Exam: CONSTITUTIONAL/GENERAL: This is an obese female pt TUBES/LINES/DRAINS: PIV SKIN: No jaundice, rashes, or lesions. + Ecchymoses on upper extremities. No wounds seen anteriorly. Skin temperature appropriate. Not diaphoretic. HEAD: Atraumatic. Normocephalic. EYES: Pupils equal and round and reactive. Extraocular motions intact. No scleral icterus. No injection or drainage. Fundi not examined. ENT: Hearing grossly normal. Nose without bleeding or purulent drainage. NECK: Trachea midline. Supple, nontender. CARDIOVASCULAR: RRR + faint murmur, gallops, or rubs. No JVD. Peripheral pulses symmetric. RESPIRATORY/CHEST: Symmetric, unlabored respirations. Clear to auscultation. Breath sounds equal bilaterally. No wheezes, rales, or rhonchi. GASTROINTESTINAL: Abdomen soft, non-tender, obese. No hepato-splenomegaly, or palpable masses. No guarding. Bowel sounds present. GENITOURINARY: Without palpable bladder distension. MUSCULOSKELETAL: Extremities without clubbing, cyanosis. Trace pedal edema No joint tenderness or effusion noted. No calf tenderness. No mottling or clubbing. NEUROLOGICAL: awake, alert. pt is oriented and answers appropriately. weak. Motor and sensory grossly within normal limits. Follows commands. Cognitively sharp. Moves all extremities. PSYCHIATRIC: mildly anxious. no apparent hallucinations or other psychotic thought process. Diagnostic Tests Laboratory: Laboratory Results - last 72 hr 10/13/18 10/13/18 10/14/18 16:00 20:42 03:47 Sodium Potassium Chloride Carbon Dioxide Anion Gap BUN Creatinine Estimated GFR POC Glucose 72 71 Random Glucose Calcium Phosphorus Albumin Carcinoembryonic Ag CA 15-3 Antigen CA 19-9 Antigen CA 125 Antigen Hepatitis A IgM Ab Nonreactive Hep Bs Antigen Nonreactive Hep B Core IgM Ab Nonreactive Hep C IgG Ab Nonreactive 10/14/18 10/14/18 10/14/18 07:55 17:30 21:39 Sodium 139 Potassium 4.3 Chloride 101 Carbon Dioxide 31.9 Anion Gap 6 BUN 20 H Creatinine 5.39 H Estimated GFR 8 L POC Glucose 95 86 Random Glucose 86 Calcium 11.0 H D Phosphorus 3.4 Albumin 2.6 L Carcinoembryonic Ag CA 15-3 Antigen CA 19-9 Antigen CA 125 Antigen Hepatitis A IgM Ab Hep Bs Antigen Hep B Core IgM Ab Hep C IgG Ab 10/15/18 10/15/18 10/15/18 06:56 08:03 13:18 Sodium 139 Potassium 4.4 Chloride 101 Carbon Dioxide 30.4 Anion Gap 8 BUN 22 H Creatinine 6.09 H Estimated GFR 7 L POC Glucose 77 91 Random Glucose 86 Calcium 10.7 H Phosphorus 3.8 Albumin 2.5 L Carcinoembryonic Ag CA 15-3 Antigen CA 19-9 Antigen CA 125 Antigen Hepatitis A IgM Ab Hep Bs Antigen Hep B Core IgM Ab Hep C IgG Ab 10/15/18 10/15/18 10/15/18 15:33 15:33 15:33 Sodium Potassium Chloride Carbon Dioxide Anion Gap BUN Creatinine Estimated GFR POC Glucose Random Glucose Calcium Phosphorus Albumin Carcinoembryonic Ag 7.3 H CA 15-3 Antigen CA 19-9 Antigen 34.8 CA 125 Antigen 27.6 Hepatitis A IgM Ab Hep Bs Antigen Hep B Core IgM Ab Hep C IgG Ab 10/15/18 10/15/18 10/16/18 15:33 20:52 08:25 Sodium Potassium Chloride Carbon Dioxide Anion Gap BUN Creatinine Estimated GFR POC Glucose 102 94 Random Glucose Calcium Phosphorus Albumin Carcinoembryonic Ag CA 15-3 Antigen 15.8 CA 19-9 Antigen CA 125 Antigen Hepatitis A IgM Ab Hep Bs Antigen Hep B Core IgM Ab Hep C IgG Ab Result Diagrams: 10/13/18 07:48 10/15/18 06:56 Microbiology: Microbiology 10/10/18 11:45 Aerobic Blood Culture - Final Blood - Peripheral No growth in 5 days Anaerobic Blood Culture - Final No growth in 5 days 10/10/18 11:45 Aerobic Blood Culture - Final Blood - Peripheral No growth in 5 days Anaerobic Blood Culture - Final No growth in 5 days Imaging: ITS Impressions Chest X-Ray 10/10/18 11:19 CONCLUSION: No acute cardiopulmonary disease demonstrated. Head CT 10/10/18 11:19 CONCLUSION: Negative noncontrast head CT. . Abdomen/Pelvis CT 10/10/18 11:20 CONCLUSION: 1. An apparent tiny stone in the proximal left ureter but without associated hydronephrosis or hydroureter. 2. No acute abnormalities are demonstrated. 3. Numerous cysts and nonobstructing stones again seen of both kidneys. 4. Resolved free air. Gastric Emptying Nuclear Medicine 10/14/18 00:00 CONCLUSION: 1. Normal gastric emptying half-time and kinetics. Assessment and Plan - Disease Oriented Problem List (1) Hypercalcemia (2) UTI (urinary tract infection) (3) End stage renal disease on dialysis Pertinent Non-Medical Issues: Psychosocial: Patient is currently , second . She has 2 children. 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 She is originally from [place] and moved to this area in 1990. Spiritual: pastoral care available Legal: Patient is currently capacitated to make medical decisions In the event she loses at capacity she indicates she would want her to make medical decisions on her behalf. Per [place] statute proxy decision making would fall to her anyways. Ethical issues impacting care: none Important Contacts: Isaiah Chavez [phone] Prognosis: This is a 68-year-old female with history of diabetes, ESRD on HD, recurrent UTI , breast cancer, ESBL and peritoneal fluid, A. fib, polycystic kidney disease who presented to ER 10/10 for weakness and LLQ pain. Being treated for UTI. Recent admission for infected peritoneal catheter. Her kidney transplant is on medical hold and pending further cardiac work up. She is dialysis dependent. If not for HD, she would not survive for long. She has a trajectory decline. She is hospice appropriate should she ever decide to cease HD and if goals in line with comfort. Code Status: No Code DNR Plan: - LEGAL DECISION MAKER -patient is currently capacitated to make medical decisions. In the event she becomes incapacitated to do so, in the absence of a designated healthcare surrogate, proxy decision making would fall to her - CODE STATUS- no code/DNR - GOALS - Pt asking to be d/c. Has expressed desire to continue w/u for kidney transplant. - SYMPTOMS - * pain - sites include back side, LLQ. on my eval she denies pain. has PRN tramadol, last had 10/11 * weakness - multifactorial. ESRD on HD, has had decreased appetite. participating more in therapy now * nausea - chronic. unclear etiology, GES normal. follows with Dr Vega, has had extensive w/u. has PRN zofran. successful trial of haldol for nausea. she is on a few meds that may prolong QT interval. QT interval 412 per EKG 10/10. recommend 0.5 mg haldol q8h PRN nausea - d/w RN - Palliative care will continue to follow during hospital course as condition evolves, to assist patient/decision-maker with understanding of medical conditions, weighing benefits/burdens of treatment options, for clarification of goals of treatment. Additionally will assist with any symptoms of palliative concern
--- NOTE | 2018-10-16 15:22 | P.DS ---
DS: Providers Date of admission: 10/12/18 08:33 Primary care physician: Christopher Park Consults: 10/10/18 13:33 Consult to Nephrology Routine Consulting Provider: Josh Berumen Does the patient have a Clinical Specialist Vascular who follows them?: Yes Preferred Nephrology Yard Truck Driver:: Josh Berumen Reason for Consultation: ESRD on HD Notified:: Service Spoke with:: AMINTA Date Notified:: 10/10/18 Time Notified:: 13:46 Ordering Provider: BRIELLE 10/10/18 13:41 Consult to Nephrology Routine Consulting Provider: Josh Berumen Does the patient have a Clinical Specialist Vascular who follows them?: Yes Preferred Nephrology Yard Truck Driver:: Josh Berumen Reason for Consultation: esrd requiring dialysis Ordering Provider: JOY 10/12/18 10:35 Consult to Palliative Care Routine Consulting Provider: Leydi Camacho Preferred Yard Truck Driver:: Douglas Fisher Reason for Consultation: clarification of goals Notified:: Service Spoke with:: Glenn Date Notified:: 10/12/18 Time Notified:: 10:50 Ordering Provider: SARI 10/12/18 12:17 HUB Only Consult Order Routine Consulting Provider: Belkis Vivas 10/14/18 17:41 Consult to Gastroenterology Routine Consulting Provider: Stanley Seo V Preferred Yard Truck Driver:: Stanley Seo Reason for Consultation: nausea dysphagia Notified:: Office Spoke with:: EVA Date Notified:: 10/14/18 Time Notified:: 17:47 Ordering Provider: SARI Brief History from admission: Mrs. Chavez is a 68 y/o female with ESRD on HD (), type 2 DM, chronic anemia, anxiety, and hx of breast cancer. Pt was [place] [facility] with [place]BL peritonitis. Pt had PermCath placed during that admission and was discharged to rehab at the end of that hospitalization. She states that she has not been eating or drinking much of anything for the last few weeks. She states that she did not like the food at rehab and her appetite was poor. She was at rehab until 10/02/18 and has been home for the last week. She has been receiving HD on . She did not get dialyzed today. When she left the rehab she was using a wheelchair. She was able to use a walker to get to the bathroom but requires assistance from her to get up off the commode or out of the wheelchair. She normally urinates about 1 time per week and denies any dysuria. In the ED she had a catheterized UA performed which was abnormal and urine culture is pending. Pts labs appear that she is dehydrated and the pt feels very dehydrated. She denies any diarrhea. She feels more constipated, with no BM in 2 days. Pt has overall felt very weak. Denies any fevers or chills. She reported having an episode of vomiting in the last few days and today had had some vague lower abd discomfort. Denies any reflux, nausea, chest pain, SOB or palpitations. Pt states that she has been leaving out some of her medications at home. Typically the ones she is supposed to take with meals she has been skipping. Past medical history: Hx of peritonitis with ESBL Hx of C. difficile Anxiety Type 2 diabetes controlled by diet Hx of A. fib Chronic anemia ESRD on HD via PermCath, patient follows with Dr. Berumen GERD Diverticulosis Left breast cancer s/p radiation and lumpectomy Past Surgical history: Left breast lumpectomy 2010 Peritoneal dialysis shunt placement. Removed in 08/2018 Multiple colonoscopies EGD just done on 06/30/2017 with gastritis and esophagitis. Cholecystectomy was done openly with at age 21. D&C Social history: She is . 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 Family History: Her father at 70 of congestive heart failure, COPD. Mother at 72 of congestive heart failure, COPD DS: Summary Generalized weakness Dehydration Elevated CK - Pt is a 68 y/o female with ESRD on HD (), type 2 DM, chronic anemia, anxiety, and hx of breast cancer. Pt was recently admitted [place] [facility] [place] with ESBL peritonitis. Pt had PermCath placed during that admission and was discharged to rehab at the end of that hospitalization. She states that she has not been eating or drinking much of anything for the last few weeks. She states that she did not like the food at rehab and her appetite has been poor. She was at rehab until 10/02/18 and has been home for the last week. - In the ED she had a catheterized UA performed which was abnormal and urine culture with Strep Sp - Pt was given a dose of Rocephin in the ED - Blood cultures with NGTD - Cefepime stopped - UA/Cx --> less than 15K CFU. Colonized. NO treatment - Pts labs appear dehydrated as pt clinically appears dehydrated - Chest X-Ray (10/10/18) -->No acute cardiopulmonary disease demonstrated. - CT Abdomen/Pelvis (10/10/18) 1. An apparent tiny stone in the proximal left ureter but without associated hydronephrosis or hydroureter. 2. No acute abnormalities are demonstrated. 3. Numerous cysts and nonobstructing stones again seen of both kidneys. 4. Resolved free air. - PT daily - Encourage oral intake, add supplements with meals, diet decreased to full liquids on 10/11 due to N/V - Zofran PRN prior to meals - Supportive care Nausea/Vomiting - long h/o DM2 - GES --> negative - haldol prn nausa - improved - Pt feels that she can NOT tolerate renvela - pt requesting discharge - anticipate discharge to home with HHC/PT 10/16/18 ESRD on HD - She has been receiving HD on . - Consulted to Dr. Berumen, her change advisor and she underwent HD on 10/10/18 - Case d/w Dr. Berumen (10/16). Formulary limited at [place]. He will further address pt's hypercalcemia outpt. Hx A. fib - Cont. Amiodarone 200mg daily, metoprolol 50mg BID, and Cardizem CD 120mg daily Type 2 diabetes controlled by diet - Renal diet back down to full liquids on 10/11 Chronic anemia likely secondary to end-stage renal disease on peritoneal dialysis - Labs at admission with Hgb 12.4 but pt appears dehydrated so this is likely hemoconcentration - Repeat labs are stable Time Spent with Patient Total time spent providing and/or coordinating discharge services: Quality: VTE Deep Vein Thrombosis/Pulmonary Embolism Present on Admission: No Results Labs on day of discharge: Labs from last 24 hours 10/16/18 10/15/18 10/15/18 08:25 20:52 15:33 POC Glucose 94 102 Carcinoembryonic Ag CA 15-3 Antigen 15.8 CA 19-9 Antigen CA 125 Antigen 10/15/18 10/15/18 10/15/18 15:33 15:33 15:33 POC Glucose Carcinoembryonic Ag 7.3 H CA 15-3 Antigen CA 19-9 Antigen 34.8 CA 125 Antigen 27.6 Impressions ITS Impressions Chest X-Ray 10/10/18 11:19 CONCLUSION: No acute cardiopulmonary disease demonstrated. Head CT 10/10/18 11:19 CONCLUSION: Negative noncontrast head CT. . Abdomen/Pelvis CT 10/10/18 11:20 CONCLUSION: 1. An apparent tiny stone in the proximal left ureter but without associated hydronephrosis or hydroureter. 2. No acute abnormalities are demonstrated. 3. Numerous cysts and nonobstructing stones again seen of both kidneys. 4. Resolved free air. Gastric Emptying Nuclear Medicine 10/14/18 00:00 CONCLUSION: 1. Normal gastric emptying half-time and kinetics. Discharge Plan Discharge Condition Condition: Stable Physicians Team Primary Care Provider: Christopher Park Attending Provider: Justin Caballero Other Providers: Josh Berumen ; Leydi Camacho ; [facility] ; Stanley Seo V Rxs /Orders / Referrals /Forms Prescriptions: No Action dicyclomine 20 mg Tablet 20 mg PO TIDAC RF: 0 metoprolol tartrate 50 mg Tablet 50 mg PO BID RF: 0 docusate sodium [Colace] 100 mg Capsule 100 mg PO DAILY PRN (Reason: Constipation) RF: 0 Bacillus coagulans [Digestive Advantage] 250 million cell Tablet,Chewable 1 tab PO DAILY RF: 0 sevelamer carbonate [Renvela] 800 mg Tablet 3,200 mg PO QID RF: 0 diltiazem HCl 120 mg Capsule,Extended Release 24hr 120 mg PO DAILY Qty: 30 RF: 0 alprazolam 0.5 mg Tablet 0.5 mg PO TID PRN (Reason: Anxiety) Qty: 10 RF: 0 amiodarone 200 mg Tablet 200 mg PO DAILY RF: 0 cinacalcet [Sensipar] 60 mg Tablet 60 mg PO DAILY RF: 0 B complex with C#20-folic acid [Triphrocaps] 1 mg Capsule 1 cap PO DAILY RF: 0 [id number] [Creon] 6,000-19,000 -30,000 unit Capsule,Delayed Release(Dr/Ec) 6,000 units PO TID RF: 0 amiodarone 200 mg Tablet 200 mg PO DAILY RF: 0 tramadol 50 mg Tablet 50 mg PO Q6H PRN (Reason: Pain) RF: 0 linezolid 600 mg Tablet 600 mg PO Q12H RF: 0 mirtazapine [Remeron] 30 mg Tablet 30 mg PO DAILY RF: 0 Referrals: Christopher Park [Primary Care Provider] - See Instructions Status ED Status: Left Department
--- NOTE | 2018-10-16 15:29 | P.DCO ---
Physical Therapy Order: Evaluate and treat, Improve ambulation and Strength and gait training Home Health Nursing Order: Medical education, Signs/symptoms of disease process, Medication education-adverse effect, Wound care and dressing changes and Nursing assessment with vital signs Case Management Consult Case Management Consult-Home Health: Yes I have seen patient Brandi Chavez on 10/16/18. My clinical findings support the need for the requested home health care services because: Limited mobility due to disease progression, Deconditioned with increased weakness, Medication compliance is questionable, Limited ability to care for self and Need for psychosocial assistance I certify that my clinical findings support that this patient is homebound because: Unsafe to leave home unassisted, Need for psychosocial assistance and Unable to use public transportation
[2018-10-16] MEDS: ALPRAZolam 0.5 MG Tablet PO PRN (22:51)
[2018-10-17] MEDS: Mirtazapine 15 MG Tablet PO SCH (08:41)
[2018-10-17] MEDS: dilTIAZem CD 120 MG Capsule PO SCH (08:42)
[2018-10-17] MEDS: Vitamins A,C,E/Lutein/Minerals Tablet PO SCH (08:42)
[2018-10-17] MEDS: Senna/Docusate Sodium 8.6/50 MG Tablet PO SCH ×2 (08:42→22:21)
[2018-10-17] MEDS: Metoprolol Tartrate 50 MG Tablet PO SCH ×2 (08:43→22:20)
[2018-10-17] MEDS: Amiodarone 200 MG Tablet PO SCH (08:43)
[2018-10-17] MEDS: BACILLUS COAGULANS PO SCH (08:43)
[2018-10-17 11:32] LABS: Calcium 11.2 mg/dL (8.5-10.1); Carbon Dioxide 30.7 meq/L (21.0-32.0); Potassium 4.8 meq/L (3.5-5.1)
--- NOTE | 2018-10-17 16:50 | P.PNIM ---
Subjective Interval history: Discharge held today d/t low blood sugar on accucheck. Repeat blood sugar on BMP was 86. Pt unable to obtain HD until 5PM. Discharge to home in the morning. Physical Exam Vital signs: Last Vital Signs Temp 97.3 F L 10/17/18 16:00 Pulse 57 L 10/17/18 16:00 Resp 16 10/17/18 16:00 BP 147/71 H 10/17/18 16:00 Pulse Ox 100 10/17/18 16:00 Narrative: GENERAL: NAD, Awake and alert CARDIO: Regular. RESP: Clear to auscultation. Breath sounds equal bilaterally. ABD: +BS, soft, non-tender, nondistended. Two wound on abdomen, one in the lower left side with clean dressing and packing in place, no erythema or drainage noted. Other wound to the right of midline and also with clean dressing and packing in place, no erythema or drainage noted. EXT: No edema. No obvious deformities. Results Labs CBC & Chem 7: 10/13/18 07:48 10/17/18 10:30 Assessment and Plan Plan Generalized weakness Dehydration Elevated CK - Pt is a 68 y/o female with ESRD on HD (), type 2 DM, chronic anemia, anxiety, and hx of breast cancer. Pt was recently admitted to [facility] [place] in 08/2018 with ESBL peritonitis. Pt had PermCath placed during that admission and was discharged to rehab at the end of that hospitalization. She states that she has not been eating or drinking much of anything for the last few weeks. She states that she did not like the food at rehab and her appetite has been poor. She was at rehab until 10/02/18 and has been home for the last week. - In the ED she had a catheterized UA performed which was abnormal and urine culture with Strep Sp - Pt was given a dose of Rocephin in the ED - Blood cultures with NGTD - Cefepime stopped - UA/Cx --> less than 15K CFU. Colonized. NO treatment - Pts labs appear dehydrated as pt clinically appears dehydrated - Chest X-Ray (10/10/18) -->No acute cardiopulmonary disease demonstrated. - CT Abdomen/Pelvis (10/10/18) 1. An apparent tiny stone in the proximal left ureter but without associated hydronephrosis or hydroureter. 2. No acute abnormalities are demonstrated. 3. Numerous cysts and nonobstructing stones again seen of both kidneys. 4. Resolved free air. - PT daily - Encourage oral intake, add supplements with meals, diet decreased to full liquids on 10/11 due to N/V - Zofran PRN prior to meals - Supportive care Nausea/Vomiting - long h/o DM2 - GES --> negative - haldol prn nausa - improved - Pt feels that she can NOT tolerate renvela - pt requesting discharge - anticipate discharge to home with HHC/PT 10/16/18 ESRD on HD - She has been receiving HD on . - Consulted to Dr. Berumen, her button facing machine operator and she underwent HD on 10/10/18 - Case d/w Dr. Berumen (10/16). Formulary limited at [place]. He will further address pt's hypercalcemia outpt. Hx A. fib - Cont. Amiodarone 200mg daily, metoprolol 50mg BID, and Cardizem CD 120mg daily Type 2 diabetes controlled by diet - Renal diet back down to full liquids on 10/11 Chronic anemia likely secondary to end-stage renal disease on peritoneal dialysis - Labs at admission with Hgb 12.4 but pt appears dehydrated so this is likely hemoconcentration - Repeat labs are stable DVT prophylaxis with SCDs Progress Note: Quality VTE Deep Vein Thrombosis/Pulmonary Embolism Present on Admission: No
[2018-10-17 21:14] VITALS: RESP 18
--- NOTE | 2018-10-17 21:25 | P.PNNP ---
Subjective Interval history: Patient seen in the afternoon, eating but has recurrent Hypoglycemia, not in distress. Physical Exam Vital signs: Vital Signs 10/17/18 00:00 10/17/18 04:55 10/17/18 08:00 Temperature 97.8 F 97.6 F 97.3 F L Pulse Rate 62 56 L 56 L Respiratory Rate 18 18 16 Blood Pressure 123/56 L 136/65 125/62 Pulse Oximetry 98 98 99 10/17/18 12:00 10/17/18 16:00 10/17/18 20:55 Temperature 97.5 F L 97.3 F L 97.7 F Pulse Rate 57 L 57 L 65 Respiratory Rate 20 16 18 Blood Pressure 159/76 H 147/71 H 146/68 H Pulse Oximetry 100 100 100 Intake & Output 10/17/18 10/17/18 10/18/18 06:59 18:59 06:59 Weight 86.7 kg Other: # Voids 1 Date of Last Bowel Movement 10/16/18 10/17/18 # Bowel Movements 1 2 Narrative: GENERAL: Well-nourished, well-developed patient. SKIN: Warm and dry. HEAD: Normocephalic. EYES: No scleral icterus. No injection or drainage. NECK: Supple, trachea midline. No JVD or lymphadenopathy. CARDIOVASCULAR: Regular rate and rhythm without murmurs, gallops, or rubs. RESPIRATORY: Breath sounds equal bilaterally. No accessory muscle use. GASTROINTESTINAL: Abdomen soft, non-tender, nondistended. Bandage in place EXTREMITIES: No edema NEUROLOGICAL: Awake, alert, and oriented x 3. Non-focal. Assessment and Plan - Assessment (1) End stage renal disease on dialysis Code(s): N18.6 - End stage renal disease; Z99.2 - Dependence on renal dialysis Status: Chronic Plan: Patient on hemodialysis 3 times a week, TTS. She said she develops dysphagia as the spells are large and she cannot even swallow it with applesauce On Fosrenol 1 g 3 times daily Calcium still elevated, has high PTH, workup for tumor markers CEA is slightly elevated other markers CA 199, CA 153 are negative -Continue to monitor -Continue supportive care BS is off and on low, HD will be done later today. (2) Hypercalcemia Code(s): E83.52 - Hypercalcemia Status: Acute Plan: Current corrected calcium is 11.2, PTH 772, Fosrenol added in place of Renvela -Continue with Sensipar 90 mg daily. In the past, she did have complaints of upset stomach with Sensipar. There is question of whether or not this patient is compliant with this medication. Tumor markers CEA slightly elevated nonspecific finding Follow-up with GI as outpatient may need to consider colonoscopy (3) Dehydration Code(s): E86.0 - Dehydration Status: Acute Plan: Patient has been doing better she said eating improved and she would like to be discharged. (4) UTI (urinary tract infection) Code(s): N39.0 - Urinary tract infection, site not specified Status: Acute Plan: Cefepime stopped - UA/Cx --> less than 15K CFU. Colonized. NO treatment - Plan I have seen and examined the patient care discussed with NANDO Guerrero, patient has some nausea and vomiting earlier, she is seen again during hemodialysis Ultrafiltration of 2.5 L as tolerated Patient is a long-term diabetic and may have a complication of gastroparesis, her calcium is high due to the immobilization and hyperparathyroidism continue with Sensipar I agree with above assessment and plan
[2018-10-17] MEDS: ALPRAZolam 0.5 MG Tablet PO PRN (22:20)
[2018-10-18] MEDS ORDERED: Dextrose 50% in Water 50 ML Vial IV.PUSH PRN (00:18)
[2018-10-18 05:43] VITALS: O2SAT 98
[2018-10-18 08:09] VITALS: BP 130/63; PULSE 66; TEMP 97.7
== END 2018-10-18 09:05 | disposition home health service (06) | DRG 640 ==
LOC: NEPC 11:01 → NEDA 11:01 → NEPHCDU 14:09 → N05 10-12 19:06
PROVIDERS: ADMIT Hospitalist; ATTEND Hospitalist
DX: Z82.71 Family history of polycystic kidney; Q61.3 Polycystic kidney, unspecified; Z66 Do not resuscitate; E86.0 Dehydration; E11.22 Type 2 diabetes mellitus with diabetic chronic kidney disease; K57.90 Diverticulosis of intestine, part unspecified, without perforation or abscess without bleeding; Z16.21 Resistance to vancomycin; N18.6 End stage renal disease; B95.2 Enterococcus as the cause of diseases classified elsewhere; K21.9 Gastro-esophageal reflux disease without esophagitis; F41.9 Anxiety disorder, unspecified; D63.1 Anemia in chronic kidney disease; Z92.3 Personal history of irradiation; I48.0 Paroxysmal atrial fibrillation; Z99.2 Dependence on renal dialysis; L89.151 Pressure ulcer of sacral region, stage 1; I12.0 Hypertensive chronic kidney disease with stage 5 chronic kidney disease or end stage renal disease; Z82.49 Family history of ischemic heart disease and other diseases of the circulatory system; Z83.3 Family history of diabetes mellitus; N25.81 Secondary hyperparathyroidism of renal origin; K29.70 Gastritis, unspecified, without bleeding; Z85.3 Personal history of malignant neoplasm of breast; E11.649 Type 2 diabetes mellitus with hypoglycemia without coma; K59.00 Constipation, unspecified
CPT/HCPCS: 70450; 71010; 71045; 74176; 78264; 80048; 80053; 80069; 80074; 81001; 82040; 82378; 82550; 82552; 82948; 82962; 83605; 83735; 83970; 84100; 84443; 84484; 85025; 85610; 85730; 86300; 86301; 86304; 87040; 87077; 87086; 87186; 90761; 90774; 90775; 90784; 90935; 93005; 96361; 96365; 96374; 96375; 96376; 97110; 97116; 97162; 97530; 99285; A9541; C8952; G0378; G8987; G8988; J0692; J0696; J1580; J1610; J1644; J2405; J2765; J7030; J7040; P9047